=== PATIENT | female | born 1940 | race Caucasian/White ===

== ENCOUNTER 2016-03-31 09:43 | Outpatient (CLI) | payer MEDICARE | END 2016-03-31 09:44 | disposition home or self-care (01) | DX: Z12.31 Encounter for screening mammogram for malignant neoplasm of breast (principal) ==

== ENCOUNTER 2016-10-28 07:17 | Outpatient (CLI) | payer MEDICARE ==
--- NOTE | 2016-10-28 11:48 | Ultrasound Report ---
COMPLETE ABDOMINAL ULTRASOUND: 10/28/2016 CLINICAL INDICATION: Pain. TECHNIQUE: Real-time scanning was performed with telephone services sales representative static images obtained. FINDINGS: The liver measures 12.8 cm. Hepatic echogenicity is normal. No intrahepatic biliary dila tation or focal parenchymal lesion is present. The common bile duct measures 6 mm. The gallbladder is normal, as is the pancreas. The kidneys are normal, with the right measuring 10.1 cm and the left measuring 10.3 cm. The spleen measures 7.1 cm, and appears unremarkable. The abdominal aorta is no rmal in caliber. The inferior vena cava is unremarkable. No free fluid is present. IMPRESSION: NORMAL ABDOMINAL ULTRASOUND. JOB #: [id number] EXT JOB #:[id number]
== END 2016-10-28 07:18 | disposition home or self-care (01) ==
LOC: DI 07:17
PROVIDERS: ATTEND Registered Nurse
DX: R10.11 Right upper quadrant pain (principal)
CPT/HCPCS: 76700

== ENCOUNTER 2017-02-09 10:04 | Outpatient (CLI) | payer MEDICARE ==
--- NOTE | 2017-02-11 16:57 | DEXA Report ---
DEXA: 02/09/2017 CLINICAL INDICATION: Postmenopausal. TECHNIQUE: Dual energy x-ray absorptiometry (DXA) was performed on a [employer] system. Regions measured are the AP spine, femoral neck, and, if needed, forearm. COMPARISON: None. In accordance with the International Society for Clinical Densitometry (ISCD) guidelines, data from previous exams may be reanalyzed using current recommendations and techniques. This is done to allow a more accurate basis for comparison with the current study. FINDINGS: The data for the lumbar spine is as follows: REGION BMD (g/cm/cm) T-SCORE Z-SCORE L1 0.720 -3.4 -1.7 L2 0.957 -2.0 -0.4 L3 1.009 -1.6 0.1 L4 1.058 -1.2 0.5 TOTAL 0.948 -1.9 -0.3 NOTE: All evaluable vertebrae are used for classification. The data for the hip is as follows: REGION BMD (g/cm/cm) T-SCORE Z-SCORE Neck 0.657 -2.7 -0.8 TOTAL 0.672 -2.7 -0.9 NOTE: The femoral neck or total proximal femur, whichever is lowest, is used for classification. IMPRESSION THE WHO CLASSIFICATION BASED ON THE INTERNATIONAL REFERENCE STANDARD IS OSTEOPOROSIS. THE FRACTURE RISK IS HIGH. RECOMMENDATION: Patients with diagnosis of osteoporosis or osteopenia should have regular bone mineral density assessment. For those eligible for Medicare, routine testing is allowed once every 2 years. Testing frequency can be increased for patients who have rapidly progressing disease or for those who are receiving medical therapy to restore bone mass. COMMENT: World Health Organization (WHO) definitions for osteoporosis and osteopenia: NORMAL BMD: T-score at 1.0 or higher, fracture risk is low. OSTEOPENIA BMD: T-score between 1.0 and -2.5, fracture risk is increased. OSTEOPOROSIS BMD: T-score at 2.5 or lower, fracture risk high. National Osteoporosis Foundation recommends: 1. Obtain adequate dietary calcium (at least 1200 mg per day) and vitamin D (400 -800 international units per day). 2. Participate, as appropriate, in regular weightbearing and muscle- strengthening exercise. 3. Avoid tobacco use and reduce alcohol and caffeine intake. 4. For more detailed information see the website at www.NOF.org. TD: 02/09/2017 18:53 MTDToney
== END 2017-02-09 10:05 | disposition home or self-care (01) ==
LOC: DI 10:04
PROVIDERS: ATTEND Registered Nurse
DX: M81.0 Age-related osteoporosis without current pathological fracture (principal); N95.8 Other specified menopausal and perimenopausal disorders
CPT/HCPCS: 77080

== ENCOUNTER 2019-08-24 07:11 | Day surgery (SDC) | payer MEDICARE ==
[2019-08-24] MEDS ORDERED: fentaNYL 100 MCG/2 ML VIAL IVP ONE (07:12)
[2019-08-24] MEDS ORDERED: MIDAZOLAM 2 MG/2 ML VIAL IVP ONE (07:12)
[2019-08-24] MEDS ORDERED: LACTATED RINGERS 1,000 ML IV ONE (07:58)
[2019-08-24] MEDS ORDERED: LIDO GARGLE 30 ML BOTTLE ONE (08:48)
[2019-08-24] MEDS ORDERED: LIDO GARGLE 30 ML BOTTLE PO ONE (09:11)
[2019-08-24] MEDS ORDERED: BENZOCAINE/TETRACAINE/BUTAMBEN 20 GM TOP ONE (09:12)
[2019-08-24 10:04] VITALS: BP 144/63
== END 2019-08-24 07:12 | disposition home or self-care (01) ==
LOC: SDS 07:11
PROVIDERS: ATTEND Surgery
PROC: 0DB68ZX Excision of Stomach, Via Natural or Artificial Opening Endoscopic, Diagnostic (ICD-10-PCS; 2019-08-24)
PROC: 0DB58ZX Excision of Esophagus, Via Natural or Artificial Opening Endoscopic, Diagnostic (ICD-10-PCS; 2019-08-24)
PROC: 0DB98ZX Excision of Duodenum, Via Natural or Artificial Opening Endoscopic, Diagnostic (ICD-10-PCS; principal; 2019-08-24 08:15)
DX: K21.9 Gastro-esophageal reflux disease without esophagitis (principal); R13.10 Dysphagia, unspecified; K22.8 Other specified diseases of esophagus
CPT/HCPCS: 43239; A9270; J7120

== ENCOUNTER 2019-09-06 14:15 | Outpatient (CLI) | payer MEDICARE ==
--- NOTE | 2019-09-06 16:15 | DEXA Report ---
Reason: OSTEOPOROSIS Procedure Date: 09/06/2019 Accession Number: [id number] / [id number] Procedure: DEX - Dexa Spine and/or Hip CPT Code: Final Report FULL RESULT: PROCEDURE: Dexa Spine and/or Hip INDICATIONS: OSTEOPOROSIS TECHNIQUE: Dual energy x-ray absorptiometry (DXA) was performed on a [employer] System. Regions measured are the AP Spine, femoral neck, and if needed forearm. COMPARISON: None. FINDINGS: Lumbar Spine: Bone Mineral Density 0.974 g/cm/cm,T score -1.7, osteopenia Left Hip: Bone Mineral Density 0.622 g/cm/cm,T score -3.1, osteoporosis Left Femoral Neck: Bone Mineral Density 0.605 g/cm/cm, T score -3.1, osteoporosis (T score greater or equal to -1.0: NORMAL) (T score from -1.1 to -2.4: OSTEOPENIA) (T score less than or equal to -2.5 to: OSTEOPOROSIS) Impression: Osteoporosis. Patients with diagnosis of osteoporosis or osteopenia should have regular bone mineral density assessment. For those eligible for Medicare, routine testing is allowed once every 2 years. Testing frequency can be increased for patients who have rapidly progressing disease or for those who are receiving medical therapy to restore bone mass. Reviewed by: Judy Saucedo MD, PhD on 09/06/2019 4:13 PM PDT Approved by: Judy Saucedo MD, PhD on 09/06/2019 4:13 PM PDT Station ID: [id number]
== END 2019-09-06 14:16 | disposition home or self-care (01) ==
LOC: DI 14:15
PROVIDERS: ATTEND Registered Nurse
DX: M81.0 Age-related osteoporosis without current pathological fracture (principal); M85.88 Other specified disorders of bone density and structure, other site
CPT/HCPCS: 77080

== ENCOUNTER 2021-03-06 17:28 | Emergency (ER) | payer MEDICARE ==
[2021-03-06 18:36] LABS: BASOPHILS # (AUTO) 0.1 10^3/uL (0.0-0.1); BASOPHILS % (AUTO) 1.1 %; EOSINOPHILS # (AUTO) 0.4 10^3/uL (0.0-0.7); EOSINOPHILS % (AUTO) 7.5 %; HCT - HEMATOCRIT 38.1 % (37.0-47.0); HGB - HEMOGLOBIN 13.2 g/dL (12.0-16.0); LYMPHOCYTES # (AUTO) 1.3 10^3/uL (1.5-3.5); LYMPHOCYTES % (AUTO) 24.3 %; MEAN CORPUSCULAR HEMOGLOBIN 33.8 pg (27.0-31.0); MEAN CORPUSCULAR HGB CONC 34.6 g/dL (32.0-36.0); MEAN CORPUSCULAR VOLUME 97.7 fL (81.0-99.0); MONOCYTES # (AUTO) 0.8 10^3/uL (0.0-1.0); MONOCYTES % (AUTO) 14.8 %; NEUTROPHILS # (AUTO) 2.9 10^3/uL (1.5-6.6); NEUTROPHILS % (AUTO) 52.1 %; PLT - PLATELET COUNT 236 10^3/uL (130-450); RED CELL DISTRIBUTION WIDTH 12.6 % (12.0-15.0); WHITE BLOOD COUNT 5.5 x10^3/uL (4.8-10.8)
[2021-03-06 18:46] LABS: ALBUMIN 3.9 g/dL (3.2-5.5); ALBUMIN/GLOBULIN RATIO 1.2 (1.0-2.2); BILIRUBIN,TOTAL 0.5 mg/dL (0.2-1.0); CALCIUM 8.9 mg/dL (8.5-10.3); CREATININE 0.7 mg/dL (0.4-1.0); POTASSIUM 4.2 mmol/L (3.5-5.0); TOTAL PROTEIN 7.1 g/dL (6.7-8.2)
--- NOTE | 2021-03-06 20:18 | ED Physician Documentation ---
History of Present Illness - Stated complaint Stated Complaint: CRITICAL POTASSIUM LEVELS, PCP SENT - Chief complaint Chief Complaint: General - Additonal information Additional information: 80-year-old female was advised to come to the emergency department for evaluation of critically low potassium obtained on screening labs on the . Patient reports that her provider told her her potassium was low however it appears that it was likely the sodium that they were referencing. Labs drawn on the showed a sodium of 125. Patient reports feeling well. No headache, nausea, vomiting, chest pain or shortness of air. No unilateral leg swelling. She does not take any diuretics. Past medical history: hypertension, diabetes Meds metformin, glipizide, atorvastatin, coenzyme Q 10, 81 mg aspirin. Review of Systems Constitutional: denies: Fever, Chills Eyes: reports: Reviewed and negative Throat: reports: Reviewed and negative Cardiac: reports: Reviewed and negative Respiratory: reports: Reviewed and negative. denies: Dyspnea, Cough, Hemoptysis, Wheezing, Other GI: reports: Reviewed and negative : reports: Reviewed and negative Skin: reports: Reviewed and negative Musculoskeletal: reports: Reviewed and negative PD PAST MEDICAL HISTORY - Past Medical History Cardiovascular: Hypertension, High cholesterol Endocrine/Autoimmune: Type 2 diabetes GI: GERD, Chronic diarrhea HEENT: None Psych: Anxiety, Panic attacks - Present Medications Home Medications: Ambulatory Orders Medication Instructions Recorded Confirmed Ascorbic Acid [Vitamin C] 500 mg PO DAILY 03/12/16 03/12/16 Aspirin [Aspir-Low] 81 mg PO DAILY 03/12/16 03/12/16 Cyanocobalamin (Vitamin B-12) 500 mcg PO BID 03/12/16 03/12/16 [Vitamin B-12] Metformin HCl 500 mg PO BIDWM 03/12/16 03/12/16 Multivit/Folic Acid/Vit K1 1 each PO DAILY 03/12/16 03/12/16 [One-A-Day Women's 50 Plus Tab] Mylanta 1 tbs PO TID 03/12/16 03/13/16 Simvastatin 60 mg PO QPM 03/12/16 08/24/19 glipiZIDE [Glipizide] 5 mg PO BIDWM 03/12/16 03/12/16 - Allergies Allergies/Adverse Reactions: Allergies Allergy/AdvReac Type Severity Reaction Status Date / Time NSAIDS (Non-Steroidal Allergy Respiratory Verified 03/06/21 17:46 Anti-Inflamma blood pressure meds Allergy Anaphylaxis Uncoded 03/06/21 17:46 - Social History Smoking Status: Never smoker PD ED PE NORMAL - General General: Alert and oriented X 3, No acute distress - HEENT HEENT: PERRL - Neck Neck: Supple, no meningeal sign, No adenopathy - Cardiac Cardiac: RRR, No murmur - Respiratory Respiratory: No respiratory distress, Clear bilaterally - Abdomen Abdomen: Normal bowel sounds, Soft, Non tender, Non distended - Female Female : Deferred - Back Back: No CVA TTP - Derm Derm: Normal color, Warm and dry Results - Vitals Vitals: Vital Signs - 24 hr 03/06/21 17:42 Temperature 36.3 C L Heart Rate 91 Respiratory 16 Rate Blood Pressure 166/80 H O2 Saturation 99 Oxygen O2 Source Room air - Labs Labs: Laboratory Tests 03/06/21 03/06/21 18:29 18:29 WBC 5.5 RBC 3.90 L Hgb 13.2 Hct 38.1 MCV 97.7 MCH 33.8 H MCHC 34.6 RDW 12.6 Plt Count 236 MPV 9.0 Neut # (Auto) 2.9 Lymph # (Auto) 1.3 L [place] # (Auto) 0.8 Eos # (Auto) 0.4 Baso # (Auto) 0.1 Absolute Nucleated RBC 0.00 Nucleated RBC % 0.0 Sodium 127 L Potassium 4.2 Chloride 88 L Carbon Dioxide 30 Anion Gap 9.0 BUN 14 Creatinine 0.7 Estimated GFR (MDRD) 81 L Glucose 241 H Calcium 8.9 Total Bilirubin 0.5 AST 22 ALT 20 Alkaline Phosphatase 52 Total Protein 7.1 Albumin 3.9 Globulin 3.2 Albumin/Globulin Ratio 1.2 Lipase 28 PD MEDICAL DECISION MAKING - ED course Complexity details: reviewed results, re-evaluated patient, considered differential, d/w patient ED course: Well-appearing 80-year-old female presents emergency department for evaluation of abnormal labs. Reportedly she was told she had a critically low potassium. In review of the labs obtained on the her sodium is 125. On repeat today it is 127. The patient has no headache, nausea, vomiting or altered mentation. Clinically she would not meet the criteria for hospitalization nor does she desire this. Patient is not taking any diuretics and has no reason for potassium or sodium loss. Patient is encouraged to take an extra dose of salt with her meals as well as to Limit her water intake to 1.5 L daily. Advised to have close follow-up with her primary care doctor next week in order to have her labs repeated. Departure - Departure Disposition: 01 Home, Self Care Clinical Impression: Hyponatremia Condition: Stable Record reviewed to determine appropriate education?: Yes Instructions: Hyponatremia Dc Follow-Up: SHALA JACKSON ARNP [Primary Care Provider] - Comments: Cass your provider advised you to come into the ER for reevaluation of your labs. He had reportedly said that you had a low potassium but I suspect that he meant you had a low sodium level. Your sodium level on the was 125. Today it is 127. Because she do not have any other worrisome findings on your clinical exam or labs there is no indication to admit you to the hospital. I recommend that you limit your water intake to 1.5 L a day and consume some extra salt over the next week. I would like you to have your labs rechecked with your primary care doctor next week. If you develop a sudden severe headache or have uncontrolled vomiting then please return immediately to the ER for a second evaluation.
[2021-03-06 20:23] VITALS: BP 138/80
== END 2021-03-06 20:21 | disposition home or self-care (01) ==
LOC: ED 17:28
DX: E87.1 Hypo-osmolality and hyponatremia (principal); E11.9 Type 2 diabetes mellitus without complications; Z79.84 Long term (current) use of oral hypoglycemic drugs; I10 Essential (primary) hypertension
CPT/HCPCS: 36415; 80053; 83690; 85025; 99282; 99283

== ENCOUNTER 2021-08-13 08:00 | Outpatient (CLI) | payer MEDICARE | END 2021-08-13 08:01 | disposition home or self-care (01) | LOC: LAB.S 08:00 | PROVIDERS: ATTEND Physician Assistant | DX: N39.0 Urinary tract infection, site not specified (principal) | CPT/HCPCS: 87086 ==

== ENCOUNTER 2021-10-17 08:00 | Outpatient (CLI) | payer MEDICARE | END 2021-10-17 23:59 | disposition home or self-care (01) | LOC: LAB 08:00 | PROVIDERS: ATTEND Physician Assistant | DX: R39.15 Urgency of urination (principal) | CPT/HCPCS: 87077; 87086 ==

== ENCOUNTER 2022-01-14 11:37 | Emergency (ER) | payer MEDICARE ==
[2022-01-14 12:16] LABS: BASOPHILS # (AUTO) 0.1 10^3/uL (0.0-0.1); EOSINOPHILS % (AUTO) 0.6 %; HCT - HEMATOCRIT 34.9 % (37.0-47.0); HGB - HEMOGLOBIN 12.1 g/dL (12.0-16.0); LYMPHOCYTES # (AUTO) 0.5 10^3/uL (1.5-3.5); MEAN CORPUSCULAR HEMOGLOBIN 34.3 pg (27.0-31.0); MEAN CORPUSCULAR HGB CONC 34.7 g/dL (32.0-36.0); MEAN CORPUSCULAR VOLUME 98.9 fL (81.0-99.0); MONOCYTES # (AUTO) 0.7 10^3/uL (0.0-1.0); MONOCYTES % (AUTO) 13.9 %; NEUTROPHILS # (AUTO) 3.8 10^3/uL (1.5-6.6); NEUTROPHILS % (AUTO) 75.1 %; PLT - PLATELET COUNT 183 10^3/uL (130-450); RED BLOOD COUNT 3.53 10^6/uL (4.20-5.40); RED CELL DISTRIBUTION WIDTH 12.5 % (12.0-15.0); WHITE BLOOD COUNT 5.1 x10^3/uL (4.8-10.8)
--- NOTE | 2022-01-14 12:21 | XRAY Report ---
PROCEDURE: Chest 1 View X-Ray INDICATIONS: cough TECHNIQUE: One view of the chest was acquired. COMPARISON: None. FINDINGS: Surgical changes and devices: None. Lungs and pleura: No pleural effusions or pneumothorax. Lungs are clear. Mediastinum: Mediastinal contours appear normal. Heart size is mildly enlarged. Bones and chest wall: No suspicious bony lesions. Overlying soft tissues appear unremarkable. IMPRESSION: No acute cardiopulmonary findings. Mild cardiomegaly. Reviewed by: Rayna Simeon MD on 01/14/2022 12:20 PM [facility] Approved by: Rayna Simeon MD on 01/14/2022 12:20 PM [facility] Station ID: [id number]
--- NOTE | 2022-01-14 12:26 | ED Physician Documentation ---
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 Patient has recently had a cough which became much worse yesterday and she was coughing significantly throughout the day. In the evening time, noted that she appeared to have some difficulty with her speech. He felt that she was having trouble in completing her sentences And seemed to slightly slur her words. This morning he says that her speech is back to normal but she seems confused from her baseline. She does not have a history of known dementia.Other than the cough she has not had any other recent illnesses. She has been eating normally and not having difficulties with swallowing.Patient denies fall or injury. She does not take a blood thinner. Denies headache, chest pain, difficulty breathing, abdominal pain, vomiting, dysuria. Review of Systems Constitutional: denies: Fever Nose: reports: Congestion Cardiac: denies: Chest pain / pressure Respiratory: reports: Cough. denies: Dyspnea GI: denies: Abdominal Pain : denies: Dysuria Neurologic: denies: Syncope, Headache PD PAST MEDICAL HISTORY - Past Medical History Cardiovascular: Hypertension, High cholesterol Endocrine/Autoimmune: Type 2 diabetes GI: GERD, Chronic diarrhea HEENT: None Psych: Anxiety, Panic attacks - Present Medications Home Medications: Ambulatory Orders Medication Instructions Recorded Confirmed Ascorbic Acid [Vitamin C] 500 mg PO DAILY 03/12/16 09/05/21 Aspirin [Aspir-Low] 81 mg PO DAILY 03/12/16 09/05/21 Cyanocobalamin (Vitamin B-12) 500 mcg PO BID 03/12/16 09/05/21 [Vitamin B-12] Metformin HCl 500 mg PO BIDWM 03/12/16 09/05/21 Multivit/Folic Acid/Vit K1 1 each PO DAILY 03/12/16 09/05/21 [One-A-Day Women's 50 Plus Tab] Mylanta 1 tbs PO TID 03/12/16 09/05/21 Simvastatin 60 mg PO QPM 03/12/16 09/05/21 glipiZIDE [Glipizide] 5 mg PO BIDWM 03/12/16 09/05/21 Benzonatate [Tessalon] 200 mg PO QID PRN #20 cap 01/14/22 - Allergies Allergies/Adverse Reactions: Allergies Allergy/AdvReac Type Severity Reaction Status Date / Time NSAIDS (Non-Steroidal Allergy Respiratory Verified 01/14/22 11:48 Anti-Inflamma - Social History Smoking Status: Never smoker PD ED PE NORMAL - General General: Alert and oriented X 3, No acute distress, Well developed/nourished - HEENT HEENT: Atraumatic, PERRL, EOMI, Moist mucous membranes, Pharynx benign - Neck Neck: Supple, no meningeal sign - Cardiac Cardiac: RRR, No murmur - Respiratory Respiratory: No respiratory distress, Clear bilaterally, Other (Nonproductive cough when taking deep breaths) - Abdomen Abdomen: Soft, Non tender - Derm Derm: Warm and dry - Extremities Extremities: No edema - Neuro Neuro: Alert and oriented X 3, leather coater 2-12 intact, No motor deficit, No sensory deficit Results - Vitals Vitals: Vital Signs - 24 hr 01/14/22 01/14/22 01/14/22 11:45 12:19 12:57 Temperature 37.8 C Heart Rate 100 94 91 Respiratory 18 21 22 Rate Blood Pressure 171/85 H 129/87 H 142/130 H O2 Saturation 96 97 95 01/14/22 01/14/22 01/14/22 13:00 14:11 14:30 Temperature Heart Rate 81 83 87 Respiratory 16 20 20 Rate Blood Pressure 159/81 H 176/71 H 179/71 H O2 Saturation 96 95 98 01/14/22 15:15 Temperature Heart Rate 80 Respiratory 20 Rate Blood Pressure 162/76 H O2 Saturation 100 Oxygen O2 Source Room air - EKG (time done) 1142 Rate: Rate (enter#) (100) Rhythm: Sinus tachycardia [place]: Normal Ischemia: No: ST elevation c/w ischemia - Labs Labs: Laboratory Tests 01/14/22 01/14/22 01/14/22 11:57 12:00 12:00 WBC 5.1 RBC 3.53 L Hgb 12.1 Hct 34.9 L MCV 98.9 MCH 34.3 H MCHC 34.7 RDW 12.5 Plt Count 183 MPV 9.0 Neut # (Auto) 3.8 Lymph # (Auto) 0.5 L [place] # (Auto) 0.7 Eos # (Auto) 0.0 Baso # (Auto) 0.1 Absolute Nucleated RBC 0.00 Nucleated RBC % 0.0 Sodium 125 L Potassium 4.3 Chloride 89 L Carbon Dioxide 27 Anion Gap 9.0 BUN 13 Creatinine 0.6 Estimated GFR (MDRD) 96 Glucose 207 H POC Whole Bld Glucose 232 H Calcium 8.6 Total Bilirubin 0.5 AST 28 ALT 21 Alkaline Phosphatase 50 Total Protein 6.9 Albumin 3.6 Globulin 3.3 Albumin/Globulin Ratio 1.1 Lipase 32 Urine Color Urine Clarity Urine pH Ur Specific [place] Urine Protein Urine Glucose (UA) Urine Ketones Urine Occult Blood Urine Nitrite Urine Bilirubin Urine Urobilinogen Ur Leukocyte Esterase Urine RBC Urine WBC Ur Squamous Epith Cells Urine Bacteria Urine Mucus Ur Microscopic Review Urine Culture Comments Nasal Adenovirus (PCR) Nasal B. parapertussis DNA (PCR) Nasal Coronavir 229E PCR Nasal Coronavir HKU1 PCR Nasal Coronavir NL63 PCR Nasal Coronavir OC43 PCR Nasal Enterovir/Rhinovir PCR Nasal Influenza B PCR Nasal Influenza A PCR Nasal Parainfluen 1 PCR Nasal Parainfluen 2 PCR Nasal Parainfluen 3 PCR Nasal Parainfluen 4 PCR Nasal RSV (PCR) Nasal B.pertussis DNA PCR Nasal C.pneumoniae (PCR) [place] Human Metapneumo PCR Nasal M.pneumoniae (PCR) Nasal SARS-CoV-2 (PCR) 01/14/22 01/14/22 12:15 13:30 WBC RBC Hgb Hct MCV MCH MCHC RDW Plt Count MPV Neut # (Auto) Lymph # (Auto) [place] # (Auto) Eos # (Auto) Baso # (Auto) Absolute Nucleated RBC Nucleated RBC % Sodium Potassium Chloride Carbon Dioxide Anion Gap BUN Creatinine Estimated GFR (MDRD) Glucose POC Whole Bld Glucose Calcium Total Bilirubin AST ALT Alkaline Phosphatase Total Protein Albumin Globulin Albumin/Globulin Ratio Lipase Urine Color YELLOW Urine Clarity HAZY Urine pH 7.0 Ur Specific [place] 1.015 Urine Protein NEGATIVE Urine Glucose (UA) NEGATIVE Urine Ketones NEGATIVE Urine Occult Blood TRACE-INTA Urine Nitrite NEGATIVE Urine Bilirubin NEGATIVE Urine Urobilinogen 0.2 (NORMAL) Ur Leukocyte Esterase TRACE H Urine RBC 0-5 Urine WBC 6-10 H Ur Squamous Epith Cells MOD Squamous H Urine Bacteria Rare Urine Mucus Few Strands Ur Microscopic Review INDICATED Urine Culture Comments NOT INDICATED Nasal Adenovirus (PCR) NOT DETECTED Nasal B. parapertussis DNA (PCR) NOT DETECTED Nasal Coronavir 229E PCR NOT DETECTED Nasal Coronavir HKU1 PCR NOT DETECTED Nasal Coronavir NL63 PCR NOT DETECTED Nasal Coronavir OC43 PCR NOT DETECTED Nasal Enterovir/Rhinovir PCR NOT DETECTED Nasal Influenza B PCR NOT DETECTED Nasal Influenza A PCR NOT DETECTED Nasal Parainfluen 1 PCR NOT DETECTED Nasal Parainfluen 2 PCR NOT DETECTED Nasal Parainfluen 3 PCR DETECTED A Nasal Parainfluen 4 PCR NOT DETECTED Nasal RSV (PCR) NOT DETECTED Nasal B.pertussis DNA PCR NOT DETECTED Nasal C.pneumoniae (PCR) NOT DETECTED [place] Human Metapneumo PCR NOT DETECTED Nasal M.pneumoniae (PCR) NOT DETECTED Nasal SARS-CoV-2 (PCR) NOT DETECTED PD MEDICAL DECISION MAKING - ED course Complexity details: reviewed results, re-evaluated patient, d/w patient, d/w family ED course: Patient is a 81-year-old female presenting for evaluation of some mild confusion, may be some slow speech yesterday and word finding issues. Currently her neuro exam is normal and reports that her symptoms yesterday were brief. She has had a severe cough and Nasal congestion.Per she no longer appears altered and has clear speech. She never had any focal deficits.She never had any difficulty with swallowing.Labs and imaging were obtained. Patient is noted to have a viral URI.She is known to have a harsh cough through her ED course and that seems to be her primary complaint at this time. Suspect that her viral illness Is contributory to the other symptoms Her was noticing.Feel that a stroke is less likely in this setting Given how brief her symptoms were.Patient and were encouraged to continue with supportive care and advised on strict return precautions. Departure - Departure Disposition: 01 Home, Self Care Clinical Impression: Parainfluenza infection, Weakness Condition: Stable Instructions: ED Viral Syndrome Prescriptions: Benzonatate [Tessalon] 200 mg PO QID PRN #20 cap PRN Reason: Cough Comments: Cass was found to have a viral infection called Parainfluenza. This is likely what is causing her cough as well as increased weakness for the past 2 days. Please continue with rest and hydration/eating regularly. I have sent a medication to help with your cough to [facility] in [place]. Please make an appointment for close follow-up with your primary care doctor. Please consider return to the ER with any worsening symptoms. Discharge Date/Time: 01/14/22 15:19
[2022-01-14 12:29] LABS: ALBUMIN 3.6 g/dL (3.2-5.5); ALBUMIN/GLOBULIN RATIO 1.1 (1.0-2.2); BILIRUBIN,TOTAL 0.5 mg/dL (0.2-1.0); CALCIUM 8.6 mg/dL (8.5-10.3); CREATININE 0.6 mg/dL (0.4-1.0); POTASSIUM 4.3 mmol/L (3.5-5.0); TOTAL PROTEIN 6.9 g/dL (6.7-8.2)
[2022-01-14] MEDS ORDERED: guaiFENesin/DEXTROMETHORPHAN 10 ML UDC PO STA (13:30)
[2022-01-14 13:39] LABS: BILIRUBIN,URINE NEGATIVE (NEGATIVE); GLUCOSE, URINE (UA) NEGATIVE (NEGATIVE); KETONES,URINE (UA) NEGATIVE (NEGATIVE); LEUKOCYTE ESTERASE, URINE TRACE (NEGATIVE); NITRITE,URINE NEGATIVE (NEGATIVE); OCCULT BLOOD,URINE TRACE-INTA (NEGATIVE); PROTEIN,URINE NEGATIVE (NEGATIVE); UROBILINOGEN,URINE 0.2 (NORMAL) E.U./dL (NORMAL)
[2022-01-14 13:42] LABS: CLARITY,URINE HAZY (CLEAR)
[2022-01-14 13:45] LABS: B. PARAPERTUSSIS- RESP PCR PAN NOT DETECTED; B. PERTUSSIS- RESP PCR PANEL NOT DETECTED; C. PNEUMONIAE- RESP PCR PANEL NOT DETECTED; CORONAVIRUS 229E-RESP PCR NOT DETECTED; CORONAVIRUS HKU1-RESP PCR NOT DETECTED; CORONAVIRUS NL63-RESP PCR NOT DETECTED; CORONAVIRUS OC43-RESP PCR NOT DETECTED; HUMAN METAPNEUMOVIRUS NOT DETECTED; INFLUENZA A- RESP PCR PANEL NOT DETECTED; INFLUENZA B - RESP PCR PANEL NOT DETECTED; M. PNEUMONIAE- RESP PCR PANEL NOT DETECTED; PARAINFLUENZA VIRUS 1 NOT DETECTED; PARAINFLUENZA VIRUS 2 NOT DETECTED; PARAINFLUENZA VIRUS 3 DETECTED; PARAINFLUENZA VIRUS 4 NOT DETECTED; RHINOVIRUS/ENTEROVIRUS NOT DETECTED; RSV- RESP PCR PANEL NOT DETECTED; SARS-CoV-2 -RESP PCR PANEL NOT DETECTED
[2022-01-14 13:57] LABS: BACTERIA,URINE Rare /HPF (None Seen); MUCUS,URINE Few Strands; RBC,URINE 0-5 /HPF (0-5); SQUAMOUS EPITHELIAL CELL,UR MOD Squamous (<= Few)
--- NOTE | 2022-01-14 14:08 | CT Report ---
PROCEDURE: HEAD WO INDICATIONS: confusion TECHNIQUE: Noncontrast 4.5 mm thick angled axial sections acquired from the foramen magnum to the vertex. For r adiation dose reduction, the following was used: automated exposure control, adjustment of mA and/or kV according to patient size. COMPARISON: None. FINDINGS: Image quality: Excellent CSF spaces: Basal cisterns are patent. Lateral ventricles are symmetric. Volume: Periventricular white matter disease is commonly seen with chronic microangiopathy. Volume lo ss is present. These findings are moderate. Vascular calcifications are present. Brain: No intracranial hemorrhage. Lopez-white differentiation is grossly maintained. Craniofacial structures: No displaced fracture. Sinuses are clear. Orbits are intact. IMPRESSION: No acute intracranial abnormality. Reviewed by: Skip Olivera MD on 01/14/2022 2:06 PM PST Approved by: Skip Olivera MD on 01/14/2022 2:06 PM [facility] Station ID: [id number]
[2022-01-14 15:15] VITALS: BP 162/76
== END 2022-01-14 15:19 | disposition home or self-care (01) ==
LOC: ED 11:37
DX: B34.8 Other viral infections of unspecified site (principal); R53.1 Weakness; Z20.822 Contact with and (suspected) exposure to COVID-19
CPT/HCPCS: 36415; 70450; 71045; 80053; 81001; 83690; 85025; 87633; 93005; 99284; A9270; 81003; 84484; 87086

== ENCOUNTER 2022-02-26 15:33 | Outpatient (CLI) | payer MEDICARE ==
[2022-02-26 15:54] LABS: ALBUMIN 3.4 g/dL (3.2-5.5); BILIRUBIN,TOTAL 0.5 mg/dL (0.2-1.0); CALCIUM 9.1 mg/dL (8.5-10.3); CREATININE 0.8 mg/dL (0.4-1.0); POTASSIUM 4.9 mmol/L (3.5-5.0); TOTAL PROTEIN 6.7 g/dL (6.7-8.2)
== END 2022-02-26 15:34 | disposition home or self-care (01) ==
LOC: LAB 15:33
PROVIDERS: ATTEND Nurse Practitioner Family
DX: M81.0 Age-related osteoporosis without current pathological fracture (principal)
CPT/HCPCS: 36415; 80053

== ENCOUNTER 2022-02-28 09:02 | Outpatient (CLI) | payer MEDICARE ==
[~2022-02-28 09:02] MED LIST: GADOBUTROL 7.5 MMOL/7.5 ML VIAL ONE
[2022-02-28] MEDS ORDERED: GADOBUTROL 7.5 MMOL/7.5 ML VIAL IVP ONE (11:56)
--- NOTE | 2022-03-02 08:34 | MRI Report ---
PROCEDURE: BRAIN W/WO INDICATIONS: CONFUSION CONTRAST: GADAVIST 6.8ML TECHNIQUE: Noncontrast axial T1 spin echo, axial T2 fast spin echo, sagittal and axial FLAIR, coronal T2 fast sp in echo, axial gradient echo, axial diffusion and ADC through the brain. After the administration of contrast, axial and coronal T1 spin echo with fat saturation through the brain. COMPARISON: CT head dated 01/14/2022. FINDINGS: Image quality: Excellent. CSF spaces: Basal cisterns are patent. No extra-axial fluid collections. Ventricles are normal in size and shape. Brain: No midline shift. No intracranial bleeds or masses. No abnormal intracranial enhancement. There is cerebral volume loss for age. There is periventricular white matter chronic small vessel is chemic change. The brainstem appears normal. There is a relatively small area of infarct with associ ated gliosis involving the left parieto-occipital region. There is what appears to be a small area of T2 shine through in the periventricular deep white matter. It is unclear whether this infarct was pr esent on the previous head CT. There are multiple tiny areas of hemosiderin deposition, which are pre sent in the carlyle and bilateral basal ganglia. These are of nonspecific etiology. Normal intravascular flow voids are present. Skull and face: Calvarial marrow is normal in signal. Orbits appear normal. Sinuses: Sinuses and mastoids appear clear. IMPRESSION: 1. Age-related volume loss and small vessel ischemic change. 2. 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 It is uncertain whether this infa rct was present on the previous CT from 01/14/2022. 3. Multiple punctate areas of hemosiderin deposition bilaterally. These are nonspecific. They may pot entially indicate amyloid angiopathy. 4. No evidence of acute intracranial process. Reviewed by: Sea Currie MD on 03/02/2022 8:33 AM PST Approved by: Sea Currie MD on 03/02/2022 8:33 AM PST Station ID: [id number]
--- NOTE | 2022-03-02 12:07 | MRI Report ---
PROCEDURE: ANGIO NECK W/WO INDICATIONS: CONFUSION CONTRAST: GADAVIST 6.8ML TECHNIQUE: Axial and sagittal balanced GE through the neck. Noncontrast 3 [id number] images were obtained t hrough the neck. Coronal dynamic MRA after the administration of contrast in the arterial and venous phases, with rotating 3-dimensional maximum intensity projection (MIP) reformats constructed from sub traction images. COMPARISON: Correlation is made with the accompanying MRI examinations. Correlation is also made wit h prior head CT, 01/14/2022. FINDINGS: Image quality: Mild motion artifact can be seen at the level of the shoulders. Carotid system: Great vessels demonstrate a conventional anatomy as they arise from the aortic arch. The origins of the common carotid arteries appear normal. The calibers and courses of the common c arotid arteries are likewise normal. The carotid bifurcations appear normal bilaterally. The buying intern al carotid arteries are widely patent up to the [place]. Approximately 50% narrowing can be seen involving each proximal external carotid artery. Posterior circulation: The origins of the vertebral arteries are unremarkable. The more superior po rtions of the vertebral arteries demonstrate normal course and caliber. Vertebral arteries join to f orm a normal appearing basilar artery. Miscellaneous: Subclavian arteries are patent throughout. Pre-contrast images through the neck demo nstrate no soft tissue abnormalities. No significant venous abnormality is seen. IMPRESSION: No significant internal carotid artery stenosis can be seen. No significant vertebral artery abnormality is seen. Approximately 50% external carotid artery stenosis seen proximally on each side. Reviewed by: Dre Bledsoe MD on 03/02/2022 11:06 AM [facility] Approved by: Dre Bledsoe MD on 03/02/2022 11:06 AM [facility] Station ID: [id number]
--- NOTE | 2022-03-02 12:09 | MRI Report ---
PROCEDURE: ANGIO HEAD WO INDICATIONS: CONFUSION TECHNIQUE: Noncontrast axial 3-D [id number] MR angiogram, with 3-dimensional maximum intensity projection (M IP) reformats of the internal carotid arteries and posterior circulation then performed. COMPARISON: Correlation is made with the prior head CT, 01/14/2022. Correlation is also made with e accompanying MRI examinations, 02/28/2022. FINDINGS: Image quality: Motion artifact is noted. Anterior circulation: Intracranial internal carotid arteries demonstrate normal size and intralumina l flow signal. The flow within the paired anterior cerebral arteries is normal and symmetric. The f low within the middle cerebral arteries is normal and symmetric. The anterior communicating artery i s not well seen. No stenoses, occlusions, or aneurysms. Posterior circulation: Visualized portions of the vertebral arteries demonstrate normal caliber, and join to form a normal appearing basilar artery. The flow within the posterior cerebral arteries is normal and symmetric. No stenoses, occlusions, or aneurysms. IMPRESSION: No significant intracranial arterial abnormalities are seen. Reviewed by: Dre Bledsoe MD on 03/02/2022 11:07 AM [facility] Approved by: Dre Bledsoe MD on 03/02/2022 11:07 AM [facility] Station ID: [id number]
== END 2022-02-28 09:03 | disposition home or self-care (01) ==
LOC: DI 09:02
PROVIDERS: ATTEND Internal Medicine Cardiovascular Disease
DX: I65.23 Occlusion and stenosis of bilateral carotid arteries (principal); R41.0 Disorientation, unspecified
CPT/HCPCS: 70544; 70549; 70553; A9585

== ENCOUNTER 2022-04-21 11:34 | Inpatient (IN) | payer MEDICARE ==
[2022-04-21 12:33] LABS: BASOPHILS # (AUTO) 0.1 10^3/uL (0.0-0.1); BASOPHILS % (AUTO) 0.7 %; EOSINOPHILS # (AUTO) 0.2 10^3/uL (0.0-0.7); EOSINOPHILS % (AUTO) 1.8 %; HCT - HEMATOCRIT 34.4 % (37.0-47.0); HGB - HEMOGLOBIN 12.2 g/dL (12.0-16.0); LYMPHOCYTES # (AUTO) 1.2 10^3/uL (1.5-3.5); LYMPHOCYTES % (AUTO) 13.9 %; MEAN CORPUSCULAR HEMOGLOBIN 34.3 pg (27.0-31.0); MEAN CORPUSCULAR HGB CONC 35.5 g/dL (32.0-36.0); MEAN CORPUSCULAR VOLUME 96.6 fL (81.0-99.0); MEAN PLATELET VOLUME 9.1 fL (7.9-10.8); MONOCYTES # (AUTO) 0.8 10^3/uL (0.0-1.0); MONOCYTES % (AUTO) 9.2 %; NEUTROPHILS # (AUTO) 6.1 10^3/uL (1.5-6.6); NEUTROPHILS % (AUTO) 74.2 %; PLT - PLATELET COUNT 201 10^3/uL (130-450); RED BLOOD COUNT 3.56 10^6/uL (4.20-5.40); RED CELL DISTRIBUTION WIDTH 13.1 % (12.0-15.0); WHITE BLOOD COUNT 8.3 x10^3/uL (4.8-10.8)
[2022-04-21 12:50] LABS: ALBUMIN 3.5 g/dL (3.2-5.5); ALBUMIN/GLOBULIN RATIO 1.1 (1.0-2.2); BILIRUBIN,TOTAL 0.6 mg/dL (0.2-1.0); CALCIUM 8.6 mg/dL (8.5-10.3); CREATININE 0.6 mg/dL (0.4-1.0); POTASSIUM 4.4 mmol/L (3.5-5.0); TOTAL PROTEIN 6.7 g/dL (6.7-8.2)
--- NOTE | 2022-04-21 13:56 | CT Report ---
PROCEDURE: HEAD WO INDICATIONS: confusion, dizzy TECHNIQUE: Noncontrast 4.5 mm thick angled axial sections acquired from the foramen magnum to the vertex. For r adiation dose reduction, the following was used: automated exposure control, adjustment of mA and/or kV according to patient size. COMPARISON: MR 02/28/2022 FINDINGS: Image quality: Excellent. CSF spaces: Basal cisterns are patent. No extra-axial fluid collections. Ventricles are normal in size and shape. Brain: No midline shift. No intracranial masses or hemorrhage. Lopez-white matter interface is norm al. Left parieto-occipital encephalomalacia, indicating prior infarct. Vascular calcifications. Anne ventricular white matter disease is commonly seen with chronic microangiopathy. Volume loss is presen t. These findings are within normal limits for age. Skull and face: Calvarium and visualized facial bones are intact, without suspicious lesions. Sinuses: Visualized sinuses and mastoids are clear. IMPRESSION: No acute intracranial process. Reviewed by: Jose Rodney on 04/21/2022 1:54 PM PST Approved by: Jose Rodney on 04/21/2022 1:54 PM PST Station ID: [id number]
[2022-04-21] MEDS ORDERED: SODIUM CHLORIDE 0.9% 1,000 ML IV STA ×2 (15:32)
[2022-04-21] MEDS ORDERED: ACETAMINOPHEN 325 MG TABLET PO STA (15:34)
--- NOTE | 2022-04-21 15:35 | ED Physician Documentation ---
History of Present Illness - Stated complaint Stated Complaint: HEADACHE/CONFUSION - Chief complaint Chief Complaint: Neuro - History obtained from History obtained from: Patient, Family - History of Present Illness Timing: Today Pain level max: 8 Pain level now: 0 - Additonal information Additional information: 81-year-old female brought in by her for increased confusion today. He states that she has had confusion and has been unable to complete tasks since her stroke in December. He states that today she is having some difficulty with word finding and difficulty remembering her left and right. He states that she has also complained of intermittent headaches today. Currently she states that she does not have any headaches. She does not have any vomiting, abdominal pain. He states that she felt warm today but does not know if she had a fever. states that she normally is conversant and coherent when she is conversant. He states that they walked down the street to a restaurant and had lunch with friends yesterday. Today she is unable to hold any type of conversation. She is restless and having difficulty sitting still. states that around 4 AM the patient came into his room complaining of a headache. Patient has been intermittently complained of a headache throughout the day. The last time he saw her normal was 9 PM last night. Review of Systems Unable to obtain: AMS, Confused PD PAST MEDICAL HISTORY - Past Medical History Cardiovascular: Hypertension, High cholesterol Endocrine/Autoimmune: Type 2 diabetes GI: GERD, Chronic diarrhea HEENT: None Psych: Anxiety, Panic attacks - Present Medications Home Medications: Ambulatory Orders Medication Instructions Recorded Confirmed Ascorbic Acid [Vitamin C] 500 mg PO DAILY 03/12/16 09/05/21 Aspirin [Aspir-Low] 81 mg PO DAILY 03/12/16 09/05/21 Cyanocobalamin (Vitamin B-12) 500 mcg PO BID 03/12/16 09/05/21 [Vitamin B-12] Metformin HCl 500 mg PO BIDWM 03/12/16 09/05/21 Multivit/Folic Acid/Vit K1 1 each PO DAILY 03/12/16 09/05/21 [One-A-Day Women's 50 Plus Tab] Mylanta 1 tbs PO TID 03/12/16 09/05/21 Simvastatin 60 mg PO QPM 03/12/16 09/05/21 glipiZIDE [Glipizide] 5 mg PO BIDWM 03/12/16 09/05/21 Benzonatate [Tessalon] 200 mg PO QID PRN #20 cap 01/14/22 - Allergies Allergies/Adverse Reactions: Allergies Allergy/AdvReac Type Severity Reaction Status Date / Time NSAIDS (Non-Steroidal Allergy Respiratory Verified 04/21/22 11:59 Anti-Inflamma - Social History Smoking Status: Never smoker PD ED PE NORMAL - Vitals Vital signs reviewed: Yes - General General: No acute distress, Well developed/nourished, Other (Alert, oriented to person only) - HEENT HEENT: Atraumatic, PERRL, Ears normal, Moist mucous membranes, Pharynx benign - Neck Neck: Supple, no meningeal sign - Cardiac Cardiac: RRR, Strong equal pulses - Respiratory Respiratory: No respiratory distress, Clear bilaterally - Abdomen Abdomen: Soft, Non tender, Non distended - Derm Derm: Warm and dry, No rash - Extremities Extremities: No edema - Neuro Neuro: No motor deficit, No sensory deficit Eye Opening: Spontaneous Motor: Localizes to Pain Verbal: Confused GCS Score: 13 Results - Vitals Vitals: Vital Signs - 24 hr 04/21/22 04/21/22 04/21/22 11:51 16:07 17:44 Temperature 36.8 C Heart Rate 84 88 84 Respiratory 16 17 16 Rate Blood Pressure 173/66 H 178/82 H O2 Saturation 97 100 100 04/21/22 04/21/22 19:46 21:07 Temperature 37.3 C Heart Rate 83 77 Respiratory 16 14 Rate Blood Pressure 191/72 H 180/77 H O2 Saturation 97 97 Oxygen O2 Source Room air - Labs Labs: Laboratory Tests 04/21/22 04/21/22 04/21/22 12:05 12:26 12:26 WBC 8.3 RBC 3.56 L Hgb 12.2 Hct 34.4 L MCV 96.6 MCH 34.3 H MCHC 35.5 RDW 13.1 Plt Count 201 MPV 9.1 Neut # (Auto) 6.1 Lymph # (Auto) 1.2 L Ballard # (Auto) 0.8 Eos # (Auto) 0.2 Baso # (Auto) 0.1 Absolute Nucleated RBC 0.00 Nucleated RBC % 0.0 Sodium 126 L Potassium 4.4 Chloride 91 L Carbon Dioxide 27 Anion Gap 8.0 BUN 11 Creatinine 0.6 Estimated GFR (MDRD) 96 Glucose 144 H POC Whole Bld Glucose 140 H Calcium 8.6 Total Bilirubin 0.6 AST 18 ALT 15 Alkaline Phosphatase 52 Ammonia Total Protein 6.7 Albumin 3.5 Globulin 3.2 Albumin/Globulin Ratio 1.1 Lipase 36 TSH Urine Color Urine Clarity Urine pH Ur Specific [place] Urine Protein Urine Glucose (UA) Urine Ketones Urine Occult Blood Urine Nitrite Urine Bilirubin Urine Urobilinogen Ur Leukocyte Esterase Ur Microscopic Review Urine Culture Comments Nasal Adenovirus (PCR) Nasal B. parapertussis DNA (PCR) Nasal Coronavir 229E PCR Nasal Coronavir HKU1 PCR Nasal Coronavir NL63 PCR Nasal Coronavir OC43 PCR Nasal Enterovir/Rhinovir PCR Nasal Influenza B PCR Nasal Influenza A PCR Nasal Parainfluen 1 PCR Nasal Parainfluen 2 PCR Nasal Parainfluen 3 PCR Nasal Parainfluen 4 PCR Nasal RSV (PCR) Nasal B.pertussis DNA PCR Nasal C.pneumoniae (PCR) [place] Human Metapneumo PCR Nasal M.pneumoniae (PCR) Nasal SARS-CoV-2 (PCR) Salicylates Urine Opiates Screen Ur Oxycodone Screen Urine Methadone Screen Ur Propoxyphene Screen Acetaminophen Ur Barbiturates Screen Ur Tricyclics Screen Ur Phencyclidine Scrn Ur Amphetamine Screen U Methamphetamines Scrn U Benzodiazepines Scrn Urine Cocaine Screen U Cannabinoids Screen Ethyl Alcohol 04/21/22 04/21/22 04/21/22 16:02 16:02 21:15 WBC RBC Hgb Hct MCV MCH MCHC RDW Plt Count MPV Neut # (Auto) Lymph # (Auto) Ballard # (Auto) Eos # (Auto) Baso # (Auto) Absolute Nucleated RBC Nucleated RBC % Sodium Potassium Chloride Carbon Dioxide Anion Gap BUN Creatinine Estimated GFR (MDRD) Glucose POC Whole Bld Glucose Calcium Total Bilirubin AST ALT Alkaline Phosphatase Ammonia Total Protein Albumin Globulin Albumin/Globulin Ratio Lipase TSH 0.62 Urine Color YELLOW Urine Clarity CLEAR Urine pH 8.0 H Ur Specific [place] 1.015 Urine Protein NEGATIVE Urine Glucose (UA) NEGATIVE Urine Ketones NEGATIVE Urine Occult Blood NEGATIVE Urine Nitrite NEGATIVE Urine Bilirubin NEGATIVE Urine Urobilinogen 0.2 (NORMAL) Ur Leukocyte Esterase NEGATIVE Ur Microscopic Review NOT INDICATED Urine Culture Comments NOT INDICATED Nasal Adenovirus (PCR) Nasal B. parapertussis DNA (PCR) Nasal Coronavir 229E PCR Nasal Coronavir HKU1 PCR Nasal Coronavir NL63 PCR Nasal Coronavir OC43 PCR Nasal Enterovir/Rhinovir PCR Nasal Influenza B PCR Nasal Influenza A PCR Nasal Parainfluen 1 PCR Nasal Parainfluen 2 PCR Nasal Parainfluen 3 PCR Nasal Parainfluen 4 PCR Nasal RSV (PCR) Nasal B.pertussis DNA PCR Nasal C.pneumoniae (PCR) [place] Human Metapneumo PCR Nasal M.pneumoniae (PCR) Nasal SARS-CoV-2 (PCR) Salicylates Urine Opiates Screen NEGATIVE Ur Oxycodone Screen NEGATIVE Urine Methadone Screen NEGATIVE Ur Propoxyphene Screen NEGATIVE Acetaminophen Ur Barbiturates Screen NEGATIVE Ur Tricyclics Screen NEGATIVE Ur Phencyclidine Scrn NEGATIVE Ur Amphetamine Screen NEGATIVE U Methamphetamines Scrn NEGATIVE U Benzodiazepines Scrn NEGATIVE Urine Cocaine Screen NEGATIVE U Cannabinoids Screen NEGATIVE Ethyl Alcohol 04/21/22 04/21/22 04/21/22 21:15 21:15 21:54 WBC RBC Hgb Hct MCV MCH MCHC RDW Plt Count MPV Neut # (Auto) Lymph # (Auto) Ballard # (Auto) Eos # (Auto) Baso # (Auto) Absolute Nucleated RBC Nucleated RBC % Sodium Potassium Chloride Carbon Dioxide Anion Gap BUN Creatinine Estimated GFR (MDRD) Glucose POC Whole Bld Glucose Calcium Total Bilirubin AST ALT Alkaline Phosphatase Ammonia 12.8 Total Protein Albumin Globulin Albumin/Globulin Ratio Lipase TSH Urine Color Urine Clarity Urine pH Ur Specific [place] Urine Protein Urine Glucose (UA) Urine Ketones Urine Occult Blood Urine Nitrite Urine Bilirubin Urine Urobilinogen Ur Leukocyte Esterase Ur Microscopic Review Urine Culture Comments Nasal Adenovirus (PCR) NOT DETECTED Nasal B. parapertussis DNA (PCR) NOT DETECTED Nasal Coronavir 229E PCR NOT DETECTED Nasal Coronavir HKU1 PCR NOT DETECTED Nasal Coronavir NL63 PCR NOT DETECTED Nasal Coronavir OC43 PCR NOT DETECTED Nasal Enterovir/Rhinovir PCR NOT DETECTED Nasal Influenza B PCR NOT DETECTED Nasal Influenza A PCR NOT DETECTED Nasal Parainfluen 1 PCR NOT DETECTED Nasal Parainfluen 2 PCR NOT DETECTED Nasal Parainfluen 3 PCR NOT DETECTED Nasal Parainfluen 4 PCR NOT DETECTED Nasal RSV (PCR) NOT DETECTED Nasal B.pertussis DNA PCR NOT DETECTED Nasal C.pneumoniae (PCR) NOT DETECTED Grover Human Metapneumo PCR NOT DETECTED Nasal M.pneumoniae (PCR) NOT DETECTED Nasal SARS-CoV-2 (PCR) NOT DETECTED Salicylates < 6.0 Urine Opiates Screen Ur Oxycodone Screen Urine Methadone Screen Ur Propoxyphene Screen Acetaminophen < 10 L Ur Barbiturates Screen Ur Tricyclics Screen Ur Phencyclidine Scrn Ur Amphetamine Screen U Methamphetamines Scrn U Benzodiazepines Scrn Urine Cocaine Screen U Cannabinoids Screen Ethyl Alcohol < 5.0 04/21/22 21:54 WBC RBC Hgb Hct MCV MCH MCHC RDW Plt Count MPV Neut # (Auto) Lymph # (Auto) Ballard # (Auto) Eos # (Auto) Baso # (Auto) Absolute Nucleated RBC Nucleated RBC % Sodium 124 L Potassium 3.9 Chloride 91 L Carbon Dioxide 23 Anion Gap 10.0 BUN 9 Creatinine 0.6 Estimated GFR (MDRD) 96 Glucose 131 H POC Whole Bld Glucose Calcium 8.0 L Total Bilirubin AST ALT Alkaline Phosphatase Ammonia Total Protein Albumin Globulin Albumin/Globulin Ratio Lipase TSH Urine Color Urine Clarity Urine pH Ur Specific [place] Urine Protein Urine Glucose (UA) Urine Ketones Urine Occult Blood Urine Nitrite Urine Bilirubin Urine Urobilinogen Ur Leukocyte Esterase Ur Microscopic Review Urine Culture Comments Nasal Adenovirus (PCR) Nasal B. parapertussis DNA (PCR) Nasal Coronavir 229E PCR Nasal Coronavir HKU1 PCR Nasal Coronavir NL63 PCR Nasal Coronavir OC43 PCR Nasal Enterovir/Rhinovir PCR Nasal Influenza B PCR Nasal Influenza A PCR Nasal Parainfluen 1 PCR Nasal Parainfluen 2 PCR Nasal Parainfluen 3 PCR Nasal Parainfluen 4 PCR Nasal RSV (PCR) Nasal B.pertussis DNA PCR Nasal C.pneumoniae (PCR) [place] Human Metapneumo PCR Nasal M.pneumoniae (PCR) Nasal SARS-CoV-2 (PCR) Salicylates Urine Opiates Screen Ur Oxycodone Screen Urine Methadone Screen Ur Propoxyphene Screen Acetaminophen Ur Barbiturates Screen Ur Tricyclics Screen Ur Phencyclidine Scrn Ur Amphetamine Screen U Methamphetamines Scrn U Benzodiazepines Scrn Urine Cocaine Screen U Cannabinoids Screen Ethyl Alcohol - Rads (name of study) Head CT Radiology: Final report received, See rad report Brain MRI Radiology: Final report received, See rad report PD Medical Decision Making - ED course Complexity details: reviewed results, re-evaluated patient, considered differential, d/w family, 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 Unclear etiology. She has no acute findings on CBC. Chemistry shows hyponatremia, sodium 126. She does have chronically low sodium, 125-128 on prior lab draws. Her glucose is 144. Her urinalysis does not show any acute abnormalities or signs of infection. Her head CT and brain MRI do not show any acute abnormalities. There is an evolving left sided infarct on MRI. Chest x-ray is without acute pulmonary process. Continues to have altered mental status. Agitation improved with Haldol. No history of dementia that the is aware of. As she is acutely altered and continues to appear delirious, will admit for further care. Patient does have elevated blood pressures here, but not anything significantly above her prior visits. Her urine toxicology screen, TSH and blood toxicology screen did not show any acute abnormalities. Her repeat BMP does show a sodium that is still around 124. Her ammonia is normal. Departure - Departure Disposition: ED Place in Observation Clinical Impression: Confusion, Encephalopathy acute, Hyponatremia Altered mental status Qualifiers: Altered mental status type: delirium Qualified Code(s): R41.0 - Disorientation, unspecified Condition: Stable
--- NOTE | 2022-04-21 15:58 | XRAY Report ---
PROCEDURE: Chest 1 View X-Ray INDICATIONS: cough TECHNIQUE: One view of the chest was acquired. COMPARISON: None. FINDINGS: Surgical changes and devices: None. Lungs and pleura: No pleural effusions or pneumothorax. Lungs are clear. Mediastinum: Mediastinal contours appear normal. Heart size is normal. Bones and chest wall: No suspicious bony lesions. Overlying soft tissues appear unremarkable. IMPRESSION: No acute cardiopulmonary process. Reviewed by: Jose Rodney on 04/21/2022 3:57 PM [facility] Approved by: Jose Rodney on 04/21/2022 3:57 PM [facility] Station ID: [id number]
[2022-04-21 16:11] LABS: BILIRUBIN,URINE NEGATIVE (NEGATIVE); GLUCOSE, URINE (UA) NEGATIVE (NEGATIVE); KETONES,URINE (UA) NEGATIVE (NEGATIVE); LEUKOCYTE ESTERASE, URINE NEGATIVE (NEGATIVE); NITRITE,URINE NEGATIVE (NEGATIVE); OCCULT BLOOD,URINE NEGATIVE (NEGATIVE); PROTEIN,URINE NEGATIVE (NEGATIVE); UROBILINOGEN,URINE 0.2 (NORMAL) E.U./dL (NORMAL)
[2022-04-21 16:12] LABS: CLARITY,URINE CLEAR (CLEAR)
[2022-04-21] MEDS ORDERED: HALOPERIDOL 5 MG/ML VIAL IVP STA ×2 (17:17→18:20)
--- NOTE | 2022-04-21 21:17 | MRI Report ---
PROCEDURE: BRAIN WO INDICATIONS: confusion TECHNIQUE: Noncontrast sagittal T1, axial T2 blade, axial T1 blade and diffusion imaging was attempted. Patient did not cooperate with the remainder of the scan. COMPARISON: 02/28/2022 FINDINGS: Image quality: Suboptimal due to motion artifact and incomplete sequences.. Age-appropriate cerebral cortical volume. There is no restricted diffusion to suggest acute ischemia. There is encephalomalacia with surrounding T2 hyperintensity in the left posterior occipital region as seen on prior study there is new central liquefaction. No mass, mass effect, or midline shift. The ventricles are symmetric and normal in size and position. There are no extra-axial fluid collections. There is mild T2 hyperintensity in the periventricular w aurea matter suggesting chronic microvascular ischemic change Extracranial soft tissues, orbits, and paranasal sinuses appear normal. IMPRESSION: 1. Limited exam secondary to patient condition and motion artifact. 2. No MR evidence of acute process. 3. Evolving left parietal lobe infarct. Reviewed by: Jazlyn Park MD on 04/21/2022 9:16 PM PST Approved by: Jazlyn Park MD on 04/21/2022 9:16 PM PST Station ID: [id number]
[2022-04-21 21:20] LABS: MUDS CUTOFF CONCENTRATIONS CUTOFF CONC BELOW:
[2022-04-21 21:34] LABS: AMPHETAMINE SCREEN,URINE NEGATIVE (NEGATIVE); BARBITURATE SCREEN,UR NEGATIVE (NEGATIVE); BENZODIAZEPINES SCREEN, URINE NEGATIVE (NEGATIVE); COCAINE SCREEN URINE NEGATIVE (NEGATIVE); METHADONE SCREEN, URINE NEGATIVE (NEGATIVE); METHAMPHETAMINES SCREEN, URINE NEGATIVE (NEGATIVE); OPIATE SCREEN, URINE NEGATIVE (NEGATIVE); OXYCODONE SCREEN, URINE NEGATIVE (NEGATIVE); PROPOXYPHENE SCREEN, URINE NEGATIVE (NEGATIVE); THC CANNABINOID SCREEN, URINE NEGATIVE (NEGATIVE); TRICYCLIC ANTIDEPRESSANT,URINE NEGATIVE (NEGATIVE)
[2022-04-21 21:38] LABS: ACETAMINOPHEN < 10 ug/mL (10-30); ETOH - ETHANOL < 5.0 mg/dL; SALICYLATE < 6.0 mg/dL
--- NOTE | 2022-04-21 21:51 | HISTORY & PHYSICAL EXAMINATION ---
Chief Complaint - Chief Complaint Chief Complaint: confucion History of Present Illness - History of Present Illness HPI Comment/Other: 81 y/o F with confusion for 1 day, no history of trauma. Pt at times was also agitated at times. per has had some episodes similar before since her stroke 5 moths ago but not this severe. no loc no fever or dysuria pt is sleepy but arousble interview with present History - Past Medical History Cardiovascular: reports: Hypertension, High cholesterol Neuro: reports: CVA Endocrine/Autoimmune: reports: Type 2 diabetes GI: reports: GERD, Chronic diarrhea HEENT: reports: None Psych: reports: Anxiety, Panic attacks MRSA Hx?: No Meds/Allgy - Home Medications Home Medications: Ambulatory Orders Medication Instructions Recorded Confirmed Ascorbic Acid [Vitamin C] 500 mg PO DAILY 03/12/16 09/05/21 Aspirin [Aspir-Low] 81 mg PO DAILY 03/12/16 09/05/21 Cyanocobalamin (Vitamin B-12) 500 mcg PO BID 03/12/16 09/05/21 [Vitamin B-12] Metformin HCl 500 mg PO BIDWM 03/12/16 09/05/21 Multivit/Folic Acid/Vit K1 1 each PO DAILY 03/12/16 09/05/21 [One-A-Day Women's 50 Plus Tab] Mylanta 1 tbs PO TID 03/12/16 09/05/21 Simvastatin 60 mg PO QPM 03/12/16 09/05/21 glipiZIDE [Glipizide] 5 mg PO BIDWM 03/12/16 09/05/21 Benzonatate [Tessalon] 200 mg PO QID PRN #20 cap 01/14/22 - Allergies Allergies/Adverse Reactions: Allergies Allergy/AdvReac Type Severity Reaction Status Date / Time NSAIDS (Non-Steroidal Allergy Respiratory Verified 04/21/22 11:59 Anti-Inflamma Review of Systems - Constitutional Constitutional: reports: Fatigue (negatie except what mentioned), Weakness Exam - Vital Signs Vital Signs: Vital Signs x48h Temp Pulse Resp BP Pulse Ox 04/21/22 21:07 77 14 180/77 H 97 04/21/22 19:46 37.3 C 83 16 191/72 H 97 04/21/22 17:44 84 16 178/82 H 100 04/21/22 16:07 88 17 100 - Physical Exam General Appearance: positive: No acute distress, Lethargic Respiratory: positive: No respiratory distress Cardiovascular: positive: Regular rate & rhythm Peripheral Pulses: positive: 2+ Abdomen: positive: Non-tender Extremities: positive: Non-tender Neurologic/Psychiatric: positive: Motor nml (pt slow to respond and prefers pt rests), Sensation nml Conclusion/Plan - Lab Results Fish Bones: 04/21/22 12:26 04/21/22 12:26 - Other Other Results/Comments: 81 y/o F: # AM: work up negative so acute including ct scan , MRI, u/a and metabolic panel. Pt has chronic hyponatremia. will monitor with neurochekcs, check tsh, ammonia and toxicology. denies heavy alcohol drinking. tele. #DM SSI #HTN cotinue home mes #recent stroke continue home meds # full code discussed with # heparin sq for dvt prophylaxis
[2022-04-21] MEDS ORDERED: SODIUM CHLORIDE FLUSH 0.9% 10 ML SYRINGE IVP PRN (21:57)
[2022-04-21] MEDS ORDERED: ONDANSETRON ODT 4 MG TABLET TL PRN (21:57)
[2022-04-21 22:06] LABS: CREATININE 0.6 mg/dL (0.4-1.0); POTASSIUM 3.9 mmol/L (3.5-5.0)
[2022-04-21 22:13] LABS: B. PARAPERTUSSIS- RESP PCR PAN NOT DETECTED; B. PERTUSSIS- RESP PCR PANEL NOT DETECTED; C. PNEUMONIAE- RESP PCR PANEL NOT DETECTED; CORONAVIRUS 229E-RESP PCR NOT DETECTED; CORONAVIRUS HKU1-RESP PCR NOT DETECTED; CORONAVIRUS NL63-RESP PCR NOT DETECTED; CORONAVIRUS OC43-RESP PCR NOT DETECTED; HUMAN METAPNEUMOVIRUS NOT DETECTED; INFLUENZA A- RESP PCR PANEL NOT DETECTED; INFLUENZA B - RESP PCR PANEL NOT DETECTED; M. PNEUMONIAE- RESP PCR PANEL NOT DETECTED; PARAINFLUENZA VIRUS 1 NOT DETECTED; PARAINFLUENZA VIRUS 2 NOT DETECTED; PARAINFLUENZA VIRUS 3 NOT DETECTED; PARAINFLUENZA VIRUS 4 NOT DETECTED; RHINOVIRUS/ENTEROVIRUS NOT DETECTED; RSV- RESP PCR PANEL NOT DETECTED; SARS-CoV-2 -RESP PCR PANEL NOT DETECTED
[2022-04-21] MEDS ORDERED: BENZONATATE 100 MG CAPSULE PO PRN (23:29)
[2022-04-21] MEDS: SODIUM CHLORIDE 0.9% 1,000 ML IV SCH (23:47)
[2022-04-21] MEDS: SODIUM CHLORIDE FLUSH 0.9% 10 ML SYRINGE IVP SCH (23:47)
[2022-04-22] MEDS ORDERED: INSULIN REGULAR HUMAN 300 UNIT/3 ML VIAL SUBQ SCH
[2022-04-22] MEDS: INSULIN LISPRO 300 UNIT/3 ML PEN SUBQ SCH ×4 (08:50→21:13)
[2022-04-22] MEDS: MULTIVITAMIN W/MINERALS TABLET PO SCH ×2 (08:51→08:55)
[2022-04-22 09:47] LABS: CREATININE 0.6 mg/dL (0.4-1.0); POTASSIUM 3.9 mmol/L (3.5-5.0)
[2022-04-22] MEDS: SODIUM CHLORIDE FLUSH 0.9% 10 ML SYRINGE IVP SCH ×2 (10:32→18:07)
--- NOTE | 2022-04-22 12:00 | PROVIDER PROGRESS NOTE ---
Assessment/Plan - Problem List (1) Confusion Assessment/Plan: Her confusion is worse and her somnolence is quite remarkable today, actually new since yesterday, the said. I reviewed her records from a neurology visit 03/30/22 were reviewed and her stroke caused cognitive deficit, not a motor deficit. Etiology appears to be the stroke or from severe hyponatremia which is worsening, or a combination of both. I called the patient's neurologist, Dr. Tg Rosenthal, neurologist at [facility] ([phone]) and we discussed her current condition. Dr. Rosenthal thinks this could also be confusion from a new infection since the had reported there were flushed cheeks and feelings of chills alternating with being overheated. Dr. Rosenthal also recommended work-up for infection with an LP. Dr Rosenthal agreed with our management of the hyponatremia. Dr Rosenthal also advised a CTA head and neck. Plan: Since the patient is on Plavix, will determine when her last dose was, hold it, ask for ED provider to perform an LP when it is safe to do so (probably tomorrow or Wed) Continue neurochecks every 4 hours Continue treating the underlying hyponatremia (transferring to the ICU, see below). PT and OT evaluations were ordered but will be canceled since she is currently more confused, more somnolent and unable to follow commands. (2) Hyponatremia Assessment/Plan: Patient has a "history of low sodium", unknown for what period of time, or what was the cause. said she was never treated with salt tablets but she did salt her food freely. She was not drinkng excessive free water or have potomania, like a tea and toast diet. She had a stroke 5 months ago. No history of subarachnoid hemorrhage, which could then have caused "central salt wasting". She is not hyperglycemic which can cause pseudohyponatremia. Serum sodium level has been hyponatremic since her admission labs and she appears to have hypovolemic hyponatremia Plan: See below for plan in the work-up and treatment (3) SIADH (syndrome of inappropriate ADH production) Assessment/Plan: Per record, the patient has had a sodium level of 124-128 in the past. She presented with a sodium of 126, and her sodium has decreased to 124 and is 119 this a.m., despite being on isotonic NS since admission. Therefore a urine sodium level was sent off today and it is very high at 142. This indicates that she is not able to retain salt, or is retaining free water, consistent with SIADH. Her TSH is not high, ruling out hypothyroidism as the cause of SIADH. Plan: In order to complete the work-up for causes of SIADH and possibly Cerebral Salt Wasting, we will check morning cortisol level to see if she has adrenal insufficiency. We will transfer the patient to the ICU and start hypertonic saline. Monitor serum sodium every 8-12 h. Goal is a correction of 6 to 8 mEq of Na in 24 hours (4) Hx of completed stroke Assessment/Plan: The describes that the patient had new onset of confusion in early Jan 2022, brought her to the ER, testing showed she had parainfluenza, no brain imaging was done. She was then seen by her PCP sometime later, no brain imaging was done. She was then seen by her Railroad Watchman DR Da Silva, and he did feel that she had sx suspicious for stroke and a brain MRI was ordered and done which by then was 2 to 3 months months out from the beginning of symptoms. It did show a stroke. She then saw a neurologist in March 2022. 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 She was ordered to get PT for balance and walking, Speech Therapy for cognitive therapy. The says that the patient refused to participate to do these. She has been able to function independently such as walk, feed herself and toilet herself. The brought in the office note from March [address] Tg Rosenthal and the impression was cognitive impairment after stroke. I reviewed these pages. Dr Rosenthal wanted a ZioPatch to check for Afib. The told me that was done and no A-fib was seen despite the patient having "palpitations". CT head done 3/7 last night in the ED was read as having "Left parietal- occipital encephalomalacia indicating prior infarct." MRI head done 3/7 last night in the ED was read as having "No acute ischemia. Encephalomalacia with surrounding T2 hyperintensity in the left posterior occipital region, seen on prior study but there is new central liquefaction. Impression: Evolving left parietal lobe infarct." When I spoke to her neurologist, Dr. Tg oRsenthal, and read her these findings, Dr. Rosenthal felt they were probably late effects of the same old stroke and not a new or more recent stroke in evolution, but recommended that I speak to Radiology to define what that meant. I contacted the Radiology reader, Dr Jazlyn Park and discussed those findings of "liquifaction". Dr Park said that is the normal progression of an old stroke, which will eventually turn into a "hole" where the stroke damaged the brain. Dr Rosenthal today advised she have a CTA head and neck. Plan: We will continue her medications once her med list is reconciled According to the office visit note from 1 mo ago, her neurologist ordered an Echocardiogram to be done as an outpatient, and this has not yet been done. Will obtain an Echocardiogram with bubble study now. This may change her medical management if a clot is found, for example. Many of her meds will have to be changed to IV since she is not swallowing well. Speech Therapy will be ordered. Plavix will be on hold until after the CTA is done and until after an LP by ED provider is finished. PT and OT evaluations were ordered but will be put on hold since she is currently more confused, more somnolent and unable to follow commands. *I reexamined the patient at 1730 after she had been in the ICU and getting IV hypertonic saline for about 2 hours and serum Na had increased from 119 to 123, and she was more communicative, had more energy to complete entire sentences and was following some commands, but not all. The nurse noticed that she had left sided neglect. We will plan to reorder PT and OT starting tomorrow. Critical care time spent: 45 minutes (reviewing outside office visit notes, contacting Dr. Rosenthal, contacting Dr. Park, follow-up exam on the patient, updating the at bedside) (5) DM type 2 (diabetes mellitus, type 2) Assessment/Plan: This patient was on glipizide and metformin at home, no insulin. Plan: A carb-controlled diet has been ordered but this needs to be de-escalated to a pured diet and she needs to be fed. Continue with hypoglycemia protocol, fingerstick checks, sliding scale insulin coverage Await her A1c result ST eval ordered. - Current Meds Current Meds: Current Medications Generic Name Dose Route Start Last Admin Trade Name Freq PRN Reason Stop Dose Admin Sodium Chloride 1,000 mls @ 100 mls/hr 04/21/22 22:00 04/22/22 10:00 Normal Saline 0.9% IV 100 mls/hr .Q10H LISHA Infusion Insulin Human Lispro 0 unit 04/22/22 08:00 04/22/22 08:50 Insulin Lispro 300 Unit/3 Ml Pen SUBQ 1 unit 0800,1200,1700,2100 LISHA Administration Protocol Sodium Chloride 10 ml 04/22/22 01:00 04/22/22 10:32 Sodium Chloride Flush 0.9% 10 Ml Syringe IVP 10 ml 0100,0900,1700 LISHA Administration - Lab Result Fish Bone Diagrams: 04/21/22 12:26 04/22/22 16:59 - Additional Planning My Orders: My Active Orders 04/22/22 Evaluate and Treat OT [OT] Routine Evaluate and Treat PT [PT] Routine 04/22/22 11:00 Multivitamin W/Minerals Liq [Centrum] 15 ml PO DAILY 04/22/22 17:00 SODIUM [CHEM] Q12H 04/23/22 05:00 BMP - BASIC METABOLIC PANEL [CHEM] DAILYLAB CBC - COMP BLD CT W/AUTO DIFF [HEME] DAILYLAB SODIUM [CHEM] Q12H 04/23/22 08:00 CORTISOL,AM [IAI] Routine 04/23/22 17:00 SODIUM [CHEM] Q12H 04/24/22 05:00 BMP - BASIC METABOLIC PANEL [CHEM] DAILYLAB SODIUM [CHEM] Q12H 04/24/22 17:00 SODIUM [CHEM] Q12H 04/25/22 05:00 BMP - BASIC METABOLIC PANEL [CHEM] DAILYLAB Subjective - Subjective Patient Reports: Other (She is mostly asleep, she awoke when her and I spoke to her, followed with her eyes, answered with a whisper, does not know where she is or "what she wants" or what she was doing (when she was uncovering her legs, removing the blanket)) Nursing Reports: Other (RN reported difficulty swallowing pills, since she could not follow directions, but she was able to eat a soft diet) Objective Vital Signs: Vital Signs - 24 hr 04/21/22 04/21/22 04/21/22 16:07 17:44 19:46 Temperature 37.3 C Heart Rate 88 84 83 Heart Rate [ Monitoring electrodes] Respiratory 17 16 16 Rate Blood Pressure 178/82 H 191/72 H Blood Pressure [Right Brachial artery] O2 Saturation 100 100 97 04/21/22 04/21/22 04/22/22 21:07 23:11 06:52 Temperature 37.4 C 37.1 C Heart Rate 77 Heart Rate [ 82 90 Monitoring electrodes] Respiratory 14 14 16 Rate Blood Pressure 180/77 H Blood Pressure 145/79 H [Right Brachial artery] O2 Saturation 97 96 95 04/22/22 04/22/22 07:18 11:10 Temperature 37.4 C 37.8 C Heart Rate Heart Rate [ 86 91 Monitoring electrodes] Respiratory 16 18 Rate Blood Pressure Blood Pressure 155/65 H 160/63 H [Right Brachial artery] O2 Saturation 96 96 Oxygen O2 Source Room air I&O (Last 24 Hrs): Intake and Output Totals x24h 04/20/22 04/21/22 04/22/22 23:59 23:59 23:59 Intake Total 1000 1000 Output Total 350 2250 Balance 650 -1250 General: No acute distress, Other (Lethargic) HEENT: Other (Flushed cheeks. Dry oral mucosa) Neuro: Disoriented, Non Focal, Other (Slow movements of head and extremities, not able to follow cues, speech is whispering and short sentences, no tremor) Cardiovascular: Regular rate, No murmurs Respiratory: No respiratory distress, Breath sounds nml Abdomen: Normal bowel sounds, Soft, No tenderness Extremities: No clubbing, No edema, No tenderness/swelling Skin: No rashes - Results Results: Laboratory Results WBC 8.3 x10^3/uL (4.8-10.8) 04/21/22 12:26 RBC 3.56 10^6/uL (4.20-5.40) L 04/21/22 12:26 Hgb 12.2 g/dL (12.0-16.0) 04/21/22 12:26 Hct 34.4 % (37.0-47.0) L 04/21/22 12:26 MCV 96.6 fL (81.0-99.0) 04/21/22 12:26 MCH 34.3 pg (27.0-31.0) H 04/21/22 12:26 MCHC 35.5 g/dL (32.0-36.0) 04/21/22 12: RDW 13.1 % (12.0-15.0) 04/21/22 12: Plt Count 201 10^3/uL (130-450) 04/21/22 12: MPV 9.1 fL (7.9-10.8) 04/21/22 12: Neut # (Auto) 6.1 10^3/uL (1.5-6.6) 04/21/22 12: Lymph # (Auto) 1.2 10^3/uL (1.5-3.5) L 04/21/22 12: [place] # (Auto) 0.8 10^3/uL (0.0-1.0) 04/21/22 12: Eos # (Auto) 0.2 10^3/uL (0.0-0.7) 04/21/22 12: Baso # (Auto) 0.1 10^3/uL (0.0-0.1) 04/21/22 12: Absolute Nucleated RBC 0.00 x10^3/uL 04/21/22 12: Nucleated RBC % 0.0 /100WBC 04/21/22 12: Sodium 119 mmol/L (135-145) L* 04/22/22 09: Potassium 3.9 mmol/L (3.5-5.0) 04/22/22 09: Chloride 87 mmol/L (101-111) L 04/22/22 09: Carbon Dioxide 21 mmol/L (21-32) 04/22/22 09: Anion Gap 11.0 (6-13) 04/22/22 09:23 BUN 7 mg/dL (6-20) 04/22/22 09:23 Creatinine 0.6 mg/dL (0.4-1.0) 04/22/22 09: Estimated GFR (MDRD) 96 (>89) 04/22/22 09:23 Glucose 260 mg/dL (70-100) H 04/22/22 09:23 POC Whole Bld Glucose 236 mg/dL (70 - 100) H 04/22/22 11:03 Calcium 8.0 mg/dL (8.5-10.3) L 04/22/22 09:23 Total Bilirubin 0.6 mg/dL (0.2-1.0) 04/21/22 12:26 AST 18 IU/L (10-42) 04/21/22 12:26 ALT 15 IU/L (10-60) 04/21/22 12:26 Alkaline Phosphatase 52 IU/L (42-121) 04/21/22 12:26 Ammonia 12.8 umol/L (7-35) 04/21/22 21:54 Total Protein 6.7 g/dL (6.7-8.2) 04/21/22 12:26 Albumin 3.5 g/dL (3.2-5.5) 04/21/22 12:26 Globulin 3.2 g/dL (2.1-4.2) 04/21/22 12: Albumin/Globulin Ratio 1.1 (1.0-2.2) 04/21/22 12:26 Lipase 36 U/L (22-51) 04/21/22 12:26 TSH 0.62 uIU/mL (0.34-5.60) 04/21/22 21:15 Urine Color YELLOW 04/21/22 16:02 Urine Clarity CLEAR (CLEAR) 04/21/22 16:02 Urine pH 8.0 PH (5.0-7.5) H 04/21/22 16:02 Ur Specific [place] 1.015 (1.002-1.030) 04/21/22 16:02 Urine Protein NEGATIVE mg/dL (NEGATIVE) 04/21/22 16:02 Urine Glucose (UA) NEGATIVE mg/dL (NEGATIVE) 04/21/22 16:02 Urine Ketones NEGATIVE mg/dL (NEGATIVE) 04/21/22 16:02 Urine Occult Blood NEGATIVE (NEGATIVE) 04/21/22 16:02 Urine Nitrite NEGATIVE (NEGATIVE) 04/21/22 16:02 Urine Bilirubin NEGATIVE (NEGATIVE) 04/21/22 16:02 Urine Urobilinogen 0.2 (NORMAL) E.U./dL (NORMAL) 04/21/22 16:02 Ur Leukocyte Esterase NEGATIVE (NEGATIVE) 04/21/22 16:02 Ur Microscopic Review NOT INDICATED 04/21/22 16:02 Urine Culture Comments NOT INDICATED 04/21/22 16:02 Urine Sodium 142.0 mmol/L 04/22/22 10:16 Nasal Adenovirus (PCR) NOT DETECTED 04/21/22 21:15 Nasal B. parapertussis DNA (PCR) NOT DETECTED 04/21/22 21:15 Nasal Coronavir 229E PCR NOT DETECTED 04/21/22 21:15 Nasal Coronavir HKU1 PCR NOT DETECTED 04/21/22 21:15 Nasal Coronavir NL63 PCR NOT DETECTED 04/21/22 21:15 Nasal Coronavir OC43 PCR NOT DETECTED 04/21/22 21:15 Nasal Enterovir/Rhinovir PCR NOT DETECTED 04/21/22 21:15 Nasal Influenza B PCR NOT DETECTED 04/21/22 21:15 Nasal Influenza A PCR NOT DETECTED 04/21/22 21:15 Nasal Parainfluen 1 PCR NOT DETECTED 04/21/22 21:15 Nasal Parainfluen 2 PCR NOT DETECTED 04/21/22 21:15 Nasal Parainfluen 3 PCR NOT DETECTED 04/21/22 21:15 Nasal Parainfluen 4 PCR NOT DETECTED 04/21/22 21:15 Nasal RSV (PCR) NOT DETECTED 04/21/22 21:15 Nasal B.pertussis DNA PCR NOT DETECTED 04/21/22 21:15 Nasal C.pneumoniae (PCR) NOT DETECTED 04/21/22 21:15 [place] Human Metapneumo PCR NOT DETECTED 04/21/22 21:15 Nasal M.pneumoniae (PCR) NOT DETECTED 04/21/22 21:15 Nasal SARS-CoV-2 (PCR) NOT DETECTED 04/21/22 21:15 Salicylates < 6.0 mg/dL 04/21/22 21:15 Urine Opiates Screen NEGATIVE (NEGATIVE) 04/21/22 16:02 Ur Oxycodone Screen NEGATIVE (NEGATIVE) 04/21/22 16:02 Urine Methadone Screen NEGATIVE (NEGATIVE) 04/21/22 16:02 Ur Propoxyphene Screen NEGATIVE (NEGATIVE) 04/21/22 16:02 Acetaminophen < 10 ug/mL (10-30) L 04/21/22 21:15 Ur Barbiturates Screen NEGATIVE (NEGATIVE) 04/21/22 16:02 Ur Tricyclics Screen NEGATIVE (NEGATIVE) 04/21/22 16:02 Ur Phencyclidine Scrn NEGATIVE (NEGATIVE) 04/21/22 16:02 Ur Amphetamine Screen NEGATIVE (NEGATIVE) 04/21/22 16:02 U Methamphetamines Scrn NEGATIVE (NEGATIVE) 03/07/23 16:02 U Benzodiazepines Scrn NEGATIVE (NEGATIVE) 04/21/22 16:02 Urine Cocaine Screen NEGATIVE (NEGATIVE) 04/21/22 16:02 U Cannabinoids Screen NEGATIVE (NEGATIVE) 04/21/22 16:02 Ethyl Alcohol < 5.0 mg/dL 04/21/22 21:15 - Procedures Procedures: Procedures EXCISION OF DUODENUM, ENDO, DIAGN (08/24/19) EXCISION OF ESOPHAGUS, ENDO, DIAGN (08/24/19) EXCISION OF STOMACH, ENDO, DIAGN (08/24/19)
[2022-04-22] MEDS ORDERED: SODIUM CHLORIDE 3% HYPERTONIC 500 ML IV SCH (13:00)
[2022-04-22 13:26] LABS: INR 1.1 (0.8-1.2); PT - PROTHROMBIN TIME 12.7 secs (9.9-12.6)
[2022-04-22] MEDS: ASPIRIN EC 81 MG TABLET PO SCH (13:53)
[2022-04-22] MEDS: ASCORBIC ACID 500 MG TABLET PO SCH (13:53)
[2022-04-22] MEDS: MULTIVITAMIN W/IRON, MINERALS 15 ML PO SCH (14:03)
[2022-04-22] MEDS: SODIUM CHLORIDE 0.9% 1,000 ML IV SCH (15:22)
--- NOTE | 2022-04-22 16:44 | PHARMACY PROGRESS NOTE ---
- Best Possible Medication History Admit Date and Time: 04/21/22 1320 Processed by: Pharmacy Medication History completed: Yes Patient Interview: Pt unable to participate Secondary Source(s): Spouse/Significant other, Physician records (03/30/22 PHY SICIAN RECORDS PROVIDED BY CLIENT SHOWS METFORMIN 500MG, 1 TAB BID BUT PT STATES HE HAS BEEN GIVING PT 2 TABS (1000MG) BID.), Insurance records As the person ultimately responsible for medication therapy, providers are able to order a medication from an existing home medication list in [facility] via the "Reconcile Routine" prior to Confirmation of that medication by accounting support specialist. Such practice is discouraged except when the physician, in their clinical judgment, deems that a medical need exists for a medication without regard to previous use.
[2022-04-22] MEDS: SODIUM CHLORIDE 3% HYPERTONIC 500 ML IV SCH (17:58)
[2022-04-22] MEDS: ATORVASTATIN 10 MG TABLET PO SCH (20:23)
[2022-04-22] MEDS: NYSTATIN POWDER 15 GM TOP SCH (21:17)
[2022-04-23] MEDS: SODIUM CHLORIDE FLUSH 0.9% 10 ML SYRINGE IVP SCH ×3 (00:46→16:15)
[2022-04-23] MEDS: SODIUM CHLORIDE 3% HYPERTONIC 500 ML IV SCH (00:47)
[2022-04-23] MEDS ORDERED: SODIUM CHLORIDE 0.9% 1,000 ML IV ONE (04:19)
[2022-04-23 06:24] LABS: BASOPHILS % (AUTO) 0.6 %; EOSINOPHILS % (AUTO) 0.6 %; HCT - HEMATOCRIT 33.3 % (37.0-47.0); HGB - HEMOGLOBIN 11.9 g/dL (12.0-16.0); LYMPHOCYTES # (AUTO) 1.2 10^3/uL (1.5-3.5); LYMPHOCYTES % (AUTO) 17.7 %; MEAN CORPUSCULAR HEMOGLOBIN 33.7 pg (27.0-31.0); MEAN CORPUSCULAR HGB CONC 35.7 g/dL (32.0-36.0); MEAN CORPUSCULAR VOLUME 94.3 fL (81.0-99.0); MEAN PLATELET VOLUME 9.4 fL (7.9-10.8); MONOCYTES # (AUTO) 1.2 10^3/uL (0.0-1.0); MONOCYTES % (AUTO) 17.9 %; NEUTROPHILS # (AUTO) 4.2 10^3/uL (1.5-6.6); NEUTROPHILS % (AUTO) 62.9 %; PLT - PLATELET COUNT 202 10^3/uL (130-450); RED BLOOD COUNT 3.53 10^6/uL (4.20-5.40); WHITE BLOOD COUNT 6.6 x10^3/uL (4.8-10.8)
[2022-04-23 06:36] LABS: CALCIUM 7.9 mg/dL (8.5-10.3); CREATININE 0.5 mg/dL (0.4-1.0); POTASSIUM 3.3 mmol/L (3.5-5.0)
[2022-04-23] MEDS: SODIUM CHLORIDE 0.9% 1,000 ML IV SCH ×3 (06:51→23:26)
[2022-04-23] MEDS: INSULIN LISPRO 300 UNIT/3 ML PEN SUBQ SCH ×4 (08:27→20:55)
[2022-04-23] MEDS: ASCORBIC ACID 500 MG TABLET PO SCH (08:28)
[2022-04-23] MEDS: ASPIRIN EC 81 MG TABLET PO SCH (08:28)
[2022-04-23] MEDS: MULTIVITAMIN W/IRON, MINERALS 15 ML PO SCH (08:28)
[2022-04-23] MEDS: NYSTATIN POWDER 15 GM TOP SCH ×2 (08:31→20:54)
--- NOTE | 2022-04-23 11:12 | PROVIDER PROGRESS NOTE ---
Subjective - Subjective Pt reports feeling: Improved (She does not know she is improved because she cannot remember how she was yesterday however nursing and provider can see she is much more alert, awake and communicative. She was able to participate with PT, lifted her walker up in the air.) Objective - Vital Signs/Intake & Output Vital Signs: Vital Signs Temp Pulse Resp BP Pulse Ox 04/23/22 10:00 101 H 17 162/92 H 97 04/23/22 09:00 97 18 164/76 H 98 04/23/22 08:00 37.0 C 90 14 151/67 H 96 Intake & Output: Intake & Output 04/20/22 04/21/22 04/22/22 04/23/22 23:59 23:59 23:59 23:59 Intake Total 1000 6759.854 6301.333 Output Total 350 3887 885 Balance 650 -2086.000 358.333 - Objective General Appearance: positive: No acute distress, Alert Eyes Bilateral: positive: Normal inspection, No lid inflammation ENT: positive: ENT inspection nml, No signs of dehydration, Other (Cheeks flushed, less than yesterday) Neck: positive: Nml inspection, No JVD Respiratory: positive: No respiratory distress, Breath sounds nml Cardiovascular: positive: Regular rate & rhythm, No murmur Abdomen: positive: Non-tender, Nml bowel sounds, No distention Skin: positive: Warm, Dry, Other (Face flushed and other red patches (consistent with rosacea)) Neurologic/Psychiatric: positive: Motor nml, Disoriented to person, Disoriented to time, Other (Very poor short term memory and cannot follow directions. Speech is normal.) - Lab Results Fish Bones: 04/23/22 05:36 04/23/22 05:36 Other Labs: Lab Results x24hrs 04/23/22 04/23/22 04/23/22 Range/Units 08:23 07:52 05:36 WBC (4.8-10.8) x10^3/uL RBC (4.20-5.40) 10^6/uL Hgb (12.0-16.0) g/dL Hct (37.0-47.0) % MCV (81.0-99.0) fL MCH (27.0-31.0) pg MCHC (32.0-36.0) g/dL RDW (12.0-15.0) % Plt Count (130-450) 10^3/uL MPV (7.9-10.8) fL Neut # (Auto) (1.5-6.6) 10^3/uL Lymph # (Auto) (1.5-3.5) 10^3/uL Warren # (Auto) (0.0-1.0) 10^3/uL Eos # (Auto) (0.0-0.7) 10^3/uL Baso # (Auto) (0.0-0.1) 10^3/uL Absolute Nucleated RBC x10^3/uL Nucleated RBC % /100WBC PT (9.9-12.6) secs INR (0.8-1.2) Sodium 129 L (135-145) mmol/L Potassium 3.3 L (3.5-5.0) mmol/L Chloride 98 L (101-111) mmol/L Carbon Dioxide 22 (21-32) mmol/L Anion Gap 9.0 (6-13) BUN 7 (6-20) mg/dL Creatinine 0.5 (0.4-1.0) mg/dL Estimated GFR (MDRD) 118 (>89) Glucose 133 H (70-100) mg/dL POC Whole Bld Glucose 135 H (70 - 100) mg/dL Calcium 7.9 L (8.5-10.3) mg/dL Cortisol AM Sample 11.1 ug/dL Nasal Screen MRSA (PCR) (NEGATIVE) 04/23/22 04/22/22 04/22/22 Range/Units 05:36 20:57 16:59 WBC 6.6 (4.8-10.8) x10^3/uL RBC 3.53 L (4.20-5.40) 10^6/uL Hgb 11.9 L (12.0-16.0) g/dL Hct 33.3 L (37.0-47.0) % MCV 94.3 (81.0-99.0) fL MCH 33.7 H (27.0-31.0) pg MCHC 35.7 (32.0-36.0) g/dL RDW 13.0 (12.0-15.0) % Plt Count 202 (130-450) 10^3/uL MPV 9.4 (7.9-10.8) fL Neut # (Auto) 4.2 (1.5-6.6) 10^3/uL Lymph # (Auto) 1.2 L (1.5-3.5) 10^3/uL Warren # (Auto) 1.2 H (0.0-1.0) 10^3/uL Eos # (Auto) 0.0 (0.0-0.7) 10^3/uL Baso # (Auto) 0.0 (0.0-0.1) 10^3/uL Absolute Nucleated RBC 0.00 x10^3/uL Nucleated RBC % 0.0 /100WBC PT (9.9-12.6) secs INR (0.8-1.2) Sodium 123 L (135-145) mmol/L Potassium (3.5-5.0) mmol/L Chloride (101-111) mmol/L Carbon Dioxide (21-32) mmol/L Anion Gap (6-13) BUN (6-20) mg/dL Creatinine (0.4-1.0) mg/dL Estimated GFR (MDRD) (>89) Glucose (70-100) mg/dL POC Whole Bld Glucose 168 H (70 - 100) mg/dL Calcium (8.5-10.3) mg/dL Cortisol AM Sample ug/dL Nasal Screen MRSA (PCR) (NEGATIVE) 04/22/22 04/22/22 04/22/22 Range/Units 16:43 13:20 13:14 WBC (4.8-10.8) x10^3/uL RBC (4.20-5.40) 10^6/uL Hgb (12.0-16.0) g/dL Hct (37.0-47.0) % MCV (81.0-99.0) fL MCH (27.0-31.0) pg MCHC (32.0-36.0) g/dL RDW (12.0-15.0) % Plt Count (130-450) 10^3/uL MPV (7.9-10.8) fL Neut # (Auto) (1.5-6.6) 10^3/uL Lymph # (Auto) (1.5-3.5) 10^3/uL Warren # (Auto) (0.0-1.0) 10^3/uL Eos # (Auto) (0.0-0.7) 10^3/uL Baso # (Auto) (0.0-0.1) 10^3/uL Absolute Nucleated RBC x10^3/uL Nucleated RBC % /100WBC PT 12.7 H (9.9-12.6) secs INR 1.1 (0.8-1.2) Sodium (135-145) mmol/L Potassium (3.5-5.0) mmol/L Chloride (101-111) mmol/L Carbon Dioxide (21-32) mmol/L Anion Gap (6-13) BUN (6-20) mg/dL Creatinine (0.4-1.0) mg/dL Estimated GFR (MDRD) (>89) Glucose (70-100) mg/dL POC Whole Bld Glucose 146 H (70 - 100) mg/dL Calcium (8.5-10.3) mg/dL Cortisol AM Sample ug/dL Nasal Screen MRSA (PCR) NEGATIVE (NEGATIVE) - Other Results/Comments Other Results/Comments: EKG was done today: Indication resting tachycardia, history of stroke, concern for A-fib I interpreted the EKG EKG showed normal sinus rhythm, rate 83, a short run of supraventricular bigeminy, otherwise WNL. Since EKG from 01/14/2022, PACs are new. Assessment/Plan - Problem List (1) Confusion Impression: Her confusion and her somnolence are much better than the past 2 days. 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 Tg Rosenthal, at [facility] ([phone]) yesterday 04/22. Dr. Rosenthal thinks this could also be confusion from a new infection and recommended work-up for infection. Her nasal swab for all viruses was negative on admission, and no signs of PNA or UTI. Dr Rosenthal also advised a CTA head and neck. Plan: CTA head and neck today Since the patient is on Plavix, we would not be asking for ED provider to perform an LP until approx tomorrow (at least 4 days off PLavix). However with the patient improving as her sodium improves and no signs of an infection or signs of meningitis, the LP may not need to be done Continue neurochecks every 4 hours Continue treating the underlying hyponatremia Remain in the ICU, in case hypertonic saline needs to be restarted PT, ST and OT evaluations today (2) Hyponatremia Assessment/Plan: Patient has a "history of low sodium", unknown for what period of time, or what was the cause. said she was never treated with salt tablets but she did salt her food freely. She was not drinkng excessive free water or have potomania, like a tea and toast diet, to consider hemodilution.. She had a stroke 5 months ago. No history of subarachnoid hemorrhage though, which could then be the cause of "central salt wasting". She is not hyperglycemic would have caused pseudohyponatremia. All labs were reviewed. 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 She presented with a sodium of 126, and her sodium decreased to 124 then 119 this a.m., despite being on isotonic NS. Therefore a urine sodium level was sent off and it was very high at 142. This indicates that she is not able to retain salt, or is retaining free water, consistent with SIADH. Her TSH is not high, ruling out hypothyroidism as the cause of SIADH. Her morning cortisol level was normal ruling out adrenal insufficiency. She was transferred to the ICU yesterday and received 1L of hypertonic saline. With that, the Na mala to 123>> 129 this a.m. Plan: Cont to monitor serum sodium every 12 h. Remain in the ICU yet today in case another hypertonic saline treatment is needed when her afternoon serum sodium result is back Goal is a correction of 6 to 8 mEq of Na in 24 hours. Tentatively this patient may require daily salt tablets for chronic treatment. (4) Hx of completed stroke Assessment/Plan: The described that the patient had new onset of confusion in early Jan 2022, brought her to the ER, testing showed she had parainfluenza, no brain imaging was done. She was then seen by her PCP sometime later, no brain imaging was done. She was then seen by her Hydro[employer]inist DR Da Silva, and he did feel that she had sx suspicious for stroke and a brain MRI was ordered and done which by then was 2 to 3 months months out from the beginning of symptoms. It did show a stroke. She then saw a neurologist in March 2022. 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 She was ordered to get PT for balance and walking, Speech Therapy for cognitive therapy. The says that the patient refused to participate to do these. She has been able to function independently such as walk, feed herself and toilet herself. The brought in the office note from March [address] Tg Rosenthal and the impression was cognitive impairment after stroke. I reviewed these pages. Dr Rosenthal wanted a ZioPatch to check for Afib. The told me that was done and no A-fib was seen despite the patient having "palpitations". CT head done 04/21 in the ED was read as having "Left parietal-occipital encephalomalacia indicating prior infarct." MRI head done 04/21 in the ED was read as having "No acute ischemia. Encepha lomalacia with surrounding T2 hyperintensity in the left posterior occipital region, seen on prior study but there is new central liquefaction. Impression: Evolving left parietal lobe infarct." When I spoke to her neurologist, Dr. Tg Rosenthal, and read her these findings, Dr. Rosenthal felt they were probably late effects of the same old stroke and not a new or more recent stroke in evolution, but recommended that I speak to Radiology to define what that meant. I contacted the Radiology reader, Dr Jazlyn Park and discussed those findings of "liquifaction". Dr Park said that is the normal progression of an old stroke, which will eventually turn into a "hole" where the stroke damaged the brain. Dr Rosenthal advised she have a CTA head and neck. Plan: According to the office visit note from 1 mo ago, her neurologist ordered an Echocardiogram to be done as an outpatient, and this has not yet been done. Will obtain an Echocardiogram with bubble study now. This may change her medical management if a clot is found, for example. Will obtain EKG, none done at admission. Continue telemetry, monitoring for Afib. Obtain Echo w/ bubble study Many of her meds may have to be changed to IV when she is not swallowing well. Speech Therapy ordered and to see her today. Plavix will be on hold until after the CTA is done (recheck for bleed) and until after an LP by ED provider may be needed PT, ST and OT evaluations today. (5) HTN She is running systolic BP 150-170 here. At home she took lisinopril and propranolol We resumed the lisinopril, slightly lower dose and holding parameters Plan: We will not use propranolol which has a very short half-life. We will start metoprolol tartrate Will order prn iv Hydralazine if BP rises excessively (6) Tachycardia When doing rehab today, it was reported that her heart rate went from 88 to 110 while sitting, trying to eat solid foods. The therapist thought it was from being frustrated. Also the patient was on propranolol at home which she is not on here. Plan: Will obtain EKG, none done at admission. Continue telemetry, monitoring for Afib. We will restart a beta-esther. We will not use propranolol because of his very short half-life. Will not give Toprol-XL because she needs meds crushed We will start metoprolol tartrate 25 twice daily EKG done today (I interpreted) shows: Normal sinus rhythm, rate 83, left atrial enlargement, short run of atrial bigeminy, otherwise WNL Since EKG from 01/14/2022, PACs are new (7) DM type 2 (diabetes mellitus, type 2) Assessment/Plan: This patient was on glipizide and metformin at home, no insulin. Her A1c came back at 7.7 Plan: A carb-controlled diet has been ordered but this needs to be de-escalated to a pured diet and she needs to be fed. Continue with hypoglywait her A1c result Swallow eval ordered.
[2022-04-23 11:18] LABS: ESTIMATED AVERAGE GLUCOSE 174 mg/dL (70-100); HEMOGLOBIN A1c% 7.7 % (4.27-6.07)
[2022-04-23 11:29] LABS: CHOL/HDL RATIO 1.8 (<4.4); CHOLESTEROL 153 mg/dL; HDL CHOLESTEROL 83 mg/dL; TRIGLYCERIDES 39 mg/dL
[2022-04-23] MEDS ORDERED: iohexoL-300 100 ML VIAL ONE (12:02)
[2022-04-23] MEDS: METOPROLOL TARTRATE 25 MG TABLET PO SCH ×2 (12:06→20:55)
[2022-04-23] MEDS: POTASSIUM CHLOR 10 MEQ/100 ML 10 MEQ/100 ML BAG IV SCH ×3 (12:06→14:52)
[2022-04-23] MEDS ORDERED: iohexoL-300 100 ML VIAL IVP ONE (16:05)
[2022-04-23] MEDS ORDERED: hydrALAZINE INJ 20 MG/ML VIAL IVP ONE (16:12)
[2022-04-23] MEDS ORDERED: hydrALAZINE INJ 20 MG/ML VIAL IVP PRN (16:13)
--- NOTE | 2022-04-23 16:31 | CT Report ---
PROCEDURE: ANGIO HEAD W/WO INDICATIONS: Stroke-like sx CONTRAST: 80mL Omni 300 TECHNIQUE: Precontrast 4.5 mm thick angled axial sections acquired from the foramen magnum to the vertex. Afte r the administration of intravenous contrast, 1 mm thick sections acquired through the [facility] [facility] [place] is. Postcontrast 4.5 mm thick sections then re-acquired from the foramen magnum to the vertex. 3-di mensional uisskez-hnzxpsrqj-ymqrgbxlep (MIP) and/or volume rendering reformats were acquired of the c entral intracranial vasculature. For radiation dose reduction, the following was used: automated ex posure control, adjustment of mA and/or kV according to patient size. COMPARISON: MR brain 04/21/2022 CT head 04/21/2022, MRA neck 03/02/2022, CTA neck 04/23/2022 FINDINGS: Image quality: Excellent. Anterior circulation: Intracranial internal carotid arteries are normal in size and flow. The flow within the paired anterior cerebral arteries is normal and symmetric. The flow within the middle cer ebral arteries is normal and symmetric. The anterior communicating artery is seen. No aneurysms are seen. Posterior circulation: Vertebral arteries are codominant. Visualized portions of the vertebral arter ies demonstrate normal caliber, and join to form a normal appearing basilar artery. Flow within the posterior cerebral arteries is normal and symmetric. No aneurysms are seen. The ventricular system and cortical sulci demonstrate atrophy, consistent for patient's stated age. There are areas of hypodensity in the periventricular and subcortical white matter. There is no acut e intra or extra-axial fluid collection. No acute hemorrhage, mass lesion or midline shift. There i s evolving focus of subacute infarction in the left posterior parietal lobe. Brainstem is unremarkabl e. Globes are symmetrical. Sinuses are aerated. Osseous structures are intact. IMPRESSION: Evolving focus of subacute left parietal infarct. No superimposed hemorrhage. No areas of hemodynamically significant stenosis, vascular occlusion or aneurysmal dilation within th e anterior circulation. Reviewed by: Leny Sam MD on 04/23/2022 4:30 PM PST Approved by: Leny Sam MD on 04/23/2022 4:30 PM PST Station ID: [id number]
--- NOTE | 2022-04-23 16:34 | CT Report ---
PROCEDURE: ANGIO NECK W INDICATIONS: Stroke-like sx CONTRAST: 80mL Omni 300 TECHNIQUE: After the administration of intravenous contrast, 1.5 mm axial sections acquired from the aortic arch to the [place] [employer] [place]. Coronal 3-D maximum intensity projection (MIP) and/or volume rendering ref ormats were then performed. For radiation dose reduction, the following was used: automated exposur e control, adjustment of mA and/or kV according to patient size. COMPARISON: MR brain 04/21/2022 CT head 04/21/2022, MRA neck 03/02/2022, CTA head 04/23/2022 FINDINGS: Image quality: Excellent. Carotid system: The great vessels demonstrate a conventional anatomy as they arise from the aortic a rch. The origins of the common carotid arteries appear patent. The common carotid arteries demonstr ate normal calibers and courses. The bifurcation regions appear normal bilaterally. There are calcif ications at the origin of the internal carotid arteries bilaterally. There is approximately 50% steno sis on the right as well as less than 50% stenosis on the left. Overall appearance has not significan tly changed. Posterior circulation: The origins of the vertebral arteries appear patent. The more s uperior portions of the vertebral arteries demonstrate normal course and caliber. They join to form a normal appearing basilar artery. Soft tissues: Visualized neck soft tissues demonstrate no suspicious abnormalities. The thyroid is normal in size and there are no incidental findings. Bones: No suspicious bony lesions. Visualized cervical spine appears normally aligned. IMPRESSION: Stable appearance of a 50% stenosis at the origin of the internal carotid arteries bilaterally. The estimate of stenosis included in the report of the imaging study was calculated using the NASCET method CLINICAL RECOMMENDATION STATEMENTS: In patients <35 years with an ITN detected on CT, MRI, or extrathyroidal ultrasound, the Committee re commends further evaluation with dedicated thyroid ultrasound if the nodule is "e1 cm and has no susp icious imaging features, and if the patient has normal life expectancy. In patients "e35 years with an ITN detected on CT, MRI, or extrathyroidal ultrasound, the Committee r ecommends further evaluation with dedicated thyroid ultrasound if the nodule is "e1.5 cm and has no s uspicious imaging features, and if the patient has normal life expectancy. (ACR, 2014) Reviewed by: Leny Sam MD on 04/23/2022 4:32 PM PST Approved by: Leny Sam MD on 04/23/2022 4:32 PM PST Station ID: [id number]
[2022-04-23] MEDS: SODIUM CHLORIDE 1 GM TABLET PO SCH (17:57)
[2022-04-23] MEDS: ZINC OXIDE 20% OINT 30 GM TUBE TOP PRN (20:54)
[2022-04-23] MEDS: ATORVASTATIN 10 MG TABLET PO SCH (20:55)
[2022-04-23 21:57] LABS: CALCIUM, IONIZED 1.03 mmol/L (1.15-1.33); VBG PH 7.456 (7.31-7.41)
[2022-04-23 22:07] LABS: MAGNESIUM 1.7 mg/dL (1.7-2.8); PHOSPHORUS 1.9 mg/dL (2.5-4.6); POTASSIUM 3.5 mmol/L (3.5-5.0)
[2022-04-23] MEDS ORDERED: MAGNESIUM SULFATE 2 GRAM 2 GM/50 ML BAG IV ONE (22:11)
[2022-04-23] MEDS ORDERED: CALCIUM GLUC 1,000MG/50ML-NACL 1,000 MG/50 ML BAG IV ONE (23:00)
[2022-04-23] MEDS: POTASSIUM CHLORIDE 20 MEQ TABLET PO SCH (23:03)
[2022-04-23] MEDS: NEUTRA-PHOS 250 MG TABLET PO SCH (23:03)
[2022-04-24] MEDS: POTASSIUM CHLORIDE 20 MEQ TABLET PO SCH (00:44)
[2022-04-24] MEDS: NEUTRA-PHOS 250 MG TABLET PO SCH ×3 (00:45→08:26)
[2022-04-24] MEDS: SODIUM CHLORIDE FLUSH 0.9% 10 ML SYRINGE IVP SCH ×3 (02:31→20:12)
[2022-04-24] MEDS: ZINC OXIDE 20% OINT 30 GM TUBE TOP PRN (05:18)
[2022-04-24 05:28] LABS: CALCIUM, IONIZED 1.01 mmol/L (1.15-1.33); VBG PH 7.474 (7.31-7.41)
[2022-04-24 05:39] LABS: CALCIUM 7.8 mg/dL (8.5-10.3); CREATININE 0.5 mg/dL (0.4-1.0); MAGNESIUM 2.2 mg/dL (1.7-2.8); PHOSPHORUS 2.3 mg/dL (2.5-4.6)
[2022-04-24] MEDS ORDERED: CALCIUM GLUC 1,000MG/50ML-NACL 1,000 MG/50 ML BAG IV ONE (06:00)
[2022-04-24] MEDS ORDERED: INSULIN LISPRO 300 UNIT/3 ML PEN SUBQ SCH (08:00)
[2022-04-24] MEDS ORDERED: SODIUM CHLORIDE 0.9% 1,000 ML IV SCH (08:23)
[2022-04-24] MEDS: ASPIRIN EC 81 MG TABLET PO SCH (08:25)
[2022-04-24] MEDS: SODIUM CHLORIDE 1 GM TABLET PO SCH (08:26)
[2022-04-24] MEDS: METOPROLOL TARTRATE 25 MG TABLET PO SCH ×2 (08:26→20:58)
[2022-04-24] MEDS: ASCORBIC ACID 500 MG TABLET PO SCH (08:26)
[2022-04-24] MEDS: lisinopriL 20 MG TABLET PO SCH (08:26)
[2022-04-24] MEDS: MULTIVITAMIN W/IRON, MINERALS 15 ML PO SCH (08:27)
--- NOTE | 2022-04-24 08:47 | PROVIDER PROGRESS NOTE ---
Assessment/Plan - Problem List (1) Confusion Assessment/Plan: Her confusion and her somnolence are much better than the somnolence we saw the first 2 days. 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 Tg Rosenthal, at [facility] ([phone]) on 04/22. Dr. Rosenthal thinks this could also be confusion from a new infection and recommended work-up for infection. Her nasal swab for all viruses was negative on admission, and no signs of PNA or UTI or meningitis. Dr Rosenthal also advised a CTA head and neck which were completed yesterday 04/23>> it showed a 50% L internal carotid stenosis, and same stroke that was previously described on CT and MRI Plan: Continue managing the pre-existing hyponatremia No LP is planned, will resume her Plavix 75 mg p.o. She can be moved out of the ICU to Med/Surg today PT, ST and OT to continue. Her walking, her balance and ADLs are not bad, but she has extremely poor short-term memory and needs continued repetitive cueing and reminders, therefore she may need to go to SNF for rehab, and it appears that returning home to live alone will not be safe because of her very poor cognition. (2) Hyponatremia Assessment/Plan: Improving. All labs were reviewed. Patient has a "history of low sodium", unknown for what period of time, or what was the cause. Xavier, her S.O. said she was never treated with salt tablets but she did salt her food freely. She was not drinkng excessive free water or have potomania, like a tea and toast diet, to consider hemodilution.. She had a stroke 5 months ago. No history of subarachnoid hemorrhage though, which could then be the cause of "central salt wasting". She is not hyperglycemic would have caused pseudohyponatremia. Serum sodium level has improved this a.m. to 130, after Hypertonic saline 1L given a day ago, then isotonic saline continued, and then she got 1 salt tablet, started last evening 04/23. Plan: We will decrease IV NS from 125 cc/h to 60 cc/h and stop NS overnight tonight at 2300 We will continue with 1 salt tablet daily. 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 She presented with a sodium of 126, and her sodium decreased to 124 then 119 this a.m., despite being on isotonic NS. Therefore a urine sodium level was sent off and it was very high at 142. This indicates that she is not able to retain salt, or is retaining free water, consistent with SIADH. Her TSH is not high, ruling out hypothyroidism as the cause of SIADH. Her morning cortisol level was normal ruling out adrenal insufficiency. She was transferred to the ICU and received 1L of hypertonic saline 2 days ago. With that, the Na mala to 129 then dropped to 127 last evening and a salt tablet was started. Na is 130 this a.m. Plan: We will transfer patient out of ICU, no Hypertonic saline planned again Cont to monitor serum sodium every 12 h. Manage with iv isotonic saline being decreased then stopped tonight, and continuing 1 salt tablet daily (4) Hx of completed stroke Assessment/Plan: The described that the patient had new onset of confusion in early Jan 2022, brought her to the ER, testing showed she had parainfluenza, no brain imaging was done. She was then seen by her PCP sometime later, no brain imaging was done. She was then seen by her [facility] Dr Da Silva, and he did feel that she had sx suspicious for stroke and a brain MRI was ordered and done which by then was 2 to 3 months months out from the beginning of symptoms. It did show a stroke. She then saw a neurologist in March 2022. 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 She was ordered to get PT for balance and walking, Speech Therapy for cognitive therapy. The says that the patient refused to participate to do these. She has been able to function independently such as walk, feed herself and toilet herself. The brought in the office note from March [address] Tg Rosenthal and the impression was cognitive impairment after stroke. I reviewed these pages. Dr Rosenthal wanted a ZioPatch to check for Afib. The told me that was done and no A-fib was seen despite the patient having "palpitations". CT head done 04/21 in the ED was read as having "Left parietal-occipital encephalomalacia indicating prior infarct." MRI head done 04/21 in the ED was read as having "No acute ischemia. Encephalomalacia with surrounding T2 hyperintensity in the left posterior occipital region, seen on prior study but there is new central liquefaction. Impression: Evolving left parietal lobe infarct." When I spoke to her neurologist, Dr. Tg Rosenthal, and read her these findings, Dr. Rosenthal felt they were probably late effects of the same old stroke and not a new or more recent stroke in evolution, but recommended that I speak to Radiology to define what that meant. I contacted the Radiology reader, Dr Jazlyn Park and discussed those findings of "liquifaction". Dr Park said that is the normal progression of an old stroke, which will eventually turn into a "hole" where the stroke damaged the brain. Dr Rosenthal advised she have a CTA head and neck which were completed yesterday 04/23>> reported to have 50% L internal carotid stenosis, same stroke that was previously described. An Echo was done yesterday 04/23, it showed normal LVEF, mild diastolic dysfunction, no clot seen, but there was no bubble study done to check for intra-cardiac shunt. Plan: According to the neurology office visit note from 1 mo ago, her neurologist ordered an Echocardiogram to be done as an outpatient, and that had not yet been done. An Echo was done yesterday 04/23, but it had no bubble study. Will re-order the bubble study. Continue telemetry, monitoring for Afib. Many of her meds were changed to IV when she was not swallowing well. Will resume po meds No LP is planned, will resume her Plavix 75 mg p.o. daily Speech Therapy, PT and OT to continue to work with her. Awaiting recommendations for poss DCh to a SNF. And it appears that returning home to live alone will not be safe because of her very poor cognition. Closest next of kin is her son who is in [place] and is himself hospitalized. The next in line is a brother who our employee services manager has started to contact. Someone will need to be a medical power of business attorney for her. (5) PVD Her CTA head and neck done here yesterday 04/23, showed a 50% L internal carotid stenosis. Plan: Plavix has been restarted (since no LP is planned). We will assure that she is getting good LDL cholesterol control, chol was checked and she is on Atorvastatin (6) HTN She has been running systolic BP 150-170 here. At home she took lisinopril, minipress and propranolol We resumed the lisinopril, with holding parameters We did not resume propranolol which has a very short half-life. Started new metoprolol tartrate, started yesterday Plan: Cont prn iv Hydralazine if BP rises excessively Continue Metoprolol Will resume her home dose of Minipress today (7) DM type 2 (diabetes mellitus, type 2) Assessment/Plan: This patient was on glipizide and metformin at home, no insulin. Her A1c came back at 7.7 Plan: A carb-controlled diet has been ordered but this needs to be de-escalated to a pured diet and she needed to be fed. ST is working with her, will be adjusting her diet. (8) Tachycardia Resolved When doing rehab 04/23, it was reported that her heart rate went from 88 to 110 while sitting, trying to eat solid foods. The therapist thought it was from being frustrated. Also the patient was on propranolol at home which she was not on here. An EKG was done 04/23, since none was done at admission. This was unremarkable, not tachycardic at that moment. (It showed Normal sinus rhythm, rate 83, left atrial enlargement, short run of atrial bigeminy, oth, but not the propranolol she was on at home, because of his very short half-life. She got Metoprolol tartrate 25 twice daily. VS were reviewed. Today her resting HR is Plan: Continue telemetry, monitoring for Afib. Continue Metoprolol - Current Meds Current Meds: Current Medications Generic Name Dose Route Start Last Admin Trade Name Donna PRN Reason Stop Dose Admin Ascorbic Acid 500 mg 04/22/22 09:00 04/23/22 08:28 Ascorbic Acid 500 Mg Tablet PO Not Given DAILY LISHA Aspirin 81 mg 04/22/22 09:00 04/23/22 08:28 Aspirin Ec 81 Mg Tablet PO Not Given DAILY LISHA Atorvastatin Calcium 30 mg 04/22/22 21:00 04/23/22 20:55 Atorvastatin 10 Mg Tablet PO 30 mg QPM LISHA Administration Metoprolol Tartrate 25 mg 04/23/22 12:00 04/23/22 20:55 Metoprolol Tartrate 25 Mg Tablet PO 25 mg BID LISHA Administration Multi-Ingredient Ointment 1 applic 04/23/22 19:23 04/24/22 05:18 Zinc Oxide 20% Oint 30 Gm Tube TOP 1 applic PRN PRN Administration Skin Care Multivitamins/Folic Acid/Vitamin C 15 ml 04/22/22 11:00 04/23/22 08:28 Multivitamin W/Iron, Minerals 15 Ml PO Not Given DAILY LISHA Nystatin 1 applic 04/22/22 21:00 04/23/22 20:54 Nystatin Powder 15 Gm TOP 1 applic BID LISHA Administration Ondansetron HCl 4 mg 04/21/22 21:57 04/23/22 16:14 Ondansetron Odt 4 Mg Tablet TL 4 mg Q6HR PRN Administration Nausea / Vomiting Sodium Chloride 10 ml 04/22/22 01:00 04/24/22 02:31 Sodium Chloride Flush 0.9% 10 Ml Syringe IVP Not Given 0100,0900,1700 LISHA Sodium Chloride 1 gm 04/23/22 17:39 04/23/22 17:57 Sodium Chloride 1 Gm Tablet PO 1 gm DAILY LISHA Administration Sodium Phosphate 250 mg 04/24/22 07:00 04/24/22 06:32 Neutra-Phos 250 Mg Tablet PO 04/24/22 09:01 250 mg Q2H LISHA Administration Protocol - Lab Result Fish Bone Diagrams: 04/23/22 05:36 04/24/22 05:18 - Additional Planning My Orders: My Active Orders 04/23/22 10:48 Initiate ICU Electrolyte Prot. [RC] QSHIFT 04/23/22 12:00 Metoprolol Tartrate [Lopressor] 25 mg PO BID 04/23/22 12:35 Miscellaenous Nursing Order [RC] QSHIFT 04/23/22 16:13 hydrALAZINE INJ [Apresoline Inj] 10 mg IVP Q8H PRN 04/23/22 17:39 Sodium Chloride [Salt Tab] 1 gm PO DAILY 04/23/22 19:23 Zinc Oxide 20% Oint [Zinc Oxide] 1 applic TOP PRN PRN 04/24/22 07:00 Neutra-Phos [K-Phos Neutral] 250 mg PO Q2H 04/24/22 08:00 Insulin Lispro [Humalog Kwikpen U-100] 1 - 9 unit SUBQ 0800,1200,1700,2100 04/24/22 08:21 Telemetry- [RC] Q4HR Transfer [Admit \\ Transfer \\ Status] [RC] .ONCE 04/24/22 08:22 Love Discontinuation [RC] ONCE 04/24/22 08:23 Sodium Chloride 0.9% [Normal Saline 0.9%] 1,000 ml IV 60 mls/hr 04/24/22 09:00 Clopidogrel [Plavix] 75 mg PO DAILY lisinopriL [Zestril] 20 mg PO DAILY 04/24/22 17:00 SODIUM [CHEM] Q12H 04/25/22 05:00 BMP - BASIC METABOLIC PANEL [CHEM] DAILYLAB CALCIUM, IONIZED ([facility]) [BG] DAILYLAB MAGNESIUM [CHEM] DAILYLAB PHOSPHORUS [CHEM] DAILYLAB 04/26/22 05:00 CALCIUM, IONIZED ([facility]) [BG] DAILYLAB MAGNESIUM [CHEM] DAILYLAB PHOSPHORUS [CHEM] DAILYLAB Subjective - Subjective Patient Reports: Resting Comfortably, No Complaints Nursing Reports: Other (She did not remember that she worked with PT today.) Objective Vital Signs: Vital Signs - 24 hr 04/23/22 04/23/22 04/23/22 09:00 10:00 11:00 Temperature Heart Rate [ 97 101 H 81 Monitoring electrodes] Respiratory 18 17 16 Rate Blood Pressure Blood Pressure 164/76 H 162/92 H 170/70 H [Right Brachial artery] O2 Saturation 98 97 97 O2 Saturation [ With Activity] If not protocol : Oxygen Flow, liters/minute 04/23/22 04/23/22 04/23/22 11:15 11:58 11:59 Temperature 37.0 C Heart Rate [ 90 Monitoring electrodes] Respiratory 16 Rate Blood Pressure Blood Pressure 153/77 H [Right Brachial artery] O2 Saturation 98 O2 Saturation [ 97 With Activity] If not protocol : Oxygen Flow, liters/minute 04/23/22 04/23/22 04/23/22 12:06 13:00 14:00 Temperature Heart Rate [ 67 66 Monitoring electrodes] Respiratory 17 15 Rate Blood Pressure 153/77 H Blood Pressure 163/69 H 167/70 H [Right Brachial artery] O2 Saturation 99 100 O2 Saturation [ With Activity] If not protocol : Oxygen Flow, liters/minute 04/23/22 04/23/22 04/23/22 15:00 16:00 16:35 Temperature 36.7 C Heart Rate [ 73 79 78 Monitoring electrodes] Respiratory 18 22 16 Rate Blood Pressure Blood Pressure 178/72 H 201/82 H 162/69 H [Right Brachial artery] O2 Saturation 100 98 100 O2 Saturation [ With Activity] If not protocol : Oxygen Flow, liters/minute 04/23/22 04/23/22 04/23/22 17:00 17:05 18:00 Temperature Heart Rate [ 86 88 Monitoring electrodes] Respiratory 17 18 Rate Blood Pressure Blood Pressure 165/68 H 151/44 H [Right Brachial artery] O2 Saturation 100 97 O2 Saturation [ With Activity] If not protocol : Oxygen Flow, liters/minute 04/23/22 04/23/22 04/23/22 19:00 19:15 19:52 Temperature 36.7 C 37 C Heart Rate [ 83 Monitoring electrodes] Respiratory 18 Rate Blood Pressure Blood Pressure 151/65 H [Right Brachial artery] O2 Saturation 96 O2 Saturation [ With Activity] If not protocol : Oxygen Flow, liters/minute 04/23/22 04/23/22 04/23/22 20:00 20:55 21:00 Temperature Heart Rate [ 74 88 Monitoring electrodes] Respiratory 13 16 Rate Blood Pressure 166/67 H Blood Pressure 166/67 H 142/65 H [Right Brachial artery] O2 Saturation 96 96 O2 Saturation [ With Activity] If not protocol : Oxygen Flow, liters/minute 04/23/22 04/23/22 04/23/22 22:00 23:00 23:09 Temperature 36.6 C Heart Rate [ 66 68 Monitoring electrodes] Respiratory 15 14 Rate Blood Pressure Blood Pressure 150/64 H 164/59 H [Right Brachial artery] O2 Saturation 96 97 O2 Saturation [ With Activity] If not protocol : Oxygen Flow, liters/minute 04/24/22 04/24/22 04/24/22 00:40 01:00 02:00 Temperature Heart Rate [ 75 72 77 Monitoring electrodes] Respiratory 14 13 15 Rate Blood Pressure Blood Pressure 167/63 H 151/59 H 158/56 H [Right Brachial artery] O2 Saturation 94 98 99 O2 Saturation [ With Activity] If not protocol 2 2 : Oxygen Flow, liters/minute 04/24/22 04/24/22 04/24/22 03:00 04:00 05:00 Temperature 37.2 C Heart Rate [ 67 74 79 Monitoring electrodes] Respiratory 14 16 20 Rate Blood Pressure Blood Pressure 153/52 H 150/48 H 154/55 H [Right Brachial artery] O2 Saturation 97 98 97 O2 Saturation [ With Activity] If not protocol 2 2 2 : Oxygen Flow, liters/minute 04/24/22 04/24/22 06:00 07:00 Temperature Heart Rate [ 74 76 Monitoring electrodes] Respiratory 14 16 Rate Blood Pressure Blood Pressure 164/61 H 165/56 H [Right Brachial artery] O2 Saturation 99 99 O2 Saturation [ With Activity] If not protocol 2 2 : Oxygen Flow, liters/minute Oxygen O2 Source [With Activity] Room air O2 Source Nasal cannula I&O (Last 24 Hrs): Intake and Output Totals x24h 04/22/22 04/23/22 04/24/22 23:59 23:59 23:59 Intake Total 9165.045 7138.916 1254.167 Output Total 3887 2165 1035 Balance -2086.000 1657.916 219.167 General: Alert, No acute distress HEENT: PERRLA, Other (Cheeks are flushed) Neck: Supple, No JVD Neuro: Alert, Non Focal, Other (Very poor short-term memory) Cardiovascular: Regular rate Respiratory: No respiratory distress Abdomen: Soft Extremities: No clubbing, No edema - Results Results: Laboratory Results WBC 6.6 x10^3/uL (4.8-10.8) 04/23/22 05:36 RBC 3.53 10^6/uL (4.20-5.40) L 04/23/22 05:36 Hgb 11.9 g/dL (12.0-16.0) L 04/23/22 05:36 Hct 33.3 % (37.0-47.0) L 04/23/22 05:36 MCV 94.3 fL (81.0-99.0) 04/23/22 05:36 MCH 33.7 pg (27.0-31.0) H 04/23/22 05:36 MCHC 35.7 g/dL (32.0-36.0) 04/23/22 05:36 RDW 13.0 % (12.0-15.0) 04/23/22 05:36 Plt Count 202 10^3/uL (130-450) 04/23/22 05:36 MPV 9.4 fL (7.9-10.8) 04/23/22 05:36 Neut # (Auto) 4.2 10^3/uL (1.5-6.6) 04/23/22 05:36 Lymph # (Auto) 1.2 10^3/uL (1.5-3.5) L 04/23/22 05:36 [place] # (Auto) 1.2 10^3/uL (0.0-1.0) H 04/23/22 05:36 Eos # (Auto) 0.0 10^3/uL (0.0-0.7) 04/23/22 05:36 Baso # (Auto) 0.0 10^3/uL (0.0-0.1) 04/23/22 05:36 Absolute Nucleated RBC 0.00 x10^3/uL 04/23/22 05:36 Nucleated RBC % 0.0 /100WBC 04/23/22 05:36 PT 12.7 secs (9.9-12.6) H 04/22/22 13:14 INR 1.1 (0.8-1.2) 04/22/22 13:14 VBG pH 7.474 (7.31-7.41) H 04/24/22 05:18 Ionized Calcium 1.01 mmol/L (1.15-1.33) L 04/24/22 05:18 Sodium 130 mmol/L (135-145) L 04/24/22 05:18 Potassium 4.0 mmol/L (3.5-5.0) 04/24/22 05:18 Chloride 101 mmol/L (101-111) 04/24/22 05:18 Carbon Dioxide 22 mmol/L (21-32) 04/24/22 05:18 Anion Gap 7.0 (6-13) 04/24/22 05:18 BUN 7 mg/dL (6-20) 04/24/22 05:18 Creatinine 0.5 mg/dL (0.4-1.0) 04/24/22 05:18 Estimated GFR (MDRD) 118 (>89) 04/24/22 05:18 Glucose 167 mg/dL (70-100) H 04/24/22 05:18 POC Whole Bld Glucose 202 mg/dL (70 - 100) H 04/24/22 07:40 Estimat Average Glucose 174 mg/dL (70-100) H 04/23/22 05:36 Hemoglobin A1c % 7.7 % (4.27-6.07) H 04/23/22 05:36 Calcium 7.8 mg/dL (8.5-10.3) L 04/24/22 05:18 Phosphorus 2.3 mg/dL (2.5-4.6) L 04/24/22 05:18 Magnesium 2.2 mg/dL (1.7-2.8) 04/24/22 05:18 Total Bilirubin 0.6 mg/dL (0.2-1.0) 04/21/22 12:26 AST 18 IU/L (10-42) 04/21/22 12:26 ALT 15 IU/L (10-60) 04/21/22 12:26 Alkaline Phosphatase 52 IU/L (42-121) 04/21/22 12:26 Ammonia 12.8 umol/L (7-35) 04/21/22 21:54 Total Protein 6.7 g/dL (6.7-8.2) 04/21/22 12:26 Albumin 3.5 g/dL (3.2-5.5) 04/21/22 12:26 Globulin 3.2 g/dL (2.1-4.2) 04/21/22 12:26 Albumin/Globulin Ratio 1.1 (1.0-2.2) 04/21/22 12:26 Triglycerides 39 mg/dL (-149) 04/23/22 07:52 Cholesterol 153 mg/dL (-199) 04/23/22 07:52 LDL Cholesterol, Calc Not Reportable 04/23/22 07:52 VLDL Cholesterol Not Reportable 04/23/22 07:52 HDL Cholesterol 83 mg/dL (60-) 04/23/22 07:52 LDL/HDL Ratio Not Reportable 04/23/22 07:52 Cholesterol/HDL Ratio 1.8 (<4.4) 04/23/22 07:52 Lipase 36 U/L (22-51) 04/21/22 12:26 TSH 0.62 uIU/mL (0.34-5.60) 04/21/22 21:15 Cortisol AM Sample 11.1 ug/dL 04/23/22 07:52 Urine Color YELLOW 04/21/22 16:02 Urine Clarity CLEAR (CLEAR) 04/21/22 16:02 Urine pH 8.0 PH (5.0-7.5) H 04/21/22 16:02 Ur Specific [place] 1.015 (1.002-1.030) 04/21/22 16:02 Urine Protein NEGATIVE mg/dL (NEGATIVE) 04/21/22 16:02 Urine Glucose (UA) NEGATIVE mg/dL (NEGATIVE) 04/21/22 16:02 Urine Ketones NEGATIVE mg/dL (NEGATIVE) 04/21/22 16:02 Urine Occult Blood NEGATIVE (NEGATIVE) 04/21/22 16:02 Urine Nitrite NEGATIVE (NEGATIVE) 04/21/22 16:02 Urine Bilirubin NEGATIVE (NEGATIVE) 04/21/22 16:02 Urine Urobilinogen 0.2 (NORMAL) E.U./dL (NORMAL) 04/21/22 16:02 Ur Leukocyte Esterase NEGATIVE (NEGATIVE) 04/21/22 16:02 Ur Microscopic Review NOT INDICATED 04/21/22 16:02 Urine Culture Comments NOT INDICATED 04/21/22 16:02 Urine Sodium 142.0 mmol/L 04/22/22 10:16 Nasal Adenovirus (PCR) NOT DETECTED 04/21/22 21:15 Nasal B. parapertussis DNA (PCR) NOT DETECTED 04/21/22 21:15 Nasal Coronavir 229E PCR NOT DETECTED 04/21/22 21:15 Nasal Coronavir HKU1 PCR NOT DETECTED 04/21/22 21:15 Nasal Coronavir NL63 PCR NOT DETECTED 04/21/22 21:15 Nasal Coronavir OC43 PCR NOT DETECTED 04/21/22 21:15 Nasal Enterovir/Rhinovir PCR NOT DETECTED 04/21/22 21:15 Nasal Influenza B PCR NOT DETECTED 04/21/22 21:15 Nasal Influenza A PCR NOT DETECTED 04/21/22 21:15 Nasal Parainfluen 1 PCR NOT DETECTED 04/21/22 21:15 Nasal Parainfluen 2 PCR NOT DETECTED 04/21/22 21:15 Nasal Parainfluen 3 PCR NOT DETECTED 04/21/22 21:15 Nasal Parainfluen 4 PCR NOT DETECTED 04/21/22 21:15 Nasal RSV (PCR) NOT DETECTED 04/21/22 21:15 Nasal Screen MRSA (PCR) NEGATIVE (NEGATIVE) 04/22/22 13:20 Nasal B.pertussis DNA PCR NOT DETECTED 04/21/22 21:15 Nasal C.pneumoniae (PCR) NOT DETECTED 04/21/22 21:15 [place] Human Metapneumo PCR NOT DETECTED 04/21/22 21:15 Nasal M.pneumoniae (PCR) NOT DETECTED 04/21/22 21:15 Nasal SARS-CoV-2 (PCR) NOT DETECTED 04/21/22 21:15 Salicylates < 6.0 mg/dL 04/21/22 21:15 Urine Opiates Screen NEGATIVE (NEGATIVE) 04/21/22 16:02 Ur Oxycodone Screen NEGATIVE (NEGATIVE) 04/21/22 16:02 Urine Methadone Screen NEGATIVE (NEGATIVE) 04/21/22 16:02 Ur Propoxyphene Screen NEGATIVE (NEGATIVE) 04/21/22 16:02 Acetaminophen < 10 ug/mL (10-30) L 04/21/22 21:15 Ur Barbiturates Screen NEGATIVE (NEGATIVE) 04/21/22 16:02 Ur Tricyclics Screen NEGATIVE (NEGATIVE) 04/21/22 16:02 Ur Phencyclidine Scrn NEGATIVE (NEGATIVE) 04/21/22 16:02 Ur Amphetamine Screen NEGATIVE (NEGATIVE) 04/21/22 16:02 U Methamphetamines Scrn NEGATIVE (NEGATIVE) 04/21/22 16:02 U Benzodiazepines Scrn NEGATIVE (NEGATIVE) 04/21/22 16:02 Urine Cocaine Screen NEGATIVE (NEGATIVE) 04/21/22 16:02 U Cannabinoids Screen NEGATIVE (NEGATIVE) 04/21/22 16:02 Ethyl Alcohol < 5.0 mg/dL 04/21/22 21:15 - Procedures Procedures: Procedures EXCISION OF DUODENUM, ENDO, DIAGN (08/24/19) EXCISION OF ESOPHAGUS, ENDO, DIAGN (08/24/19) EXCISION OF STOMACH, ENDO, DIAGN (08/24/19)
[2022-04-24] MEDS: CLOPIDOGREL 75 MG TABLET PO SCH (09:16)
[2022-04-24] MEDS: INSULIN LISPRO 300 UNIT/3 ML PEN SUBQ SCH ×3 (12:25→20:57)
[2022-04-24] MEDS: NYSTATIN POWDER 15 GM TOP SCH ×2 (13:30→21:04)
[2022-04-24] MEDS: metFORMIN 500 MG TABLET PO SCH (16:57)
[2022-04-24] MEDS: ATORVASTATIN 10 MG TABLET PO SCH (20:57)
[2022-04-24] MEDS: PRAZOSIN 1 MG CAPSULE PO SCH (21:01)
[2022-04-25] MEDS: SODIUM CHLORIDE FLUSH 0.9% 10 ML SYRINGE IVP SCH ×4 (01:11→20:40)
[2022-04-25] MEDS: ZINC OXIDE 20% OINT 30 GM TUBE TOP PRN ×2 (04:36→20:39)
[2022-04-25 05:37] LABS: CALCIUM 7.8 mg/dL (8.5-10.3); CREATININE 0.5 mg/dL (0.4-1.0); MAGNESIUM 1.8 mg/dL (1.7-2.8); PHOSPHORUS 2.4 mg/dL (2.5-4.6); POTASSIUM 3.9 mmol/L (3.5-5.0)
[2022-04-25] MEDS: polyethylene glycoL 3350 17 GM PACKET PO SCH (08:18)
[2022-04-25] MEDS: PRAZOSIN 1 MG CAPSULE PO SCH ×2 (08:19→20:37)
[2022-04-25] MEDS: lisinopriL 20 MG TABLET PO SCH (08:20)
[2022-04-25] MEDS: ASPIRIN EC 81 MG TABLET PO SCH (08:20)
[2022-04-25] MEDS: ASCORBIC ACID 500 MG TABLET PO SCH (08:20)
[2022-04-25] MEDS: SODIUM CHLORIDE 1 GM TABLET PO SCH (08:20)
[2022-04-25] MEDS: METOPROLOL TARTRATE 25 MG TABLET PO SCH ×2 (08:20→20:40)
[2022-04-25] MEDS: metFORMIN 500 MG TABLET PO SCH ×2 (08:21→17:05)
[2022-04-25] MEDS: CLOPIDOGREL 75 MG TABLET PO SCH (08:21)
[2022-04-25] MEDS: MULTIVITAMIN W/IRON, MINERALS 15 ML PO SCH (08:23)
[2022-04-25] MEDS: INSULIN LISPRO 300 UNIT/3 ML PEN SUBQ SCH ×4 (08:41→20:42)
[2022-04-25] MEDS: NYSTATIN POWDER 15 GM TOP SCH ×2 (08:41→20:39)
[2022-04-25] MEDS: CALCIUM CARBONATE CHEW 500 MG TABLET PO SCH ×2 (08:42→20:42)
--- NOTE | 2022-04-25 13:17 | PROVIDER PROGRESS NOTE ---
Assessment/Plan - Problem List (1) Confusion Assessment/Plan: Her confusion and her somnolence are much better than the somnolence we saw the first 2 days. 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 Tg Rosenthal, at [facility] ([id number]) on 04/22. Dr. Rosenthal thinks this could also be confusion from a new infection and recommended work-up for infection. Her nasal swab for all viruses was negative on admission, and no signs of PNA or UTI or meningitis. Dr Rosenthal also advised a CTA head and neck which were completed 04/23>> it showed a 50% L internal carotid stenosis, and same stroke that was previously described on CT and MRI. No LP is planned, so we resumed her Plavix 75 mg p.o. daily Plan: Continue managing the hyponatremia PT, ST and OT to continue. Her walking, her balance and ADLs are not bad, but she has extremely poor short-term memory and needs continued repetitive cuing. Returning home to live alone will not be safe because of her very poor cognition. Her boyfriend Xavier had moved in since the stroke 5 mos ago. PAVEL and I advised Xavier he will need to hire extra caregivers and resources were provided by PAVEL. (2) Hyponatremia Assessment/Plan: Improving. All labs were reviewed. Patient has a "history of low sodium", unknown for what period of time, or what was the cause. Xavier, her S.O. said she was never treated with salt tablets but she did salt her food freely. She was not drinkng excessive free water or have potomania, like a tea and toast diet, to consider hemodilution.. She had a stroke 5 months ago. No history of subarachnoid hemorrhage though, which could then be the cause of "central salt wasting". She is not hyperglycemic would have caused pseudohyponatremia. Serum sodium level has slowly improved, after iv hypertonic saline, the isotonic saline for several days, and now on a daily salt tablet started 04/23. Plan: We will continue with 1 salt tablet daily, and remove the salt restriction in her diet order. 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 She presented with a sodium of 126, and her sodium decreased to 124 then 119, despite being on isotonic NS. Therefore a urine sodium level was sent off and it was very high at 142. This indicates that she is not able to retain salt, or is retaining free water, consistent with SIADH. Her TSH is not high, ruling out hypothyroidism as the cause of SIADH. Her morning cortisol level was normal ruling out adrenal insufficiency. She was transferred to the ICU and received 1L of hypertonic saline several days ago. With that, the Na mala to 129 then dropped to 127 and isotonic NS was vazquez nued and a salt tablet daily was started. Na after that has been 130>> 132>> 131 today. Reason for SIADH is possibly her brain pathology, and a reset osmostat. Plan: Cont to monitor serum sodium every 12-24 h. Continue 1 salt tablet daily (4) Hx of completed stroke Assessment/Plan: The described that the patient had new onset of confusion in early Jan 2022, brought her to the ER, testing showed she had parainfluenza, no brain imaging was done. She was then seen by her PCP sometime later, no brain imaging was done. She was then seen by her Health Care Coach Dr Da Silva, and he did feel that she had sx suspicious for stroke and a brain MRI was ordered and done which by then was 2 to 3 months months out from the beginning of symptoms. It did show a stroke. She then saw a neurologist in March 2022. 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 She was ordered to get PT for balance and walking, Speech Therapy for cognitive therapy. The says that the patient refused to participate to do these. She has been able to function independently such as walk, feed herself and toilet herself. The brought in the office note from March [address] Tg Rosenthal and the impression was cognitive impairment after stroke. I reviewed these pages. Dr Rosenthal wanted a ZioPatch to check for Afib. The told me that was done and no A-fib was seen despite the patient having "palpitations". CT head done 04/21 in the ED was read as having "Left parietal-occipital encephalomalacia indicating prior infarct." MRI head done 04/21 in the ED was read as having "No acute ischemia. Encephalomalacia with surrounding T2 hyperintensity in the left posterior occipital region, seen on prior study but there is new central liquefaction. Impression: Evolving left parietal lobe infarct." When I spoke to her neurologist, Dr. Tg Rosenthal, and read her these findings, Dr. Rosenthal felt they were probably late effects of the same old stroke and not a new or more recent stroke in evolution, but recommended that I speak to Radiology to define what that meant. I contacted the Radiology reader, Dr Jazlyn Park and discussed those findings of "liquifaction". Dr Park said that is the normal progression of an old stroke, which will eventually turn into a "hole" where the stroke damaged the brain. Dr Rosenthal advised she have a CTA head and neck which were completed yesterday 04/23>> reported to have 50% L internal carotid stenosis, same stroke that was previously described. An Echo was done 04/23, it showed normal LVEF, mild diastolic dysfunction, no clot seen, but there was no bubble study done to check for intra-cardiac shunt. No LP is planned, we resumed her Plavix 75 mg p.o. daily Plan: According to the neurology office visit note from 1 mo ago, her neurologist ordered an Echo w/Bubble study to be done as an outpatient, and that had not yet been done. An Echo was done here 04/23 (), but it had no bubble study. I re- ordered the bubble study (but we have no Echo service Wed, Sat, Wed, Mon). Continue telemetry, monitoring for Afib. Speech Therapy, PT and OT to continue to work with her. Recommendations are for more PT, OT, ST with Home Health And returning home to live alone will not be safe because of her very poor cognition. Her boyfriend Xavier had moved in to her house, since the stroke 5 mos ago. PAVEL and I advised Xavier he will need to hire extra caregivers and resources were provided by PAVEL. (5) PVD Her CTA head and neck done here 04/23, showed a 50% L internal carotid stenosis. Plan: Plavix has been restarted (since no LP is planned). We will assure that she is getting good LDL cholesterol control, chol was checked and she is on Atorvastatin (6) HTN She has been running systolic BP 150-170 here. At home she took lisinopril, minipress and propranolol We resumed the lisinopril, with holding parameters We did not resume propranolol which has a very short half-life. Started new metoprolol tartrate, started yesterday Plan: Cont prn iv Hydralazine if BP rises excessively Continue Metoprolol, will switch to Succinate for once daily dosing. Cont the resumed home dose of Minipress (7) DM type 2 (diabetes mellitus, type 2) Assessment/Plan: This patient was on glipizide and metformin at home, no insulin. Her A1c came back at 7.7 Plan: A carb-controlled diet has been ordered ST is working with her (8) Tachycardia Resolved When doing rehab 04/23, her heart rate went from 88 to 110 while sitting, trying to eat solid foods. The therapist thought it was from being frustrated. Also the patient was on propranolol at home which she was not on it here. She was started on Metoprolol tartrate 25 twice daily and not Propranolol due to its short half-life. Plan: Continue telemetry. Continue Metoprolol, will switch to Succinate for once daily dosing. - Current Meds Current Meds: Current Medications Generic Name Dose Route Start Last Admin Trade Name Donna PRN Reason Stop Dose Admin Ascorbic Acid 500 mg 04/22/22 09:00 04/25/22 08:20 Ascorbic Acid 500 Mg Tablet PO 500 mg DAILY LISHA Administration Aspirin 81 mg 04/22/22 09:00 04/25/22 08:20 Aspirin Ec 81 Mg Tablet PO 81 mg DAILY LISHA Administration Atorvastatin Calcium 30 mg 04/22/22 21:00 04/24/22 20:57 Atorvastatin 10 Mg Tablet PO 30 mg QPM LISHA Administration Calcium Carbonate/Glycine 500 mg 04/25/22 09:00 04/25/22 08:42 Calcium Carbonate Chew 500 Mg Tablet PO 500 mg BID LISHA Administration Clopidogrel Bisulfate 75 mg 04/24/22 09:00 04/25/22 08:21 Clopidogrel 75 Mg Tablet PO 75 mg DAILY LISHA Administration Insulin Human Lispro 2 - 10 unit 04/24/22 12:00 04/25/22 08:41 Insulin Lispro 300 Unit/3 Ml Pen SUBQ 2 unit 0800,1200,1700,2100 LISHA Administration Protocol Lisinopril 20 mg 04/24/22 09:00 04/25/22 08:20 Lisinopril 20 Mg Tablet PO 20 mg DAILY LISHA Administration Metformin HCl 1,000 mg 04/24/22 17:00 04/25/22 08:21 Metformin 500 Mg Tablet PO 1,000 mg BIDWM LISHA Administration Metoprolol Tartrate 25 mg 04/23/22 12:00 04/25/22 08:20 Metoprolol Tartrate 25 Mg Tablet PO 25 mg BID LISHA Administration Multi-Ingredient Ointment 1 applic 04/23/22 19:23 04/25/22 04:36 Zinc Oxide 20% Oint 30 Gm Tube TOP 1 applic PRN PRN Administration Skin Care Multivitamins/Folic Acid/Vitamin C 15 ml 04/22/22 11:00 04/25/22 08:23 Multivitamin W/Iron, Minerals 15 Ml PO 15 ml DAILY LISHA Administration Nystatin 1 applic 04/22/22 21:00 04/25/22 08:41 Nystatin Powder 15 Gm TOP 1 applic BID LISHA Administration Ondansetron HCl 4 mg 04/21/22 21:57 04/23/22 16:14 Ondansetron Odt 4 Mg Tablet TL 4 mg Q6HR PRN Administration Nausea / Vomiting Polyethylene Glycol 17 gm 04/25/22 09:00 04/25/22 08:18 Polyethylene Glycol 3350 17 Gm Packet PO 17 gm DAILY LISHA Administration Prazosin HCl 4 mg 04/24/22 21:00 04/25/22 08:19 Prazosin 1 Mg Capsule PO 4 mg BID LISHA Administration Sodium Chloride 10 ml 04/21/22 21:57 04/25/22 04:36 Sodium Chloride Flush 0.9% 10 Ml Syringe IVP 10 ml PRN PRN Administration NEEDED PER PROVIDER ORDERS Sodium Chloride 10 ml 04/22/22 01:00 04/25/22 08:42 Sodium Chloride Flush 0.9% 10 Ml Syringe IVP 10 ml 0100,0900,1700 LISHA Administration Sodium Chloride 1 gm 04/23/22 17:39 04/25/22 08:20 Sodium Chloride 1 Gm Tablet PO 1 gm DAILY LISHA Administration - Lab Result Fish Bone Diagrams: 04/23/22 05:36 04/28/22 05:31 - Additional Planning My Orders: My Active Orders 04/24/22 12:30 Echo Limited w/Bubble Study [ECHO] Routine 04/24/22 17:00 metFORMIN [Glucophage] 1,000 mg PO BIDWM 04/24/22 21:00 Prazosin [Minipress] 4 mg PO BID 04/25/22 Breakfast Carb-controlled Diet [DIET] 04/25/22 09:00 Calcium Carbonate [Tums] 500 mg PO BID polyethylene glycoL 3350 [Miralax] 17 gm PO DAILY 04/25/22 17:00 SODIUM [CHEM] Timed 04/26/22 05:00 BMP - BASIC METABOLIC PANEL [CHEM] DAILYLAB MAGNESIUM [CHEM] DAILYLAB PHOSPHORUS [CHEM] DAILYLAB 04/27/22 05:00 BMP - BASIC METABOLIC PANEL [CHEM] DAILYLAB 04/28/22 05:00 BMP - BASIC METABOLIC PANEL [CHEM] DAILYLAB Subjective - Subjective Patient Reports: Resting Comfortably, No Complaints Nursing Reports: Other (Needs repeat cueing 3-5 times regarding 1 set of instructions, and cannot remember what was told to her just 5 minutes previously. She refused to work with PT today but after 3 times offering PT, she did, and cooperated and walked in the hallway w/ walker) Objective Vital Signs: Vital Signs - 24 hr 04/24/22 04/24/22 04/24/22 16:57 20:06 20:58 Temperature 37.2 C 37.1 C Heart Rate [ 84 77 Monitoring electrodes] Respiratory 17 17 Rate Blood Pressure 142/59 H Blood Pressure 155/61 H 160/64 H [Right Brachial artery] O2 Saturation 97 99 04/25/22 04/25/22 04/25/22 00:55 04:07 08:20 Temperature 36.7 C 36.7 C Heart Rate [ 84 77 Monitoring electrodes] Respiratory 19 12 Rate Blood Pressure 137/88 H Blood Pressure 130/52 L 134/54 H [Right Brachial artery] O2 Saturation 97 97 04/25/22 04/25/22 08:22 11:45 Temperature 37.1 C 36.6 C Heart Rate [ 84 74 Monitoring electrodes] Respiratory 11 L 14 Rate Blood Pressure Blood Pressure 137/88 H 104/48 L [Right Brachial artery] O2 Saturation 96 98 Oxygen O2 Source [With Activity] Room air O2 Source Room air I&O (Last 24 Hrs): Intake and Output Totals x24h 04/23/22 04/24/22 04/25/22 23:59 23:59 23:59 Intake Total 3822.916 3257.917 990 Output Total 2165 1440 620 Balance 2163.762 6129.917 370 General: Alert, No acute distress HEENT: Atraumatic, Other (Rosacea flushing of cheeks and nose) Neck: Supple Neuro: Alert, Disoriented, Non Focal, Other (very poor short term memory.) Cardiovascular: Regular rate, No murmurs Respiratory: No respiratory distress, Breath sounds nml Abdomen: Normal bowel sounds, Soft, No tenderness Extremities: No clubbing, No edema, No tenderness/swelling - Results Results: Laboratory Results WBC 6.6 x10^3/uL (4.8-10.8) 04/23/22 05:36 RBC 3.53 10^6/uL (4.20-5.40) L 04/23/22 05:36 Hgb 11.9 g/dL (12.0-16.0) L 04/23/22 05:36 Hct 33.3 % (37.0-47.0) L 04/23/22 05:36 MCV 94.3 fL (81.0-99.0) 04/23/22 05:36 MCH 33.7 pg (27.0-31.0) H 04/23/22 05:36 MCHC 35.7 g/dL (32.0-36.0) 04/23/22 05:36 RDW 13.0 % (12.0-15.0) 04/23/22 05:36 Plt Count 202 10^3/uL (130-450) 04/23/22 05:36 MPV 9.4 fL (7.9-10.8) 04/23/22 05:36 Neut # (Auto) 4.2 10^3/uL (1.5-6.6) 04/23/22 05:36 Lymph # (Auto) 1.2 10^3/uL (1.5-3.5) L 04/23/22 05:36 Dare # (Auto) 1.2 10^3/uL (0.0-1.0) H 04/23/22 05:36 Eos # (Auto) 0.0 10^3/uL (0.0-0.7) 04/23/22 05:36 Baso # (Auto) 0.0 10^3/uL (0.0-0.1) 04/23/22 05:36 Absolute Nucleated RBC 0.00 x10^3/uL 04/23/22 05:36 Nucleated RBC % 0.0 /100WBC 04/23/22 05:36 PT 12.7 secs (9.9-12.6) H 04/22/22 13:14 INR 1.1 (0.8-1.2) 04/22/22 13:14 VBG pH 7.474 (7.31-7.41) H 04/24/22 05:18 Ionized Calcium 1.01 mmol/L (1.15-1.33) L 04/24/22 05:18 Sodium 131 mmol/L (135-145) L 04/25/22 04:30 Potassium 3.9 mmol/L (3.5-5.0) 04/25/22 04:30 Chloride 99 mmol/L (101-111) L 04/25/22 04:30 Carbon Dioxide 25 mmol/L (21-32) 04/25/22 04:30 Anion Gap 7.0 (6-13) 04/25/22 04:30 BUN 10 mg/dL (6-20) 04/25/22 04:30 Creatinine 0.5 mg/dL (0.4-1.0) 04/25/22 04:30 Estimated GFR (MDRD) 118 (>89) 04/25/22 04:30 Glucose 170 mg/dL (70-100) H 04/25/22 04:30 POC Whole Bld Glucose 218 mg/dL (70 - 100) H 04/25/22 11:46 Estimat Average Glucose 174 mg/dL (70-100) H 04/23/22 05:36 Hemoglobin A1c % 7.7 % (4.27-6.07) H 04/23/22 05:36 Calcium 7.8 mg/dL (8.5-10.3) L 04/25/22 04:30 Phosphorus 2.4 mg/dL (2.5-4.6) L 04/25/22 04:30 Magnesium 1.8 mg/dL (1.7-2.8) 04/25/22 04:30 Total Bilirubin 0.6 mg/dL (0.2-1.0) 04/21/22 12:26 AST 18 IU/L (10-42) 04/21/22 12:26 ALT 15 IU/L (10-60) 04/21/22 12:26 Alkaline Phosphatase 52 IU/L (42-121) 04/21/22 12:26 Ammonia 12.8 umol/L (7-35) 04/21/22 21:54 Total Protein 6.7 g/dL (6.7-8.2) 04/21/22 12:26 Albumin 3.5 g/dL (3.2-5.5) 04/21/22 12:26 Globulin 3.2 g/dL (2.1-4.2) 04/21/22 12:26 Albumin/Globulin Ratio 1.1 (1.0-2.2) 04/21/22 12:26 Triglycerides 39 mg/dL (-149) 04/23/22 07:52 Cholesterol 153 mg/dL (-199) 04/23/22 07:52 LDL Cholesterol, Calc Not Reportable 04/23/22 07:52 VLDL Cholesterol Not Reportable 04/23/22 07:52 HDL Cholesterol 83 mg/dL (60-) 04/23/22 07:52 LDL/HDL Ratio Not Reportable 04/23/22 07:52 Cholesterol/HDL Ratio 1.8 (<4.4) 04/23/22 07:52 Lipase 36 U/L (22-51) 04/21/22 12:26 TSH 0.62 uIU/mL (0.34-5.60) 04/21/22 21:15 Cortisol AM Sample 11.1 ug/dL 04/23/22 07:52 Urine Color YELLOW 04/21/22 16:02 Urine Clarity CLEAR (CLEAR) 04/21/22 16:02 Urine pH 8.0 PH (5.0-7.5) H 04/21/22 16:02 Ur Specific [place] 1.015 (1.002-1.030) 04/21/22 16:02 Urine Protein NEGATIVE mg/dL (NEGATIVE) 04/21/22 16:02 Urine Glucose (UA) NEGATIVE mg/dL (NEGATIVE) 04/21/22 16:02 Urine Ketones NEGATIVE mg/dL (NEGATIVE) 04/21/22 16:02 Urine Occult Blood NEGATIVE (NEGATIVE) 04/21/22 16:02 Urine Nitrite NEGATIVE (NEGATIVE) 04/21/22 16:02 Urine Bilirubin NEGATIVE (NEGATIVE) 04/21/22 16:02 Urine Urobilinogen 0.2 (NORMAL) E.U./dL (NORMAL) 04/21/22 16:02 Ur Leukocyte Esterase NEGATIVE (NEGATIVE) 04/21/22 16:02 Ur Microscopic Review NOT INDICATED 04/21/22 16:02 Urine Culture Comments NOT INDICATED 04/21/22 16:02 Urine Sodium 142.0 mmol/L 04/22/22 10:16 Nasal Adenovirus (PCR) NOT DETECTED 04/21/22 21:15 Nasal B. parapertussis DNA (PCR) NOT DETECTED 04/21/22 21:15 Nasal Coronavir 229E PCR NOT DETECTED 04/21/22 21:15 Nasal Coronavir HKU1 PCR NOT DETECTED 04/21/22 21:15 Nasal Coronavir NL63 PCR NOT DETECTED 04/21/22 21:15 Nasal Coronavir OC43 PCR NOT DETECTED 04/21/22 21:15 Nasal Enterovir/Rhinovir PCR NOT DETECTED 04/21/22 21:15 Nasal Influenza B PCR NOT DETECTED 04/21/22 21:15 Nasal Influenza A PCR NOT DETECTED 04/21/22 21:15 Nasal Parainfluen 1 PCR NOT DETECTED 04/21/22 21:15 Nasal Parainfluen 2 PCR NOT DETECTED 04/21/22 21:15 Nasal Parainfluen 3 PCR NOT DETECTED 04/21/22 21:15 Nasal Parainfluen 4 PCR NOT DETECTED 04/21/22 21:15 Nasal RSV (PCR) NOT DETECTED 04/21/22 21:15 Nasal Screen MRSA (PCR) NEGATIVE (NEGATIVE) 04/22/22 13:20 Nasal B.pertussis DNA PCR NOT DETECTED 04/21/22 21:15 Nasal C.pneumoniae (PCR) NOT DETECTED 04/21/22 21:15 [place] Human Metapneumo PCR NOT DETECTED 04/21/22 21:15 Nasal M.pneumoniae (PCR) NOT DETECTED 04/21/22 21:15 Nasal SARS-CoV-2 (PCR) NOT DETECTED 04/21/22 21:15 Salicylates < 6.0 mg/dL 04/21/22 21:15 Urine Opiates Screen NEGATIVE (NEGATIVE) 04/21/22 16:02 Ur Oxycodone Screen NEGATIVE (NEGATIVE) 04/21/22 16:02 Urine Methadone Screen NEGATIVE (NEGATIVE) 04/21/22 16:02 Ur Propoxyphene Screen NEGATIVE (NEGATIVE) 04/21/22 16:02 Acetaminophen < 10 ug/mL (10-30) L 04/21/22 21:15 Ur Barbiturates Screen NEGATIVE (NEGATIVE) 04/21/22 16:02 Ur Tricyclics Screen NEGATIVE (NEGATIVE) 04/21/22 16:02 Ur Phencyclidine Scrn NEGATIVE (NEGATIVE) 04/21/22 16:02 Ur Amphetamine Screen NEGATIVE (NEGATIVE) 04/21/22 16:02 U Methamphetamines Scrn NEGATIVE (NEGATIVE) 04/21/22 16:02 U Benzodiazepines Scrn NEGATIVE (NEGATIVE) 04/21/22 16:02 Urine Cocaine Screen NEGATIVE (NEGATIVE) 04/21/22 16:02 U Cannabinoids Screen NEGATIVE (NEGATIVE) 04/21/22 16:02 Ethyl Alcohol < 5.0 mg/dL 04/21/22 21:15 - Procedures Procedures: Procedures EXCISION OF DUODENUM, ENDO, DIAGN (08/24/19) EXCISION OF ESOPHAGUS, ENDO, DIAGN (08/24/19) EXCISION OF STOMACH, ENDO, DIAGN (08/24/19)
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
[2022-04-25] MEDS: ATORVASTATIN 10 MG TABLET PO SCH (20:37)
[2022-04-26 05:33] LABS: CALCIUM 8.5 mg/dL (8.5-10.3); CREATININE 0.5 mg/dL (0.4-1.0); MAGNESIUM 1.6 mg/dL (1.7-2.8); POTASSIUM 4.3 mmol/L (3.5-5.0)
[2022-04-26] MEDS: lisinopriL 20 MG TABLET PO SCH (07:58)
[2022-04-26] MEDS: CLOPIDOGREL 75 MG TABLET PO SCH (07:58)
[2022-04-26] MEDS: SODIUM CHLORIDE 1 GM TABLET PO SCH (07:58)
[2022-04-26] MEDS: CALCIUM CARBONATE CHEW 500 MG TABLET PO SCH ×2 (07:58→20:51)
[2022-04-26] MEDS: METOPROLOL TARTRATE 25 MG TABLET PO SCH ×2 (07:58→20:49)
[2022-04-26] MEDS: ASCORBIC ACID 500 MG TABLET PO SCH (07:58)
[2022-04-26] MEDS: ASPIRIN EC 81 MG TABLET PO SCH (07:59)
[2022-04-26] MEDS: metFORMIN 500 MG TABLET PO SCH ×2 (07:59→16:56)
[2022-04-26] MEDS: polyethylene glycoL 3350 17 GM PACKET PO SCH (07:59)
[2022-04-26] MEDS: SODIUM CHLORIDE FLUSH 0.9% 10 ML SYRINGE IVP SCH ×3 (08:00→20:55)
[2022-04-26] MEDS: NYSTATIN POWDER 15 GM TOP SCH ×2 (08:00→20:54)
[2022-04-26] MEDS: INSULIN LISPRO 300 UNIT/3 ML PEN SUBQ SCH ×4 (08:05→20:52)
[2022-04-26] MEDS: MULTIVITAMIN W/IRON, MINERALS 15 ML PO SCH (08:05)
[2022-04-26] MEDS: PRAZOSIN 1 MG CAPSULE PO SCH ×2 (08:53→20:51)
[2022-04-26] MEDS: MAGNESIUM OXIDE 400 MG TABLET PO SCH (12:37)
--- NOTE | 2022-04-26 17:52 | PROVIDER PROGRESS NOTE ---
Assessment/Plan - Problem List (1) Confusion Assessment/Plan: Her confusion and her somnolence are much better than the somnolence we saw the first 2 days. 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 Tg Rosenthal, at [facility] ([phone]) on 04/22. Dr. Rosenthal thinks this could also be confusion from a new infection and recommended work-up for infection. Her nasal swab for all viruses was negative on admission, and no signs of PNA or UTI or meningitis. Dr Rosenthal also advised a CTA head and neck which were completed 04/23>> it showed a 50% L internal carotid stenosis, and same stroke that was previously described on CT and MRI. No LP is planned, so we resumed her Plavix 75 mg p.o. daily Plan: Continue managing the hyponatremia PT, ST and OT to continue. Her walking, her balance and ADLs are not bad, but she has extremely poor short-term memory and needs continued repetitive cuing. Returning home to live alone will not be safe because of her very poor cognition. Her boyfriend Xavier had moved in since the stroke 5 mos ago. PAVEL and I advised Xavier he will need to hire extra caregivers and resources were provided by PAVEL. (2) Hyponatremia Assessment/Plan: Improving. All labs were reviewed. Patient has a "history of low sodium", unknown for what period of time, or what was the cause. Xavier, her S.O. said she was never treated with salt tablets but she did salt her food freely. She was not drinkng excessive free water or have potomania, like a tea and toast diet, to consider hemodilution.. She had a stroke 5 months ago. No history of subarachnoid hemorrhage though, which could then be the cause of "central salt wasting". She is not hyperglycemic would have caused pseudohyponatremia. Serum sodium level has slowly improved, after iv hypertonic saline, the isotonic saline for several days, and now on a daily salt tablet started 04/23. Plan: We will continue with 1 salt tablet daily, and remove the salt restriction in her diet order. 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 She presented with a sodium of 126, and her sodium decreased to 124 then 119, despite being on isotonic NS. Therefore a urine sodium level was sent off and it was very high at 142. This indicates that she is not able to retain salt, or is retaining free water, consistent with SIADH. Her TSH is not high, ruling out hypothyroidism as the cause of SIADH. Her morning cortisol level was normal ruling out adrenal insufficiency. She was transferred to the ICU and received 1L of hypertonic saline several days ago. With that, the Na mala to 129 then dropped to 127 and isotonic NS was vazquez nued and a salt tablet daily was started. Na after that has been 130>> 132>> 131 today. Reason for SIADH is possibly her brain pathology, and a reset osmostat. Plan: Cont to monitor serum sodium every 12-24 h. Continue 1 salt tablet daily (4) Hx of completed stroke Assessment/Plan: The boyfriend described that the patient had new onset of confusion in early Jan 2022, brought her to the ER, testing showed she had parainfluenza, no brain imaging was done. She was then seen by her PCP sometime later, no brain imaging was done. She was then seen by her Decontamination Technician Dr Da Silva, and he did feel that she had sx suspicious for stroke and a brain MRI was ordered and done which by then was 2 to 3 months months out from the beginning of symptoms. It did sh ow a stroke. She then saw a neurologist in March 2022. 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 She was ordered to get PT for balance and walking, Speech Therapy for cognitive therapy. The says that the patient refused to participate to do these. She has been able to function independently such as walk, feed herself and toilet herself. The boyfriend brought in the office note from March [address] Tg Rosenthal and the impression was cognitive impairment after stroke. I reviewed these pages. Dr Rosenthal wanted a ZioPatch to check for Afib. The told me that was done and no A-fib was seen despite the patient having "palpitations". CT head done 04/21 in the ED was read as having "Left parietal-occipital encephalomalacia indicating prior infarct." MRI head done 04/21 in the ED was read as having "No acute ischemia. Encephalomalacia with surrounding T2 hyperintensity in the left posterior occ ipital region, seen on prior study but there is new central liquefaction. Impression: Evolving left parietal lobe infarct." When I spoke to her neurologist, Dr. Tg Rosenthal, and read her these findings, Dr. Rosenthal felt they were probably late effects of the same old stroke and not a new or more recent stroke in evolution, but recommended that I speak to Radiology to define what that meant. I contacted the Radiology reader, Dr Jazlyn Park and discussed those findings of "liquifaction". Dr Park said that is the normal progression of an old stroke, which will eventually turn into a "hole" where the stroke damaged the brain. Dr Rosenthal advised she have a CTA head and neck which were completed yesterday 04/23>> reported to have 50% L internal carotid stenosis, same stroke that was previously described. An Echo was done 04/23, it showed normal LVEF, mild diastolic dysfunction, no clot seen, but there was no bubble study done to check for intra-cardiac shunt. No LP is planned, we resumed her Plavix 75 mg p.o. daily Plan: According to the neurology office visit note from 1 mo ago, her neurologist ordered an Echo w/Bubble study to be done as an outpatient, and that had not yet been done. An Echo was done here 04/23 (), but it had no bubble study. I re- ordered the bubble study (but we have no Echo service Fri, Sat, Sun, Mon). Continue telemetry, monitoring for Afib. Speech Therapy, PT and OT to continue to work with her. Recommendations are for more PT, OT, ST with Home Health And returning home to live alone will not be safe because of her very poor cognition. Her boyfriend Xavier had moved in to her house, since the stroke 5 mos ago. PAVEL and I advised Xavier he will need to hire extra caregivers and resources were provided by PAVEL. (5) PVD Her CTA head and neck done here 04/23, showed a 50% L internal carotid stenosis. Plan: Plavix has been restarted (since no LP is planned). We will assure that she is getting good LDL cholesterol control, chol was check ed and she is on Atorvastatin (6) HTN She has been running systolic BP 150-170 here. At home she took lisinopril, minipress and propranolol We resumed the lisinopril, with holding parameters We did not resume propranolol which has a very short half-life. Started new metoprolol tartrate, started yesterday Plan: Cont prn iv Hydralazine if BP rises excessively Continue Metoprolol, will switch to Succinate for once daily dosing. Cont the resumed home dose of Minipress (7) DM type 2 (diabetes mellitus, type 2) Assessment/Plan: This patient was on glipizide and metformin at home, no insulin. Her A1c came back at 7.7 Plan: A carb-controlled diet has been ordered ST is working with her (8) Tachycardia Resolved When doing rehab 04/23, her heart rate went from 88 to 110 while sitting, trying to eat solid foods. The therapist thought it was from being frustrated. Also the patient was on propranolol at home which she was not on it here. She was started on Metoprolol tartrate 25 twice daily and not Propranolol due to its short half-life. Plan: Continue telemetry. Continue Metoprolol, switched to Succinate for once daily dosing. - Current Meds Current Meds: Current Medications Generic Name Dose Route Start Last Admin Trade Name Donna PRN Reason Stop Dose Admin Ascorbic Acid 500 mg 04/22/22 09:00 04/26/22 07:58 Ascorbic Acid 500 Mg Tablet PO 500 mg DAILY LISHA Administration Aspirin 81 mg 04/22/22 09:00 04/26/22 07:59 Aspirin Ec 81 Mg Tablet PO 81 mg DAILY LISHA Administration Atorvastatin Calcium 30 mg 04/22/22 21:00 04/25/22 20:37 Atorvastatin 10 Mg Tablet PO 30 mg QPM LISHA Administration Calcium Carbonate/Glycine 500 mg 04/25/22 09:00 04/26/22 07:58 Calcium Carbonate Chew 500 Mg Tablet PO 500 mg BID LISHA Administration Clopidogrel Bisulfate 75 mg 04/24/22 09:00 04/26/22 07:58 Clopidogrel 75 Mg Tablet PO 75 mg DAILY LISHA Administration Insulin Human Lispro 3 - 11 unit 04/25/22 21:00 04/26/22 16:55 Insulin Lispro 300 Unit/3 Ml Pen SUBQ 7 unit 0800,1200,1700,2100 LISHA Administration Protocol Lisinopril 20 mg 04/24/22 09:00 04/26/22 07:58 Lisinopril 20 Mg Tablet PO 20 mg DAILY LISHA Administration Magnesium Oxide 400 mg 04/26/22 13:00 04/26/22 12:37 Magnesium Oxide 400 Mg Tablet PO 04/28/22 00:01 400 mg DAILYWM LISHA Administration Metformin HCl 1,000 mg 04/24/22 17:00 04/26/22 16:56 Metformin 500 Mg Tablet PO 1,000 mg BIDWM LISHA Administration Metoprolol Tartrate 25 mg 04/23/22 12:00 04/26/22 07:58 Metoprolol Tartrate 25 Mg Tablet PO 25 mg BID LISHA Administration Multi-Ingredient Ointment 1 applic 04/23/22 19:23 04/25/22 20:39 Zinc Oxide 20% Oint 30 Gm Tube TOP 1 applic PRN PRN Administration Skin Care Multivitamins/Folic Acid/Vitamin C 15 ml 04/22/22 11:00 04/26/22 08:05 Multivitamin W/Iron, Minerals 15 Ml PO 15 ml DAILY LISHA Administration Nystatin 1 applic 04/22/22 21:00 04/26/22 08:00 Nystatin Powder 15 Gm TOP 1 applic BID LISHA Administration Ondansetron HCl 4 mg 04/21/22 21:57 04/23/22 16:14 Ondansetron Odt 4 Mg Tablet TL 4 mg Q6HR PRN Administration Nausea / Vomiting Polyethylene Glycol 17 gm 04/25/22 09:00 04/26/22 07:59 Polyethylene Glycol 3350 17 Gm Packet PO 17 gm DAILY LISHA Administration Prazosin HCl 4 mg 04/24/22 21:00 04/26/22 08:53 Prazosin 1 Mg Capsule PO 4 mg BID LISHA Administration Sodium Chloride 10 ml 04/21/22 21:57 04/25/22 04:36 Sodium Chloride Flush 0.9% 10 Ml Syringe IVP 10 ml PRN PRN Administration NEEDED PER PROVIDER ORDERS Sodium Chloride 10 ml 04/22/22 01:00 04/26/22 17:00 Sodium Chloride Flush 0.9% 10 Ml Syringe IVP 10 ml 0100,0900,1700 LISHA Administration Sodium Chloride 1 gm 04/23/22 17:39 04/26/22 07:58 Sodium Chloride 1 Gm Tablet PO 1 gm DAILY LISHA Administration - Lab Result Fish Bone Diagrams: 03/09/23 05:36 04/28/22 05:31 - Additional Planning My Orders: My Active Orders 04/25/22 21:00 Insulin Lispro [Humalog Kwikpen U-100] 3 - 11 unit SUBQ 0800,1200,1700,2100 04/26/22 Home Health Referral [CONS] Routine 04/26/22 13:00 Magnesium Oxide [Mag Ox] 400 mg PO DAILYWM 04/27/22 05:00 BMP - BASIC METABOLIC PANEL [CHEM] DAILYLAB 04/28/22 05:00 BMP - BASIC METABOLIC PANEL [CHEM] DAILYLAB Subjective - Subjective Patient Reports: Resting Comfortably, No Complaints Objective Vital Signs: Vital Signs - 24 hr 04/25/22 04/25/22 04/26/22 20:37 20:40 00:36 Temperature 37.0 C 36.7 C Heart Rate [ 81 84 Monitoring electrodes] Respiratory 18 16 Rate Blood Pressure 146/61 H Blood Pressure 146/61 H 132/75 H [Right Brachial artery] O2 Saturation 99 96 04/26/22 04/26/22 04/26/22 04:33 07:58 08:12 Temperature 36.7 C 36.8 C Heart Rate [ 81 85 Monitoring electrodes] Respiratory 14 14 Rate Blood Pressure 155/64 H Blood Pressure 155/63 H 155/64 H [Right Brachial artery] O2 Saturation 96 98 04/26/22 04/26/22 12:04 16:08 Temperature 36.9 C 36.5 C Heart Rate [ 77 78 Monitoring electrodes] Respiratory 16 16 Rate Blood Pressure Blood Pressure 126/55 L 153/64 H [Right Brachial artery] O2 Saturation 98 98 Oxygen O2 Source [With Activity] Room air O2 Source Room air I&O (Last 24 Hrs): Intake and Output Totals x24h 04/24/22 04/25/22 04/27/22 23:59 23:59 00:59 Intake Total 3257.917 1815 570 Output Total 3457 155 9523 Balance 1817.917 945 -1330 General: Alert, No acute distress HEENT: EOMI Neck: Supple Neuro: Alert, Disoriented, Other (Poor memory) Cardiovascular: Regular rate Respiratory: No respiratory distress Abdomen: Soft, No tenderness Extremities: No clubbing, No edema, No tenderness/swelling - Results Results: Laboratory Results WBC 6.6 x10^3/uL (4.8-10.8) 04/23/22 05:36 RBC 3.53 10^6/uL (4.20-5.40) L 04/23/22 05:36 Hgb 11.9 g/dL (12.0-16.0) L 04/23/22 05:36 Hct 33.3 % (37.0-47.0) L 04/23/22 05:36 MCV 94.3 fL (81.0-99.0) 04/23/22 05:36 MCH 33.7 pg (27.0-31.0) H 04/23/22 05:36 MCHC 35.7 g/dL (32.0-36.0) 04/23/22 05:36 RDW 13.0 % (12.0-15.0) 04/23/22 05:36 Plt Count 202 10^3/uL (130-450) 04/23/22 05:36 MPV 9.4 fL (7.9-10.8) 04/23/22 05:36 Neut # (Auto) 4.2 10^3/uL (1.5-6.6) 04/23/22 05:36 Lymph # (Auto) 1.2 10^3/uL (1.5-3.5) L 04/23/22 05:36 Kimball # (Auto) 1.2 10^3/uL (0.0-1.0) H 04/23/22 05:36 Eos # (Auto) 0.0 10^3/uL (0.0-0.7) 04/23/22 05:36 Baso # (Auto) 0.0 10^3/uL (0.0-0.1) 04/23/22 05:36 Absolute Nucleated RBC 0.00 x10^3/uL 04/23/22 05:36 Nucleated RBC % 0.0 /100WBC 04/23/22 05:36 PT 12.7 secs (9.9-12.6) H 04/22/22 13:14 INR 1.1 (0.8-1.2) 04/22/22 13:14 VBG pH 7.474 (7.31-7.41) H 04/24/22 05:18 Ionized Calcium 1.01 mmol/L (1.15-1.33) L 04/24/22 05:18 Sodium 132 mmol/L (135-145) L 04/26/22 16:50 Potassium 4.3 mmol/L (3.5-5.0) 04/26/22 04:46 Chloride 98 mmol/L (101-111) L 04/26/22 04:46 Carbon Dioxide 26 mmol/L (21-32) 04/26/22 04:46 Anion Gap 8.0 (6-13) 04/26/22 04:46 BUN 12 mg/dL (6-20) 04/26/22 04:46 Creatinine 0.5 mg/dL (0.4-1.0) 04/26/22 04:46 Estimated GFR (MDRD) 118 (>89) 04/26/22 04:46 Glucose 136 mg/dL (70-100) H 04/26/22 04:46 POC Whole Bld Glucose 241 mg/dL (70 - 100) H 04/26/22 16:26 Estimat Average Glucose 174 mg/dL (70-100) H 04/23/22 05:36 Hemoglobin A1c % 7.7 % (4.27-6.07) H 04/23/22 05:36 Calcium 8.5 mg/dL (8.5-10.3) 04/26/22 04:46 Phosphorus 3.0 mg/dL (2.5-4.6) 04/26/22 04:46 Magnesium 1.6 mg/dL (1.7-2.8) L 04/26/22 04:46 Total Bilirubin 0.6 mg/dL (0.2-1.0) 04/21/22 12:26 AST 18 IU/L (10-42) 04/21/22 12:26 ALT 15 IU/L (10-60) 04/21/22 12:26 Alkaline Phosphatase 52 IU/L (42-121) 04/21/22 12:26 Ammonia 12.8 umol/L (7-35) 04/21/22 21:54 Total Protein 6.7 g/dL (6.7-8.2) 04/21/22 12:26 Albumin 3.5 g/dL (3.2-5.5) 04/21/22 12:26 Globulin 3.2 g/dL (2.1-4.2) 04/21/22 12:26 Albumin/Globulin Ratio 1.1 (1.0-2.2) 04/21/22 12:26 Triglycerides 39 mg/dL (-149) 04/23/22 07:52 Cholesterol 153 mg/dL (-199) 04/23/22 07:52 LDL Cholesterol, Calc Not Reportable 04/23/22 07:52 VLDL Cholesterol Not Reportable 04/23/22 07:52 HDL Cholesterol 83 mg/dL (60-) 04/23/22 07:52 LDL/HDL Ratio Not Reportable 04/23/22 07:52 Cholesterol/HDL Ratio 1.8 (<4.4) 04/23/22 07:52 Lipase 36 U/L (22-51) 04/21/22 12:26 TSH 0.62 uIU/mL (0.34-5.60) 04/21/22 21:15 Cortisol AM Sample 11.1 ug/dL 04/23/22 07:52 Urine Color YELLOW 04/21/22 16:02 Urine Clarity CLEAR (CLEAR) 04/21/22 16:02 Urine pH 8.0 PH (5.0-7.5) H 04/21/22 16:02 Ur Specific [place] 1.015 (1.002-1.030) 04/21/22 16:02 Urine Protein NEGATIVE mg/dL (NEGATIVE) 04/21/22 16:02 Urine Glucose (UA) NEGATIVE mg/dL (NEGATIVE) 04/21/22 16:02 Urine Ketones NEGATIVE mg/dL (NEGATIVE) 04/21/22 16:02 Urine Occult Blood NEGATIVE (NEGATIVE) 04/21/22 16:02 Urine Nitrite NEGATIVE (NEGATIVE) 04/21/22 16:02 Urine Bilirubin NEGATIVE (NEGATIVE) 04/21/22 16:02 Urine Urobilinogen 0.2 (NORMAL) E.U./dL (NORMAL) 04/21/22 16:02 Ur Leukocyte Esterase NEGATIVE (NEGATIVE) 04/21/22 16:02 Ur Microscopic Review NOT INDICATED 04/21/22 16:02 Urine Culture Comments NOT INDICATED 04/21/22 16:02 Urine Sodium 142.0 mmol/L 04/22/22 10:16 Nasal Adenovirus (PCR) NOT DETECTED 04/21/22 21:15 Nasal B. parapertussis DNA (PCR) NOT DETECTED 04/21/22 21:15 Nasal Coronavir 229E PCR NOT DETECTED 04/21/22 21:15 Nasal Coronavir HKU1 PCR NOT DETECTED 04/21/22 21:15 Nasal Coronavir NL63 PCR NOT DETECTED 04/21/22 21:15 Nasal Coronavir OC43 PCR NOT DETECTED 04/21/22 21:15 Nasal Enterovir/Rhinovir PCR NOT DETECTED 04/21/22 21:15 Nasal Influenza B PCR NOT DETECTED 04/21/22 21:15 Nasal Influenza A PCR NOT DETECTED 04/21/22 21:15 Nasal Parainfluen 1 PCR NOT DETECTED 04/21/22 21:15 Nasal Parainfluen 2 PCR NOT DETECTED 04/21/22 21:15 Nasal Parainfluen 3 PCR NOT DETECTED 04/21/22 21:15 Nasal Parainfluen 4 PCR NOT DETECTED 04/21/22 21:15 Nasal RSV (PCR) NOT DETECTED 04/21/22 21:15 Nasal Screen MRSA (PCR) NEGATIVE (NEGATIVE) 04/22/22 13:20 Nasal B.pertussis DNA PCR NOT DETECTED 04/21/22 21:15 Nasal C.pneumoniae (PCR) NOT DETECTED 04/21/22 21:15 [place] Human Metapneumo PCR NOT DETECTED 04/21/22 21:15 Nasal M.pneumoniae (PCR) NOT DETECTED 04/21/22 21:15 Nasal SARS-CoV-2 (PCR) NOT DETECTED 04/21/22 21:15 Salicylates < 6.0 mg/dL 04/21/22 21:15 Urine Opiates Screen NEGATIVE (NEGATIVE) 04/21/22 16:02 Ur Oxycodone Screen NEGATIVE (NEGATIVE) 04/21/22 16:02 Urine Methadone Screen NEGATIVE (NEGATIVE) 04/21/22 16:02 Ur Propoxyphene Screen NEGATIVE (NEGATIVE) 04/21/22 16:02 Acetaminophen < 10 ug/mL (10-30) L 04/21/22 21:15 Ur Barbiturates Screen NEGATIVE (NEGATIVE) 04/21/22 16:02 Ur Tricyclics Screen NEGATIVE (NEGATIVE) 04/21/22 16:02 Ur Phencyclidine Scrn NEGATIVE (NEGATIVE) 04/21/22 16:02 Ur Amphetamine Screen NEGATIVE (NEGATIVE) 04/21/22 16:02 U Methamphetamines Scrn NEGATIVE (NEGATIVE) 04/21/22 16:02 U Benzodiazepines Scrn NEGATIVE (NEGATIVE) 04/21/22 16:02 Urine Cocaine Screen NEGATIVE (NEGATIVE) 04/21/22 16:02 U Cannabinoids Screen NEGATIVE (NEGATIVE) 04/21/22 16:02 Ethyl Alcohol < 5.0 mg/dL 04/21/22 21:15 - Procedures Procedures: Procedures EXCISION OF DUODENUM, ENDO, DIAGN (08/24/19) EXCISION OF ESOPHAGUS, ENDO, DIAGN (08/24/19) EXCISION OF STOMACH, ENDO, DIAGN (08/24/19)
[2022-04-26] MEDS: ATORVASTATIN 10 MG TABLET PO SCH (20:48)
[2022-04-27 05:27] LABS: CALCIUM 8.3 mg/dL (8.5-10.3); CREATININE 0.5 mg/dL (0.4-1.0); POTASSIUM 4.2 mmol/L (3.5-5.0)
--- NOTE | 2022-04-27 08:00 | Discharge Plan ---
Discharge Plan Problem Reviewed?: Yes Disposition: Home Health Service Condition: Fair Prescriptions: Sodium Chloride [Salt Tab] 1 gm PO DAILY #30 tab Metoprolol Succinate [Toprol Xl] 25 mg PO DAILY #30 tablet Diet: Diabetic Activity Restrictions: Activity as Tolerated Shower Restrictions: No Driving Restrictions: Yes Assistance Devices: Walker Weight Bearing: Full Weight Instruction Topics: Hyponatremia Dc Ch Health Concerns: The patient was hospitalized due to worsening confusion that was sudden, on top of confusion she has had for 5 months from her stroke. We found the cause to be a severely low serum sodium level. She has a condition called SIADH which makes her retain water but eliminate salt. She has been put on treatment with 1 salt tablet daily and this should continue. She may freely salt her food. Also medications have been adjusted for blood pressure. The patient is being discharged home today with a referral placed for a home health agency that will provide in-home Physical Therapy, Occupational Therapy, Speech Therapy for cognitive stimulation, an RN to check her vital signs and condition, and a bath aide to help with showering and her hygiene. Since she has refused PT and OT and Speech Therapy in the past, these therapies need to be promoted, because she has no capacity to make medical decisions for herself (with her diagnosis of Cognitive Impairment from her stroke), and refusing all therapies on her part, does not mean she will not cooperate with therapists, please tell them that. Patient now needs constant cueing regarding all activities, therefore she will need more caregiving and supervision than 1 person can probably do. Resources for hiring in-home caregivers have been provided to you. The patient should have a visit to her Primary Care Provider in the next 1 to 2 weeks and she need repeat blood testing to check her sodium level. She should also have follow-up with her Neurologist. Plan of Treatment: As above and follow the new list of medications that she should now be taking. As her cognition slowly worsens over time, I recommend that future plans should also be established, such as possible placement in a half-way care facility or residential. Also, establishing a legal DPOA is in her best interest. Xavier, you will have to seek legal billing analyst for this. Care Goals: Improvement in symptoms and stabilization are the goals. Assessment: Her significant-other, Xavier, understands and agrees with the plan. Additional Instructions or Follow Up instructions: If the patient has new or worsening symptoms, call her PCP or her neurologist for advice, or she should come to the ER. No Smoking: If you smoke, Please STOP! Call for help. Follow-up with: SHALA JACKSON ARNP [Physician No Access] -
[2022-04-27] MEDS: INSULIN LISPRO 300 UNIT/3 ML PEN SUBQ SCH ×4 (08:16→20:56)
[2022-04-27] MEDS: MAGNESIUM OXIDE 400 MG TABLET PO SCH (08:18)
[2022-04-27] MEDS: metFORMIN 500 MG TABLET PO SCH ×2 (08:18→17:13)
[2022-04-27] MEDS: SODIUM CHLORIDE 1 GM TABLET PO SCH (08:18)
[2022-04-27] MEDS: CALCIUM CARBONATE CHEW 500 MG TABLET PO SCH ×2 (08:18→20:56)
[2022-04-27] MEDS: ASPIRIN EC 81 MG TABLET PO SCH (08:18)
[2022-04-27] MEDS: SODIUM CHLORIDE FLUSH 0.9% 10 ML SYRINGE IVP SCH ×3 (08:19→23:34)
[2022-04-27] MEDS: ASCORBIC ACID 500 MG TABLET PO SCH (08:19)
[2022-04-27] MEDS: METOPROLOL TARTRATE 25 MG TABLET PO SCH ×2 (08:38→13:52)
[2022-04-27] MEDS: lisinopriL 20 MG TABLET PO SCH (08:38)
[2022-04-27] MEDS: CLOPIDOGREL 75 MG TABLET PO SCH (08:38)
[2022-04-27] MEDS: MULTIVITAMIN W/IRON, MINERALS 15 ML PO SCH (08:38)
[2022-04-27] MEDS: polyethylene glycoL 3350 17 GM PACKET PO SCH (08:41)
[2022-04-27] MEDS: NYSTATIN POWDER 15 GM TOP SCH ×2 (10:14→20:57)
[2022-04-27] MEDS: PRAZOSIN 1 MG CAPSULE PO SCH (10:22)
--- NOTE | 2022-04-27 11:59 | DISCHARGE SUMMARY ---
Discharge Summary Admit Date: 04/21/22 Discharge Date: 04/27/22 Discharging Provider: Dr Irena Sanchez Primary Care Provider: MAISHA Estrada Condition at Discharge: Fair Discharge Disposition: 06 Home Health Service - ALLERGIES Allergies/Adverse Reactions: Allergies Allergy/AdvReac Type Severity Reaction Status Date / Time NSAIDS (Non-Steroidal Allergy Respiratory Verified 04/21/22 11:59 Anti-Inflamma - MEDICATIONS Home Medications: Ambulatory Orders Medication Instructions Recorded Confirmed Metformin HCl 1,000 mg PO BIDWM 03/12/16 04/23/22 Simvastatin 60 mg PO QPM 03/12/16 04/22/22 glipiZIDE [Glipizide] 10 mg PO DAILY 03/12/16 04/22/22 Clopidogrel [Plavix] 75 mg PO DAILY 04/22/22 04/22/22 Sodium Chloride [Salt Tab] 1 gm PO DAILY #30 tab 04/27/22 Zinc Oxide 20% Oint [Zinc Oxide] 1 applic TOP PRN PRN each 04/27/22 Metoprolol Succinate [Toprol Xl] 50 mg PO DAILY #30 tablet 04/28/22 lisinopriL [Lisinopril] 10 mg PO DAILY #30 tablet 04/28/22 - LABS Result Diagrams: 04/23/22 05:36 04/28/22 05:31
--- NOTE | 2022-04-27 13:39 | PROVIDER PROGRESS NOTE ---
Assessment/Plan - Problem List (1) Orthostatic hypotension Assessment/Plan: The patient was to be discharged today. When physical therapy arrived to work with her today, to have her walk 3 stairs (because her bedroom is on the second floor), she complained of lightheadedness and "blurred vision" and "palpitations". Her sitting blood pressure at that point was measured and was 94/34 and HR 100 in sinus rhythm. She walked 5 steps to the chair only. When she was put back in bed,her blood pressure improved in a supine position to 120 systolic. I examined the patient and she appeared tired and was listless, not as communicative at this point. Plan: No discharge to home today We will give NS 1 L IV today We will adjust her blood pressure meds: stop Minipress that was resumed We will order her liquid hydration to be with Gatorade, I spoke to Migdalia Ojeda our air quality instrument specialist, who will see the boyfriend and discuss diet options We will order daily morning orthostatic blood pressure checks Continue telemetry She does need to pass a test to see if she can ambulate some stairs before she discharges This plan was communicated to the patient and her significant other at bedside and nurses. (2) Confusion Her confusion and her somnolence are much better than the somnolence we saw the first 2 days. 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 Tg Rosenthal, at [facility] ([id number]) on 04/22. Dr. Rosenthal thinks this could also be confusion from a new infection and recommended work-up for infection. Her nasal swab for all viruses was negative on admission, and no signs of PNA or UTI or meningitis. Dr Rosenthal also advised a CTA head and neck which were completed 04/23>> it showed a 50% L internal carotid stenosis, and same stroke that was previously described on CT and MRI. No LP is planned, so we resumed her Plavix 75 mg p.o. daily Plan: Continue managing the hyponatremia PT, ST and OT to continue. Her walking, her balance and ADLs are not bad, but she has extremely poor short-term memory and needs continued repetitive cuing. Returning home to live alone will not be safe because of her very poor cognition. Her boyfriend Xavier had moved in since the stroke 5 mos ago. PAVEL and I advised Xavier he will need to hire extra caregivers and resources were provided by PAVEL. (3) Hyponatremia Assessment/Plan: Improving. All labs were reviewed. Patient has a "history of low sodium", unknown for what period of time, or what was the cause. Xavier, her S.O. said she was never treated with salt tablets but she did salt her food freely. She was not drinkng excessive free water or have potomania, like a tea and toast diet, to consider hemodilution.. She had a stroke 5 months ago. No history of subarachnoid hemorrhage though, which could then be the cause of "central salt wasting". She is not hyperglycemic would have caused pseudohyponatremia. Serum sodium level has slowly improved, after iv hypertonic saline, the isotonic saline for several days, and now on a daily salt tablet started 04/23. Plan: We will continue with 1 salt tablet daily, and remove the salt restriction in her diet order. Monitor serum sodium every day Today, after cancelling DCh, I discussed with her significant thickened other at bedside that the best liquids for her at home would be Propel which is electrolytes like Gatorade but without the sugar, used in diabetics therefore. We will order that to be tried here. We will also request an official Nutrition consult to teach the S.O about free water restriction for her, but ad yuly. intake of juices, electrolyte drinks, and broths. 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 She presented with a sodium of 126, and her sodium decreased to 124 then 119, despite being on isotonic NS. Therefore a urine sodium level was sent off and it was very high at 142. This indicates that she is not able to retain salt, or is retaining free water, consistent with SIADH. Her TSH is not high, ruling out hypothyroidism as the cause of SIADH. Her morning cortisol level was normal ruling out adrenal insufficiency. She was transferred to the ICU and received 1L of hypertonic saline several days ago. With that, the Na mala to 129 then dropped to 127 and isotonic NS was continued and a salt tablet daily was started. Na after that has been 130>> 132>> 131 today. Reason for SIADH is possibly her brain pathology, and a reset osmostat. Plan: Cont to monitor serum sodium every day Continue 1 salt tablet daily (5) Hx of completed stroke Assessment/Plan: The described that the patient had new onset of confusion in early Jan 2022, brought her to the ER, testing showed she had parainfluenza, no brain imaging was done. She was then seen by her PCP sometime later, no brain imaging was done. She was then seen by her Quality Assurance Monitor Chassis Dr Da Silva, and he did feel that she had sx suspicious for stroke and a brain MRI was ordered and done which by then was 2 to 3 months months out from the beginning of symptoms. It did show a stroke. She then saw a neurologist in March 2022. 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 She was ordered to get PT for balance and walking, Speech Therapy for cognitive therapy. The says that the patient refused to participate to do these. She has been able to function independently such as walk, feed herself and toilet herself. The brought in the office note from March [address] Tg Rosenthal and the impression was cognitive impairment after stroke. I reviewed these pages. Dr Rosenthal wanted a ZioPatch to check for Afib. The told me that was done and no A-fib was seen despite the patient having "palpitations". CT head done 04/21 in the ED was read as having "Left parietal-occipital encephalomalacia indicating prior infarct." MRI head done 04/21 in the ED was read as having "No acute ischemia. Encephalomalacia with surrounding T2 hyperintensity in the left posterior occipital region, seen on prior study but there is new central liquefaction. Impression: Evolving left parietal lobe infarct." When I spoke to her neurologist, Dr. Tg Rosenthal, and read her these findings, Dr. Rosenthal felt they were probably late effects of the same old stroke and not a new or more recent stroke in evolution, but recommended that I speak to Radiology to define what that meant. I contacted the Radiology reader, Dr Jazlyn Park and discussed those findings of "liquifaction". Dr Park said that is the normal progression of an old stroke, which will eventually turn into a "hole" where the stroke damaged the brain. Dr Rosenthal advised she have a CTA head and neck which were completed yesterday >> reported to have 50% L internal carotid stenosis, same stroke that was previously described. An Echo was done 04/23, it showed normal LVEF, mild diastolic dysfunction, no clot seen, but there was no bubble study done to check for intra-cardiac shunt. No LP is planned, we resumed her Plavix 75 mg p.o. daily Plan: According to the neurology office visit note from 1 mo ago, her neurologist ordered an Echo w/Bubble study to be done as an outpatient, and that had not yet been done. An Echo was done here 04/23 (), but it had no bubble study. I re- ordered the bubble study (but we have no Echo service Wed, Wed, Wed, Wed). Continue telemetry, monitoring for Afib. Speech Therapy, PT and OT to continue to work with her. Recommendations are for more PT, OT, ST with Home Health And returning home to live alone will not be safe because of her very poor cognition. Her boyfriend Xavier had moved in to her house, since the stroke 5 mos ago. PAVEL and I advised Xavier he will need to hire extra caregivers and resources were provided by PAVEL. (6) PVD Her CTA head and neck done here 04/23, showed a 50% L internal carotid stenosis. Plan: Plavix has been restarted (since no LP is planned). Cont Atorvastatin (7) Hx HTN She was first running systolic BP 150-170 here. At home she took lisinopril, minipress and propranolol We resumed the lisinopril, with holding parameters. We did not resume propranolol because of its very short half-life, and ordered new metoprolol tartrate instead, then changed to succinate. Then eventually her Minipress was resumed. Plan: With those 3 medications, today she developed orthostasis (see #1) and her discharge needed to be canceled today We will stop her Minipress Continue with Lisinopril daily and Toprol daily. These meds may need to be staggered in case she is still orthostatic tomorrow. (8) DM type 2 (diabetes mellitus, type 2) Assessment/Plan: This patient was on glipizide and metformin at home, no insulin. Her A1c came back at 7.7 Plan: A carb-controlled diet has been ordered and continued (9) Tachycardia Resolved When doing rehab 04/23, her heart rate went from 88 to 110 while sitting, trying to eat solid foods. The therapist thought it was from being confused and frustrated. Also the patient was on propranolol at home which she was not started here. She was started on Metoprolol tartrate 25 twice daily and not Propranolol due to its short half-life. Plan: Continue telemetry. Continue Metoprolol, we switched to Succinate for once daily dosing. - Current Meds Current Meds: Current Medications Generic Name Dose Route Start Last Admin Trade Name Freq PRN Reason Stop Dose Admin Ascorbic Acid 500 mg 04/22/22 09:00 04/27/22 08:19 Ascorbic Acid 500 Mg Tablet PO 500 mg DAILY LISHA Administration Aspirin 81 mg 04/22/22 09:00 04/27/22 08:18 Aspirin Ec 81 Mg Tablet PO 81 mg DAILY LISHA Administration Atorvastatin Calcium 30 mg 04/22/22 21:00 04/26/22 20:48 Atorvastatin 10 Mg Tablet PO 30 mg QPM LISHA Administration Calcium Carbonate/Glycine 500 mg 04/25/22 09:00 04/27/22 08:18 Calcium Carbonate Chew 500 Mg Tablet PO 500 mg BID LISHA Administration Clopidogrel Bisulfate 75 mg 04/24/22 09:00 04/27/22 08:38 Clopidogrel 75 Mg Tablet PO 75 mg DAILY LISHA Administration Hydralazine HCl 10 mg 04/23/22 16:13 04/27/22 05:48 Hydralazine Inj 20 Mg/Ml Vial IVP 10 mg Q8H PRN Administration Hypertensive Emergency Insulin Human Lispro 3 - 11 unit 04/25/22 21:00 04/27/22 11:38 Insulin Lispro 300 Unit/3 Ml Pen SUBQ 7 unit 0800,1200,1700,2100 LISHA Administration Protocol Lisinopril 20 mg 04/24/22 09:00 04/27/22 08:38 Lisinopril 20 Mg Tablet PO 20 mg DAILY LISHA Administration Magnesium Oxide 400 mg 04/26/22 13:00 04/27/22 08:18 Magnesium Oxide 400 Mg Tablet PO 04/28/22 00:01 400 mg DAILYWM LISHA Administration Metformin HCl 1,000 mg 04/24/22 17:00 04/27/22 08:18 Metformin 500 Mg Tablet PO 1,000 mg BIDWM LISHA Administration Metoprolol Tartrate 25 mg 04/23/22 12:00 04/26/22 20:49 Metoprolol Tartrate 25 Mg Tablet PO 25 mg BID LISHA Administration Multi-Ingredient Ointment 1 applic 04/23/22 19:23 04/25/22 20:39 Zinc Oxide 20% Oint 30 Gm Tube TOP 1 applic PRN PRN Administration Skin Care Multivitamins/Folic Acid/Vitamin C 15 ml 04/22/22 11:00 04/27/22 08:38 Multivitamin W/Iron, Minerals 15 Ml PO 15 ml DAILY LISHA Administration Nystatin 1 applic 04/22/22 21:00 04/27/22 10:14 Nystatin Powder 15 Gm TOP Not Given BID LISHA Ondansetron HCl 4 mg 04/21/22 21:57 04/23/22 16:14 Ondansetron Odt 4 Mg Tablet TL 4 mg Q6HR PRN Administration Nausea / Vomiting Polyethylene Glycol 17 gm 04/25/22 09:00 04/27/22 08:41 Polyethylene Glycol 3350 17 Gm Packet PO Not Given DAILY LISHA Prazosin HCl 4 mg 04/24/22 21:00 04/27/22 10:22 Prazosin 1 Mg Capsule PO 4 mg BID LISHA Administration Sodium Chloride 10 ml 04/21/22 21:57 04/25/22 04:36 Sodium Chloride Flush 0.9% 10 Ml Syringe IVP 10 ml PRN PRN Administration NEEDED PER PROVIDER ORDERS Sodium Chloride 10 ml 04/22/22 01:00 04/27/22 08:19 Sodium Chloride Flush 0.9% 10 Ml Syringe IVP 10 ml 0100,0900,1700 LISHA Administration Sodium Chloride 1 gm 04/23/22 17:39 04/27/22 08:18 Sodium Chloride 1 Gm Tablet PO 1 gm DAILY LISHA Administration - Lab Result Fish Bone Diagrams: 04/23/22 05:36 04/28/22 05:31 - Additional Planning My Orders: My Active Orders 04/26/22 13:00 Magnesium Oxide [Mag Ox] 400 mg PO DAILYWM 04/28/22 05:00 BMP - BASIC METABOLIC PANEL [CHEM] DAILYLAB 04/28/22 08:00 Orthostatic [Vital Signs - Orthostatic] [RC] DAILY Subjective - Subjective Patient Reports: Resting Comfortably, Other (She feels tired and drained after trying to work with PT, but was having dizziness and blurred vision) Objective Vital Signs: Vital Signs - 24 hr 04/26/22 04/26/22 04/26/22 16:08 20:46 20:49 Temperature 36.5 C 36.3 C L Heart Rate [ Brachial] Heart Rate [ 78 84 Monitoring electrodes] Respiratory 16 16 Rate Blood Pressure 146/72 H Blood Pressure [Left Brachial artery] Blood Pressure [Right Ankle] Blood Pressure 153/64 H 150/68 H [Right Brachial artery] O2 Saturation 98 98 04/26/22 04/26/22 04/27/22 20:55 23:40 05:20 Temperature 36.3 C L 36.3 C L Heart Rate [ 79 74 Brachial] Heart Rate [ 78 Monitoring electrodes] Respiratory 14 18 18 Rate Blood Pressure Blood Pressure [Left Brachial artery] Blood Pressure 172/70 H [Right Ankle] Blood Pressure 146/72 H 144/58 H [Right Brachial artery] O2 Saturation 97 96 97 04/27/22 04/27/22 04/27/22 05:48 06:05 06:10 Temperature Heart Rate [ 85 91 Brachial] Heart Rate [ Monitoring electrodes] Respiratory Rate Blood Pressure 194/67 H Blood Pressure [Left Brachial artery] Blood Pressure [Right Ankle] Blood Pressure 152/52 H 156/65 H [Right Brachial artery] O2 Saturation 04/27/22 04/27/22 04/27/22 06:15 06:18 06:30 Temperature Heart Rate [ 87 95 Brachial] Heart Rate [ Monitoring electrodes] Respiratory Rate Blood Pressure 127/47 L Blood Pressure [Left Brachial artery] Blood Pressure [Right Ankle] Blood Pressure 142/58 H 167/58 H [Right Brachial artery] O2 Saturation 04/27/22 04/27/22 04/27/22 06:45 07:00 07:31 Temperature 36.5 C Heart Rate [ 91 92 95 Brachial] Heart Rate [ Monitoring electrodes] Respiratory 18 Rate Blood Pressure Blood Pressure [Left Brachial artery] Blood Pressure [Right Ankle] Blood Pressure 155/58 H 156/62 H 150/58 H [Right Brachial artery] O2 Saturation 97 04/27/22 04/27/22 04/27/22 08:48 10:15 11:16 Temperature 36.6 C 36.3 C L Heart Rate [ 87 Brachial] Heart Rate [ 85 85 Monitoring electrodes] Respiratory 15 16 18 Rate Blood Pressure Blood Pressure [Left Brachial artery] Blood Pressure [Right Ankle] Blood Pressure 133/45 H 165/64 H 144/53 H [Right Brachial artery] O2 Saturation 96 97 97 04/27/22 04/27/22 04/27/22 12:47 13:01 13:09 Temperature Heart Rate [ Brachial] Heart Rate [ 96 88 85 Monitoring electrodes] Respiratory 16 15 Rate Blood Pressure Blood Pressure 94/34 L 108/36 L [Left Brachial artery] Blood Pressure [Right Ankle] Blood Pressure 104/33 L 127/40 L [Right Brachial artery] O2 Saturation 96 97 Oxygen O2 Source [With Activity] Room air O2 Source Room air I&O (Last 24 Hrs): Intake and Output Totals x24h 04/25/22 04/26/22 04/27/22 22:59 23:59 23:59 Intake Total 480 Output Total Balance 480 General: Alert, No acute distress, Other (Appears pale) HEENT: Atraumatic, EOMI Neck: Supple, No JVD Neuro: Alert, Disoriented, Other (poor historian) Cardiovascular: Regular rate Respiratory: No respiratory distress Abdomen: No tenderness Extremities: No clubbing, No edema, No tenderness/swelling - Results Results: Laboratory Results WBC 6.6 x10^3/uL (4.8-10.8) 04/23/22 05:36 RBC 3.53 10^6/uL (4.20-5.40) L 04/23/22 05:36 Hgb 11.9 g/dL (12.0-16.0) L 04/23/22 05:36 Hct 33.3 % (37.0-47.0) L 04/23/22 05:36 MCV 94.3 fL (81.0-99.0) 04/23/22 05:36 MCH 33.7 pg (27.0-31.0) H 04/23/22 05:36 MCHC 35.7 g/dL (32.0-36.0) 04/23/22 05:36 RDW 13.0 % (12.0-15.0) 04/23/22 05:36 Plt Count 202 10^3/uL (130-450) 04/23/22 05:36 MPV 9.4 fL (7.9-10.8) 04/23/22 05:36 Neut # (Auto) 4.2 10^3/uL (1.5-6.6) 04/23/22 05:36 Lymph # (Auto) 1.2 10^3/uL (1.5-3.5) L 04/23/22 05:36 Dukes # (Auto) 1.2 10^3/uL (0.0-1.0) H 04/23/22 05:36 Eos # (Auto) 0.0 10^3/uL (0.0-0.7) 04/23/22 05:36 Baso # (Auto) 0.0 10^3/uL (0.0-0.1) 04/23/22 05:36 Absolute Nucleated RBC 0.00 x10^3/uL 04/23/22 05:36 Nucleated RBC % 0.0 /100WBC 04/23/22 05:36 PT 12.7 secs (9.9-12.6) H 04/22/22 13:14 INR 1.1 (0.8-1.2) 04/22/22 13:14 VBG pH 7.474 (7.31-7.41) H 04/24/22 05:18 Ionized Calcium 1.01 mmol/L (1.15-1.33) L 04/24/22 05:18 Sodium 133 mmol/L (135-145) L 04/27/22 05:10 Potassium 4.2 mmol/L (3.5-5.0) 04/27/22 05:10 Chloride 97 mmol/L (101-111) L 04/27/22 05:10 Carbon Dioxide 27 mmol/L (21-32) 04/27/22 05:10 Anion Gap 9.0 (6-13) 04/27/22 05:10 BUN 10 mg/dL (6-20) 04/27/22 05:10 Creatinine 0.5 mg/dL (0.4-1.0) 04/27/22 05:10 Estimated GFR (MDRD) 118 (>89) 04/27/22 05:10 Glucose 201 mg/dL (70-100) H 04/27/22 05:10 POC Whole Bld Glucose 252 mg/dL (70 - 100) H 04/27/22 11:10 Estimat Average Glucose 174 mg/dL (70-100) H 04/23/22 05:36 Hemoglobin A1c % 7.7 % (4.27-6.07) H 04/23/22 05:36 Calcium 8.3 mg/dL (8.5-10.3) L 04/27/22 05:10 Phosphorus 3.0 mg/dL (2.5-4.6) 04/26/22 04:46 Magnesium 1.6 mg/dL (1.7-2.8) L 04/26/22 04:46 Total Bilirubin 0.6 mg/dL (0.2-1.0) 04/21/22 12:26 AST 18 IU/L (10-42) 04/21/22 12:26 ALT 15 IU/L (10-60) 04/21/22 12:26 Alkaline Phosphatase 52 IU/L (42-121) 04/21/22 12:26 Ammonia 12.8 umol/L (7-35) 04/21/22 21:54 Total Protein 6.7 g/dL (6.7-8.2) 04/21/22 12:26 Albumin 3.5 g/dL (3.2-5.5) 04/21/22 12:26 Globulin 3.2 g/dL (2.1-4.2) 04/21/22 12:26 Albumin/Globulin Ratio 1.1 (1.0-2.2) 04/21/22 12:26 Triglycerides 39 mg/dL (-149) 04/23/22 07:52 Cholesterol 153 mg/dL (-199) 04/23/22 07:52 LDL Cholesterol, Calc Not Reportable 04/23/22 07:52 VLDL Cholesterol Not Reportable 04/23/22 07:52 HDL Cholesterol 83 mg/dL (60-) 04/23/22 07:52 LDL/HDL Ratio Not Reportable 04/23/22 07:52 Cholesterol/HDL Ratio 1.8 (<4.4) 04/23/22 07:52 Lipase 36 U/L (22-51) 04/21/22 12:26 TSH 0.62 uIU/mL (0.34-5.60) 04/21/22 21:15 Cortisol AM Sample 11.1 ug/dL 04/23/22 07:52 Urine Color YELLOW 04/21/22 16:02 Urine Clarity CLEAR (CLEAR) 04/21/22 16:02 Urine pH 8.0 PH (5.0-7.5) H 04/21/22 16:02 Ur Specific [place] 1.015 (1.002-1.030) 04/21/22 16:02 Urine Protein NEGATIVE mg/dL (NEGATIVE) 04/21/22 16:02 Urine Glucose (UA) NEGATIVE mg/dL (NEGATIVE) 04/21/22 16:02 Urine Ketones NEGATIVE mg/dL (NEGATIVE) 04/21/22 16:02 Urine Occult Blood NEGATIVE (NEGATIVE) 04/21/22 16:02 Urine Nitrite NEGATIVE (NEGATIVE) 04/21/22 16:02 Urine Bilirubin NEGATIVE (NEGATIVE) 04/21/22 16:02 Urine Urobilinogen 0.2 (NORMAL) E.U./dL (NORMAL) 04/21/22 16:02 Ur Leukocyte Esterase NEGATIVE (NEGATIVE) 04/21/22 16:02 Ur Microscopic Review NOT INDICATED 04/21/22 16:02 Urine Culture Comments NOT INDICATED 04/21/22 16:02 Urine Sodium 142.0 mmol/L 04/22/22 10:16 Nasal Adenovirus (PCR) NOT DETECTED 04/21/22 21:15 Nasal B. parapertussis DNA (PCR) NOT DETECTED 04/21/22 21:15 Nasal Coronavir 229E PCR NOT DETECTED 04/21/22 21:15 Nasal Coronavir HKU1 PCR NOT DETECTED 04/21/22 21:15 Nasal Coronavir NL63 PCR NOT DETECTED 04/21/22 21:15 Nasal Coronavir OC43 PCR NOT DETECTED 04/21/22 21:15 Nasal Enterovir/Rhinovir PCR NOT DETECTED 04/21/22 21:15 Nasal Influenza B PCR NOT DETECTED 04/21/22 21:15 Nasal Influenza A PCR NOT DETECTED 04/21/22 21:15 Nasal Parainfluen 1 PCR NOT DETECTED 04/21/22 21:15 Nasal Parainfluen 2 PCR NOT DETECTED 04/21/22 21:15 Nasal Parainfluen 3 PCR NOT DETECTED 04/21/22 21:15 Nasal Parainfluen 4 PCR NOT DETECTED 04/21/22 21:15 Nasal RSV (PCR) NOT DETECTED 04/21/22 21:15 Nasal Screen MRSA (PCR) NEGATIVE (NEGATIVE) 04/22/22 13:20 Nasal B.pertussis DNA PCR NOT DETECTED 04/21/22 21:15 Nasal C.pneumoniae (PCR) NOT DETECTED 04/21/22 21:15 [place]ver Human Metapneumo PCR NOT DETECTED 04/21/22 21:15 Nasal M.pneumoniae (PCR) NOT DETECTED 04/21/22 21:15 Nasal SARS-CoV-2 (PCR) NOT DETECTED 04/21/22 21:15 Salicylates < 6.0 mg/dL 04/21/22 21:15 Urine Opiates Screen NEGATIVE (NEGATIVE) 04/21/22 16:02 Ur Oxycodone Screen NEGATIVE (NEGATIVE) 04/21/22 16:02 Urine Methadone Screen NEGATIVE (NEGATIVE) 04/21/22 16:02 Ur Propoxyphene Screen NEGATIVE (NEGATIVE) 04/21/22 16:02 Acetaminophen < 10 ug/mL (10-30) L 04/21/22 21:15 Ur Barbiturates Screen NEGATIVE (NEGATIVE) 04/21/22 16:02 Ur Tricyclics Screen NEGATIVE (NEGATIVE) 04/21/22 16:02 Ur Phencyclidine Scrn NEGATIVE (NEGATIVE) 04/21/22 16:02 Ur Amphetamine Screen NEGATIVE (NEGATIVE) 04/21/22 16:02 U Methamphetamines Scrn NEGATIVE (NEGATIVE) 04/21/22 16:02 U Benzodiazepines Scrn NEGATIVE (NEGATIVE) 04/21/22 16:02 Urine Cocaine Screen NEGATIVE (NEGATIVE) 04/21/22 16:02 U Cannabinoids Screen NEGATIVE (NEGATIVE) 04/21/22 16:02 Ethyl Alcohol < 5.0 mg/dL 04/21/22 21:15 - Procedures Procedures: Procedures EXCISION OF DUODENUM, ENDO, DIAGN (08/24/19) EXCISION OF ESOPHAGUS, ENDO, DIAGN (08/24/19) EXCISION OF STOMACH, ENDO, DIAGN (08/24/19)
[2022-04-27] MEDS ORDERED: SODIUM CHLORIDE 0.9% 1,000 ML IV SCH (14:00)
[2022-04-27] MEDS: ATORVASTATIN 10 MG TABLET PO SCH (20:56)
[2022-04-28 06:27] LABS: CALCIUM 8.1 mg/dL (8.5-10.3); CREATININE 0.6 mg/dL (0.4-1.0); MAGNESIUM 1.7 mg/dL (1.7-2.8)
[2022-04-28] MEDS: INSULIN LISPRO 300 UNIT/3 ML PEN SUBQ SCH ×2 (08:22→11:51)
[2022-04-28] MEDS: CLOPIDOGREL 75 MG TABLET PO SCH (08:23)
[2022-04-28] MEDS: metFORMIN 500 MG TABLET PO SCH (08:23)
[2022-04-28] MEDS: SODIUM CHLORIDE 1 GM TABLET PO SCH (08:24)
[2022-04-28] MEDS: ASPIRIN EC 81 MG TABLET PO SCH (08:24)
[2022-04-28] MEDS: CALCIUM CARBONATE CHEW 500 MG TABLET PO SCH (08:24)
[2022-04-28] MEDS: ASCORBIC ACID 500 MG TABLET PO SCH (08:24)
[2022-04-28] MEDS: polyethylene glycoL 3350 17 GM PACKET PO SCH (08:46)
[2022-04-28] MEDS: MULTIVITAMIN W/IRON, MINERALS 15 ML PO SCH (08:46)
[2022-04-28] MEDS: ZINC OXIDE 20% OINT 30 GM TUBE TOP PRN (08:55)
[2022-04-28] MEDS: SODIUM CHLORIDE FLUSH 0.9% 10 ML SYRINGE IVP SCH (08:55)
[2022-04-28] MEDS: NYSTATIN POWDER 15 GM TOP SCH (08:56)
[2022-04-28] MEDS ORDERED: METOPROLOL SUCCINATE 25 MG TABLET PO SCH (09:00)
[2022-04-28] MEDS ORDERED: lisinopriL 20 MG TABLET PO SCH (09:00)
--- NOTE | 2022-04-28 10:47 | Discharge Plan ---
Discharge Plan Problem Reviewed?: Yes Disposition: 06 Home Health Service Condition: Fair Prescriptions: lisinopriL [Lisinopril] 10 mg PO DAILY #30 tablet Sodium Chloride [Salt Tab] 1 gm PO DAILY #30 tab Metoprolol Succinate [Toprol Xl] 25 mg PO DAILY #30 tablet Metoprolol Succinate [Toprol Xl] 50 mg PO DAILY #30 tablet lisinopriL [Zestril] 5 mg PO DAILY #30 tablet Diet: Low Sodium Activity Restrictions: Activity as Tolerated Shower Restrictions: No Driving Restrictions: Yes Weight Bearing: Full Weight Instruction Topics: Hyponatremia Dc Ch Health Concerns: The patient was hospitalized due to worsening confusion that was sudden, on top of confusion she has had for 5 months from her stroke. We found the cause to be a severely low serum sodium level. She has a condition called SIADH which makes her retain water but eliminate salt. She has been put on treatment with 1 salt tablet daily and this should continue. She may freely salt her food. Also medications have been adjusted for blood pressure. The patient is being discharged home today with a referral placed for a home [facility] agency that will provide in-home Physical Therapy, Occupational Therapy, Speech Therapy for cognitive stimulation, an RN to check her vital signs and condition, and a bath aide to help with showering and her hygiene. Since she has refused PT and OT and Speech Therapy in the past, these therapies need to be promoted, because she has no capacity to make medical decisions for herself (with her diagnosis of Cognitive Impairment from her stroke), and refusing all therapies on her part, does not mean she will not cooperate with therapists, please tell them that. Patient now needs constant cueing regarding all activities, therefore she will need more caregiving and supervision than 1 person can probably do. Resources for hiring in-home caregivers have been provided to you. The patient should have a visit to her Primary Care Provider in the next 1 to 2 weeks and she need repeat blood testing to check her sodium level. Also needs followup on erratic BP with 2 changes made in last few days for low blood pressure initally followed by high blood pressure. She is now on Lisinopril 10 mg and Metoprolol XL 50 mg. She should also have follow-up with her Neurologist. Plan of Treatment: As above and follow the new list of medications that she should now be taking. As her cognition slowly worsens over time, I recommend that future plans should also be established, such as possible placement in a senior care care facility or fpc. Also, establishing a legal DPOA is in her best interest. Xavier, you will have to seek legal researcher for this. Care Goals: Improvement in symptoms and stabilization are the goals. Assessment: Her significant-other, Xavier, understands and agrees with the plan. Additional Instructions or Follow Up instructions: If the patient has new or worsening symptoms, call her PCP or her neurologist for advice, or she should come to the ER. Follow-Up Care: Home Health - RN, Home Health - PT, Home Health - OT, Home Health - ST No Smoking: If you smoke, Please STOP! Call for help. Follow-up with: SHALA JACKSON ARNP [Physician No Access] -
[2022-04-28 11:48] VITALS: BP 152/70
--- NOTE | 2022-04-28 22:56 | DISCHARGE SUMMARY ---
"Discharge Summary Admit Date: 04/21/22 Discharge Date: 04/28/22 Discharging Provider: Nedra Quijano MD Primary Care Provider: NATHALY Calero Code Status: Do Not Attempt Resuscitation Condition at Discharge: Fair Discharge Disposition: Home Health Service - DIAGNOSES Discharge Diagnoses with Status of Each Condition: 1. Confusion 2. Hyponatremia 3. SIADH 4. History of completed stroke 5. Peripheral vascular disease 6. History of essential hypertension 7. Type 2 diabetes mellitus 8. Tachycardia 9. Orthostatic hypotension - HPI History of Present Illness: 81 y/o F with confusion for 1 day, no history of trauma. Pt at times was also agitated at times. per has had some episodes similar before since her stroke 5 moths ago but not this severe. no loc no fever or dysuria pt is sleepy but arousble interview with present Past Medical History Cardiovascular: reports: Hypertension, High cholesterol Neuro: reports: CVA Endocrine/Autoimmune: reports: Type 2 diabetes GI: reports: GERD, Chronic diarrhea HEENT: reports: None Psych: reports: Anxiety, Panic attacks MRSA Hx?: No - CONSULTS | PROCEDURES Procedures: 1. Head CT without acute intracranial process. She has a left parieto- occipital encephalomalacia indicating prior infarct. 2. Chest x-ray is without acute cardiopulmonary process 3. Brain MRI has limited exam secondary to condition and motion artifact wall she does not have any acute process, she has an evolving left parietal lobe infarct. 4. Head and neck CT angiogram showed evolving focus of subacute left parietal infarct. No hemorrhage. No areas of hemodynamically significant stenosis, vascular occlusion or aneurysmal dilation. She had stable 50% stenosis at the origin of the internal carotid bilaterally. - HOSPITAL COURSE Hospital Course: The patient was hospitalized due to worsening confusion that was sudden, on top of confusion she has had for 5 months from her stroke. That was the previous stroke, and with this admission (on MRI) we see evidence of a stroke that had happened and was evolving. We found the cause to be a severely low serum sodium level. She has SIADH as part of a complication from her previous stroke that makes her retain water but eliminate salt. This was discussed by Dr. Shin with the patient's Neurologist Tg Rosenthal. She has been put on treatment with 1 salt tablet daily and this should continue. She may freely salt her food. Also medications have been adjusted for blood pressure.New prescription for metoprolol for blood pressure and heart rate. New prescription for lisinopril. She was continued on her Plavix. The patient is being discharged home with a referral placed for a home health agency that will provide in-home Physical Therapy, Occupational Therapy, Speech Therapy for cognitive stimulation, an RN to check her vital signs and condition, and a bath aide to help with showering and her hygiene. Since she has refused PT and OT and Speech Therapy in the past, these therapies need to be promoted, because she has no capacity to make medical decisions for herself (with her diagnosis of Cognitive Impairment from her stroke), and refusing all therapies on her part, does not mean she will not cooperate with therapists, please tell them that. Patient now needs constant cueing regarding all activities, therefore she will need more caregiving and supervision than 1 person can probably do. Resources for hiring in-home caregivers have been provided to her partner. He was difficult to decide who is going to be power of erisa attorney. Her son is in skilled nursing in [place] with severe psychiatric disability. Her brother does not live nearby. He did give permission for her significant other/partner who has been living with her and taking care of her to make decisions. The patient should have a visit to her Primary Care Provider in the next 1 to 2 weeks and she need repeat blood testing to check her sodium level. Also needs followup on erratic BP with 2 changes made in last few days for low blood pressure initally followed by high blood pressure. She is now on Lisinopril 10 mg and Metoprolol XL 50 mg. She should also have follow-up with her Neurologist. As her cognition slowly worsens over time, I recommend that future plans should also be established, such as possible placement in a residential care facility or shelter. Also, establishing a legal DPOA is in her best interest. This was discussed with her significant other who lives with her at discharge. Improvement in symptoms and stabilization are the goals. Discharge exam had a temperature of 36.5. Heart rate 77. Blood pressure 152/70. Respirations 16. 97% on room air. She is 5 foot 2 inches tall, weighs 75 kg. She is able to walk to the bathroom, ambulate with a walker. Very forgetful. Occasional spontaneous cough. Lungs with coarse upper airway sounds. Diminished at the bases. No tachypnea or tachycardia. No use of accessory muscles. Abdomen is soft, has hypoactive bowel sounds, nontender. She is occasionally incontinent of urine using a brief or fat pad. She has some mild generalized edema of her lower extremities. She has intermittent confusion where she is disoriented to her situation or to where she is. But at discharge was oriented to person place and time and why she had been in the hospital. This document was made in part using voice recognition software. While efforts are made to proofread this document, sound alike and grammatical errors may occur. - ALLERGIES Allergies/Adverse Reactions: Allergies Allergy/AdvReac Type Severity Reaction Status Date / Time NSAIDS (Non-Steroidal Allergy Respiratory Verified 04/21/22 11:59 Anti-Inflamma - MEDICATIONS Home Medications: Ambulatory Orders Medication Instructions Recorded Confirmed Metformin HCl 1,000 mg PO BIDWM 03/12/16 04/23/22 Simvastatin 60 mg PO QPM 03/12/16 04/22/22 glipiZIDE [Glipizide] 10 mg PO DAILY 03/12/16 04/22/22 Clopidogrel [Plavix] 75 mg PO DAILY 04/22/22 04/22/22 Sodium Chloride [Salt Tab] 1 gm PO DAILY #30 tab 04/27/22 Zinc Oxide 20% Oint [Zinc Oxide] 1 applic TOP PRN PRN each 04/27/22 Metoprolol Succinate [Toprol Xl] 50 mg PO DAILY #30 tablet 04/28/22 lisinopriL [Lisinopril] 10 mg PO DAILY #30 tablet 04/28/22 - LABS Result Diagrams: 04/23/22 05:36 04/28/22 05:31"
== END 2022-04-28 14:00 | disposition home health service (06) | DRG 645 ==
LOC: ED 11:34 → MS2 21:57 → ICU 04-22 12:52 → MS2 04-26 12:23
PROVIDERS: ADMIT Hospitalist; ATTEND Specialist
DX: R41.0 Disorientation, unspecified (principal); E22.2 Syndrome of inappropriate secretion of antidiuretic hormone; I10 Essential (primary) hypertension; E78.00 Pure hypercholesterolemia, unspecified; E11.9 Type 2 diabetes mellitus without complications; K21.9 Gastro-esophageal reflux disease without esophagitis; K59.09 Other constipation; E87.1 Hypo-osmolality and hyponatremia; F41.9 Anxiety disorder, unspecified; R42 Dizziness and giddiness; F41.0 Panic disorder [episodic paroxysmal anxiety]; Z20.822 Contact with and (suspected) exposure to COVID-19; R00.0 Tachycardia, unspecified; I95.1 Orthostatic hypotension; R45.1 Restlessness and agitation; Z86.73 Personal history of transient ischemic attack (TIA), and cerebral infarction without residual deficits; I69.319 Unspecified symptoms and signs involving cognitive functions following cerebral infarction; Z79.02 Long term (current) use of antithrombotics/antiplatelets; Z79.82 Long term (current) use of aspirin; Z79.84 Long term (current) use of oral hypoglycemic drugs; Z79.899 Other long term (current) drug therapy
CPT/HCPCS: 36415; 51701; 70450; 70496; 70498; 70551; 71045; 80048; 80053; 80061; 80306; 80307; 81003; 82140; 82330; 82533; 83036; 83690; 83735; 84100; 84132; 84295; 84300; 84443; 85025; 85610; 87150; 87633; 93005; 93306; 97116; 97162; 97165; 97530; 99284; 99285; A9270; G0480; Q0162; Q9967; 80320; 80329; 81001; 83721; 87086

== ENCOUNTER 2022-05-05 08:00 | Outpatient (CLI) | payer MEDICARE ==
[2022-05-05 14:50] LABS: BILIRUBIN,URINE NEGATIVE (NEGATIVE); GLUCOSE, URINE (UA) >=1000 mg/dL (NEGATIVE); KETONES,URINE (UA) NEGATIVE (NEGATIVE); LEUKOCYTE ESTERASE, URINE SMALL (NEGATIVE); NITRITE,URINE POSITIVE (NEGATIVE); OCCULT BLOOD,URINE TRACE-INTA (NEGATIVE); PH,URINE 6.5 PH (5.0-7.5); PROTEIN,URINE NEGATIVE (NEGATIVE); UROBILINOGEN,URINE 0.2 (NORMAL) E.U./dL (NORMAL)
[2022-05-05 15:01] LABS: CLARITY,URINE CLOUDY (CLEAR); WBC,URINE >25 /HPF (0-5)
[2022-05-05 15:02] LABS: BACTERIA,URINE Many /HPF (None Seen); MUCUS,URINE Few Strands; RBC,URINE 0-5 /HPF (0-5); SQUAMOUS EPITHELIAL CELL,UR FEW Squamous (<= Few)
== END 2022-05-05 23:59 | disposition home or self-care (01) ==
LOC: LAB.S 08:00
PROVIDERS: ATTEND Emergency Medicine
DX: R30.0 Dysuria (principal)
CPT/HCPCS: 81001; 87086; 87181

== ENCOUNTER 2022-06-09 10:45 | Outpatient (CLI) | payer MEDICARE | END 2022-06-09 23:59 | disposition critical access hospital (66) | LOC: EMS 10:45 | DX: R53.1 Weakness (principal); R47.1 Dysarthria and anarthria | CPT/HCPCS: A0425; A0429 ==

== ENCOUNTER 2022-06-09 10:59 | Observation (INO) | payer MEDICARE ==
[2022-06-09] MEDS ORDERED: ENALAPRILAT 1.25 MG/ML VIAL IVP STA (11:27)
[2022-06-09] MEDS ORDERED: iohexoL-300 100 ML VIAL IVP ONE (11:30)
[2022-06-09 11:34] LABS: BASOPHILS # (AUTO) 0.1 10^3/uL (0.0-0.1); EOSINOPHILS # (AUTO) 0.1 10^3/uL (0.0-0.7); EOSINOPHILS % (AUTO) 1.6 %; HCT - HEMATOCRIT 41.9 % (37.0-47.0); HGB - HEMOGLOBIN 14.1 g/dL (12.0-16.0); LYMPHOCYTES # (AUTO) 1.5 10^3/uL (1.5-3.5); LYMPHOCYTES % (AUTO) 24.1 %; MEAN CORPUSCULAR HEMOGLOBIN 33.9 pg (27.0-31.0); MEAN CORPUSCULAR HGB CONC 33.7 g/dL (32.0-36.0); MEAN CORPUSCULAR VOLUME 100.7 fL (81.0-99.0); MEAN PLATELET VOLUME 9.4 fL (7.9-10.8); MONOCYTES # (AUTO) 0.6 10^3/uL (0.0-1.0); MONOCYTES % (AUTO) 9.1 %; NEUTROPHILS % (AUTO) 63.6 %; PLT - PLATELET COUNT 249 10^3/uL (130-450); RED BLOOD COUNT 4.16 10^6/uL (4.20-5.40); RED CELL DISTRIBUTION WIDTH 13.2 % (12.0-15.0); WHITE BLOOD COUNT 6.2 x10^3/uL (4.8-10.8)
--- NOTE | 2022-06-09 11:37 | ED Physician Documentation ---
PD HPI FOCAL NEURO - Stated complaint Stated Complaint: CODE STROKE - History obtained from History obtained from: Family (info from , as patient not able to converse herself with current symptoms.), EMS - History of Present Illness Timing - onset: How many minutes ago (30) Timing - duration: Minutes (30) Timing - details: Abrupt onset (The and subsequently arrives in the ER and describes the patient and he were having an uneventful morning with normal breakfast etc. The patient then was noted to have inattention and trouble speaking and not following commands. He is describes a blank stare. He denies any muscle movement), Still present Severity of deficit: Moderate Weakness: Arm, Leg, Right Associated symptoms: No: Nausea / vomiting, Fall Baseline status: positive: A&OX3, ambulatory, indep, Mildly confused (since prior CVA December 2021) Similar symptoms before: Diagnosis (Her states the symptoms are similar to his stroke she had had last December. Recovery from that had been normal motor exam with ADLs but some confusion and memory deficits.) Recently seen: Not recently seen Review of Systems Unable to obtain: AMS, Other (some info per ) Constitutional: denies: Fever GI: denies: Vomiting, Diarrhea Neurologic: denies: Head injury PD PAST MEDICAL HISTORY - Past Medical History Cardiovascular: Hypertension, High cholesterol Neuro: CVA Endocrine/Autoimmune: Type 2 diabetes GI: GERD, Chronic diarrhea HEENT: None Psych: Anxiety, Panic attacks - Present Medications Home Medications: Ambulatory Orders Medication Instructions Recorded Confirmed Metformin HCl 1,000 mg PO BIDWM 03/12/16 06/09/22 Simvastatin 60 mg PO QPM 03/12/16 06/09/22 glipiZIDE [Glipizide] 10 mg PO DAILY 03/12/16 06/09/22 Clopidogrel [Plavix] 75 mg PO DAILY 04/22/22 06/09/22 Metoprolol Succinate [Toprol Xl] 50 mg PO DAILY #30 tablet 04/28/22 06/09/22 lisinopriL [Lisinopril] 10 mg PO DAILY #30 tablet 04/28/22 06/09/22 Sodium Chloride [Salt Tab] 5 gm PO DAILY 06/09/22 06/09/22 - Allergies Allergies/Adverse Reactions: Allergies Allergy/AdvReac Type Severity Reaction Status Date / Time NSAIDS (Non-Steroidal Allergy Respiratory Verified 06/09/22 11:38 Anti-Inflamma - Social History Does the pt smoke?: No Smoking Status: Never smoker PD ED PE NORMAL - Vitals Vital signs reviewed: Yes - General General: Well developed/nourished, Other (The patient presents with head turn to the right side with gaze that way. She will track my hand movement to midline at least. She seems indifferent to activity around her.) - HEENT HEENT: Atraumatic - Neck Neck: Supple, no meningeal sign, No adenopathy - Cardiac Cardiac: RRR, No murmur - Respiratory Respiratory: Clear bilaterally - Abdomen Abdomen: Normal bowel sounds, Soft, Non distended - Derm Derm: Normal color, Warm and dry - Neuro Neuro: Other (The patient is not responding verbally. She minimally follows command with commercial pilot on the left. Seems to have weakness on the right arm and leg. Indifference to activity around her. No tonic nor clonic activity.) NIHSS - Level of Consciousness Level of consciousness: (0) Alert, Keenly responsive LOC Questions: (2) Answers neither correct LOC Commands: (1) Performs one correctly - Gaze Best Gaze: (0) Normal - Visual Visual: (0) No loss - Facial Palsy Facial Palsy: (1) Minor paralysis - Motor Arms (both separate) Motor Arm (right): (2) Some effort against gravity Motor Arm (left): (0) No drift - Motor Legs (both separate) Motor Leg (right): (3) No effort against gravity Motor Leg (left): (0) No drift - Limb Ataxia Limb Ataxia: (2) Present in 2 limbs - Sensory Sensory: (1) Xpsm-[id number] loss - Best Language Best Language: (2) Severe aphasia - Dysarthria Dysarthria: (0) Normal - Extinction and Inattention (formally neg Extinction and inattention: (1) Visual,tactile,auditory,spatial, or personal inattention - Total Score/Results Total Score/Result: 15 Results - Vitals Vitals: Vital Signs - 24 hr 06/09/22 12:08 Heart Rate 92 Respiratory 14 Rate Blood Pressure 239/110 H O2 Saturation 98 Oxygen O2 Source [With Activity] Room air O2 Source Room air - Labs Labs: Laboratory Tests 06/09/22 06/09/22 06/09/22 11:30 11:30 11:30 WBC 6.2 RBC 4.16 L Hgb 14.1 Hct 41.9 MCV 100.7 H MCH 33.9 H MCHC 33.7 RDW 13.2 Plt Count 249 MPV 9.4 Neut # (Auto) 4.0 Lymph # (Auto) 1.5 Barber # (Auto) 0.6 Eos # (Auto) 0.1 Baso # (Auto) 0.1 Absolute Nucleated RBC 0.00 Nucleated RBC % 0.0 PT 10.9 INR 1.0 APTT 23.3 L Sodium 132 L Potassium 4.2 Chloride 92 L Carbon Dioxide 26 Anion Gap 14.0 H BUN 11 Creatinine 0.7 Estimated GFR (MDRD) 80 L Glucose 309 H Calcium 9.0 Magnesium 1.7 Total Bilirubin 0.7 AST 22 ALT 16 Alkaline Phosphatase 74 Total Protein 7.3 Albumin 4.0 Globulin 3.3 Albumin/Globulin Ratio 1.2 Lipase 44 PD Medical Decision Making - ED course Complexity details: reviewed results, considered differential (CVA versus bleed versus electrolyte problem or other considerations.), d/w family, d/w travel sales consultant (Clovis Ellsworth, strokeneurology - see scanned report as well. Impression was more likely new onset seizures rather than new stroke. Given the new seizure to though he is disinclined to give any thrombolytics. There is no LVO so no indication for endovascular. Recommends Keppra loading, Ativan, MRI. ), other (discussed with our Hospitalist. ) ED course: The patient presents as a code stroke with onset of apparent aphasia, cognitive and difference, right arm and leg weakness about 30 minutes prior to arrival. Her witnessed the change in her neuro status at the time. She had been having an uneventful morning. She had had a prior stroke in December 2021 with right-sided weakness and aphasia. Her states this had recovered to fairly normal motor activity with independent ADLs at home but some cognitive deficit of forgetfulness and mild confusion. The patient presented by EMS. No obvious seizure activity. No obvious trauma. She went to CT for imaging and angiogram promptly. Upon return to the department exam was fairly similar. Her had not yet arrived. Shortly after her did arrive. Prior to to that, I did consult with stroke neurology Dr. Clovis Ellsworth and also got a verbal report from the radiologist about the CT scan. The patient's blood pressure was elevated and she was given a dose of enalapril IV for blood pressure 239/110. This did improve it to approximately 208/89. At this point the patient's had arrived and Dr. Ellsworth neurologist was on the telestroke video talking with the and and examining visually the patient. It was during this the patient was noted to have some twitching of the right leg rhythmically and still the end and difference in gaze to the right. As I was in the room, it did seem to more generalized to general body twitching more appearing with seizure. She was given Ativan 1 mg IV though the twitching had actually decreased prior to infusion of the medicine. At the suggestion of the neurologist, we also gave loading dose of Keppra. She was given 1 g IV initially. Subsequent suggestion was for 2 g load and so we will give her an additional amount. Discussion at that point with the neurologist and the patient's was for consideration of transfer to another facility that could do EEG if there was uncertainty of continued seizure activity. MRI could be obtained to evaluate for expanded stroke. The patient is resting comfortably now with normal color and oxygenation. She is somnolent. No seizure-like motor activity is seen in the seat seizure and seems to be stopped. - Critical Care Time(min): 60 Time Includes: Direct patient care, Document care, Coordinate care, Medical consult Data interpretation: Labs, Pulse ox Procedures excluded from critical care time: EKG Departure - Departure Disposition: ED Place in Observation Clinical Impression: Neurocognitive deficits, New onset seizure Condition: Stable
[2022-06-09 11:40] LABS: PT - PROTHROMBIN TIME 10.9 secs (9.9-12.6)
[2022-06-09 11:45] LABS: ALBUMIN/GLOBULIN RATIO 1.2 (1.0-2.2); BILIRUBIN,TOTAL 0.7 mg/dL (0.2-1.0); CREATININE 0.7 mg/dL (0.4-1.0); MAGNESIUM 1.7 mg/dL (1.7-2.8); POTASSIUM 4.2 mmol/L (3.5-5.0); TOTAL PROTEIN 7.3 g/dL (6.7-8.2)
[2022-06-09 11:47] LABS: PARTIAL THROMBOPLASTIN TIME 23.3 secs (24.9-33.3)
[2022-06-09] MEDS ORDERED: ONDANSETRON 4 MG/2 ML VIAL IVP STA (11:48)
--- NOTE | 2022-06-09 11:49 | CT Report ---
PROCEDURE: CT brain without contrast INDICATIONS: Right-sided weakness, aphasia TECHNIQUE: Noncontrast 4.5 mm thick angled axial sections acquired from the foramen magnum to the vertex, with c oronal reformats. For radiation dose reduction, the following was used: automated exposure control, adjustment of mA and/or kV according to patient size. COMPARISON: None. FINDINGS: Image quality: Excellent. CSF spaces: Basal cisterns are patent. No extra-axial fluid collections. Ventricles are normal in size and shape. Brain: No midline shift. No intracranial masses or hemorrhage. Moderate atrophy and white matter ch ronic ischemic change present. There is a wedge-shaped hypodensity with sulcal effacement in the left superior parietal lobule resulting in sulcal effacement and blurring of the saba-white junction. Not able involvement of the postcentral gyrus No evidence of hemorrhagic conversion. No mass effect. Athe rosclerotic calcification in the cavernous segments of both internal carotid arteries as well as the intradural vertebral arteries Skull and face: Calvarium and visualized facial bones are intact, without suspicious lesions. Sinuses: Visualized sinuses and mastoids are clear. IMPRESSION: Probable subacute infarct involving the left superior parietal lobe including the post central gyrus. No evidence of acute hemorrhage or mass effect. This study fulfills neurological imaging criteria for inclusion or exclusion of acute stroke therapie s based on available published neurological imaging guidelines. Note: Critical results were discussed with Dr. Naik at 10:45 AM AK time on 06/09/2022 Reviewed by: Daniel Denise MD on 06/09/2022 10:47 AM AKDT Approved by: Daniel Denise MD on 06/09/2022 10:47 AM AKDT Station ID: [id number]
--- NOTE | 2022-06-09 11:53 | CT Report ---
PROCEDURE: CT angiogram brain with contrast INDICATIONS: right weakness, aphasia CONTRAST: 80ml Omnipaque 300 TECHNIQUE: After the administration of intravenous contrast, 1 mm thick sections acquired through the [place]. Postcontrast 4.5 mm thick sections then re-acquired from the foramen magnum to the vertex. osuwxyb-kuxhumerc-zswxyefxpy (MIP) and/or volume rendering reformats were acquired of the central int racranial vasculature. For radiation dose reduction, the following was used: automated exposure con trol, adjustment of mA and/or kV according to patient size. COMPARISON: None FINDINGS: Image quality: Excellent. Anterior circulation: Scarring vascular calcification noted in the cavernous segments of both internal carotid arteries wit hout stenosis or aneurysm. The flow within the paired anterior cerebral arteries is normal and symme tric. The flow within the middle cerebral arteries is normal and symmetric. The anterior communicat ing artery is seen. No aneurysms are seen. Posterior circulation: Atherosclerotic vascular calcification noted associated with the intradural p ortions of both vertebral arteries. Visualized portions of the vertebral arteries demonstrate normal caliber, and join to form a normal appearing basilar artery. Flow within the posterior cerebral david swati is normal and symmetric. No aneurysms are seen. IMPRESSION: Mild atherosclerotic vascular calcification without significant stenosis, large vessel occlusion or a neurysm Reviewed by: Daniel Denise MD on 06/09/2022 10:52 AM ESHA Approved by: Daniel Denise MD on 06/09/2022 10:52 AM ESHA Station ID: [id number]
--- NOTE | 2022-06-09 11:56 | CT Report ---
PROCEDURE: ANGIO NECK W INDICATIONS: right weakness, aphasia CONTRAST: 80ml Omnipaque 300 TECHNIQUE: After the administration of intravenous contrast, 1.5 mm axial sections acquired from the aortic arch to the [place]. Coronal maximum intensity projection (MIP) and/or volume rendering reforma ts were then performed. For radiation dose reduction, the following was used: automated exposure co ntrol, adjustment of mA and/or kV according to patient size. COMPARISON: 04/23/2022 FINDINGS: Image quality: Excellent. Carotid system: The great vessels demonstrate a conventional anatomy as they arise from the aortic a rch. The origins of the common carotid arteries appear patent. Calcified and noncalcified atheroscle rotic plaque in both mid common carotids noted less than 20% stenosis on the left. Plaque in both pro ximal ICA present without stenosis.. The internal carotid arteries demonstrate normal caliber and co urse. Posterior circulation: The origins of the vertebral arteries appear patent. The more superior porti ons of the vertebral arteries demonstrate normal course and caliber. They join to form a normal appe aring basilar artery. Soft tissues: Visualized neck soft tissues demonstrate no suspicious abnormalities. The thyroid is normal in size and there are no incidental findings. Bones: No suspicious bony lesions. Visualized cervical spine appears normally aligned. IMPRESSION: Multifocal atherosclerotic plaque without significant stenosis throughout the exam utilizing NASCET c alethea The estimate of stenosis included in the report of the imaging study was calculated using the NASCET method Reviewed by: Daniel Denise MD on 06/09/2022 10:55 AM ESHA Approved by: Daniel Denise MD on 06/09/2022 10:55 AM AKEVI Station ID: [id number]
--- OUTSIDE RECORDS SUMMARY | 2022-06-09 11:56 | EXTERNAL MEDICAL SUMMARY RPT | Continuity of Care Document ---
:1940 Author Organization [facility] Address [address] [place] [address] Phone Care Team Providers Name Role Phone Unavailable Unavailable Unavailable Fernando Brito Md Unavailable Unavailable Casey Patient Registrar, Kiran Unavailable Unavailab le Allergies No information. Encounters No information. Functional Status No information. Immunizations No information. Medications date description facility 2022-05-05 00:00 propranolol [facility] 2022-05-05 00:00 propranolol [facility] Prim redd [facility] 2022-05-07 00:00 propranolol [facility] Prim redd [facility] 2022-05-05 00:00 lisinopril [facility] Prim redd [facility] 2022-05-05 00:00 lisinopril [facility] Prim redd [facility] 2022-05-07 00:00 lisinopril [facility] Prim redd [facility] 2022-05-05 00:00 lisinopril [facility] Prim redd [facility] 2022-05-05 00:00 lisinopril [facility] Prim redd [facility] 2022-05-07 00:00 lisinopril [facility] Prim redd [facility] 2022-05-05 00:00 lisinopril [facility] Prim redd [facility] 2022-05-05 00:00 lisinopril [facility] Prim redd [facility] 2022-05-07 00:00 lisinopril [facility] Prim redd [facility] 2022-05-05 00:00 sulfamethoxazole-trimethoprim [facility] 2022-05-05 00:00 sulfamethoxazole-trimethoprim [facility] 2022-05-05 00:00 blood sugar diagnostic [facility] 2022-05-05 00:00 blood sugar diagnostic [facility] 2022-05-07 00:00 blood sugar diagnostic [facility] 2022-05-05 00:00 propranolol [facility] 2022-05-05 00:00 propranolol [facility] Prim redd [facility] 2022-05-07 00:00 propranolol [facility] redd [facility] 2022-05-05 00:00 blood-glucose meter Walk-In Clinic [facility] mamie 2022-05-05 00:00 blood-glucose meter Walk-In Clinic [facility] 2022-05-07 00:00 blood-glucose meter Walk-In Clinic [facility] 2022-05-05 00:00 lisinopril [facility] Prim redd [facility] 2022-05-05 00:00 lisinopril [facility] Prim redd [facility] [place] 2022-05-07 00:00 lisinopril [facility] Prim redd [facility] [place] 2022-05-05 00:00 sulfamethoxazole-trimethoprim [facility] 2022-05-05 00:00 lisinopril [facility] redd [facility] 2022-05-05 00:00 lisinopril [facility] Prim redd [facility] 2022-05-07 00:00 lisinopril [facility] Prim redd [facility] 2022-05-05 00:00 lisinopril [facility] Prim redd [facility] 2022-05-05 00:00 lisinopril [facility] Prim redd [facility] 2022-05-07 00:00 lisinopril [facility] Prim redd [facility] [place] 2022-05-05 00:00 propranolol [facility] Prim redd [facility] 2022-05-05 00:00 propranolol [facility] Prim redd [facility] 2022-05-07 00:00 propranolol [facility] Prim redd [facility] 2022-05-05 00:00 lisinopril [facility] Prim redd [facility] 2022-05-05 00:00 lisinopril [facility] Prim redd [facility] 2022-05-07 00:00 lisinopril [facility] Prim redd [facility] 2022-05-05 00:00 lisinopril [facility] Prim redd [facility] 2022-05-05 00:00 lisinopril [facility] Prim redd [facility] 2022-05-07 00:00 lisinopril [facility] Prim redd [facility] 2022-05-05 00:00 blood-glucose meter Walk-In Clinic [facility] 2022-05-05 00:00 blood-glucose meter Walk[facility]In [facility] 2022-05-07 00:00 blood-glucose meter Walk[facility]In [facility] 2022-05-05 00:00 blood sugar diagnostic [facility] 2022-05-05 00:00 blood sugar diagnostic [facility] 2022-05-07 00:00 blood sugar diagnostic [facility] 2022-05-05 00:00 sulfamethoxazole-trimethoprim [facility] 2022-05-05 00:00 propranolol [facility] Prim redd [facility] 2022-05-05 00:00 propranolol [facility] Prim redd [facility] 2022-05-07 00:00 propranolol [facility] Prim redd [facility] 2022-05-05 00:00 blood sugar diagnostic [facility] 2022-05-05 00:00 blood sugar diagnostic [facility] 2022-05-07 00:00 blood sugar diagnostic [facility] 2022-05-05 00:00 blood-glucose meter Walk[facility]In [facility] 2022-05-05 00:00 blood-glucose meter Walk[facility]In [facility] 2022-05-07 00:00 blood-glucose meter Walk[facility]In Clinic [facility] Problems date description facility 2022-05-05 00:00 Urinary tract infectious disease [facility] 2022-05-05 00:00 Urinary tract infection, site not [facility] & specified [facility] Procedures date description facility 2022-05-05 00:00 Visit Code Hold Walk[facility] Results/Labs test date author facility value unit interpret ation Result panel 1 (unknown) (no date) (unknown) Walk-In (no value) (units (unk nown) Clinic Primary unknown) [facility] Result panel 2 (unknown) (no date) (unknown) Walk-In (no value) (units (unk nown) Clinic Primary unknown) [facility] Result panel 3 (unknown) (no date) (unknown) Walk-In (no value) (units (unk nown) Clinic Primary unknown) [facility] Result panel 4 (unknown) (no date) (unknown) Walk-In (no value) (units ([facility] nown) Clinic [facility] unknown[facility] Result panel 5 (unknown) (no date) (unknown) Walk-In (no value) (units ([facility] nown) [facility] unknown[facility] Result panel 6 (unknown) (no date) (unknown) Walk-In (no value) (units ([facility] nown) Clinic Primary unknown) [facility] Result panel 7 (unknown) (no date) (unknown) Walk-In (no value) (units ([facility] nown) Clinic [facility] unknown[facility] Result panel 8 (unknown) (no date) (unknown) Walk-In (no value) (units ([facility] nown) [facility] unknown[facility] Result panel 9 (unknown) (no date) (unknown) Walk-In (no value) (units ([facility] nown) [facility] unknown[facility] Result panel 10 (unknown) (no date) (unknown) Walk-In (no value) (units ([facility] nown) [facility] unknown[facility] Result panel 11 (unknown) (no date) (unknown) Walk-In (no value) (units ([facility] nown) [facility] unknown[facility] Result panel 12 (unknown) (no date) (unknown) Walk-In (no value) (units ([facility] nown) [facility] unknown[facility] Result panel 13 (unknown) (no date) (unknown) Walk[facility]In (no value) (units ([facility] nown) [facility] Primary unknown[facility] Result panel 14 (unknown) (no date) (unknown) Walk-In (no value) (units ([facility] nown) [facility] unknown[facility] Result panel 15 (unknown) (no date) (unknown) Walk-In (no value) (units ([facility] nown) Clinic Primary unknown) [facility] Result panel 16 (unknown) (no date) (unknown) Walk-In (no value) (units ([facility] nown) [facility] Primary unknown) [facility] Result panel 17 (unknown) (no date) (unknown) Walk-In (no value) (units ([facility] nown) [facility] unknown[facility] Result panel 18 (unknown) (no date) (unknown) Walk-In (no value) (units ([facility] nown) [facility] unknown[facility] Result panel 19 (unknown) (no date) (unknown) Walk-In (no value) (units ([facility] nown) [facility] unknown[facility] Result panel 20 (unknown) (no date) (unknown) Walk-In (no value) (units ([facility] nown) [facility] unknown[facility] Result panel 21 (unknown) (no date) (unknown) Walk-In (no value) (units ([facility] nown) [facility] unknown[facility] Result panel 22 (unknown) (no date) (unknown) Walk-In (no value) (units ([facility] nown) [facility] Primary unknown[facility] Result panel 23 (unknown) (no date) (unknown) Walk-In (no value) (units ([facility] nown) [facility] unknown[facility] Result panel 24 (unknown) (no date) (unknown) Walk-In (no value) (units ([facility] nown) [facility] unknown[facility] Result panel 25 (unknown) (no date) (unknown) Walk-In (no value) (units ([facility] nown) [facility] unknown[facility] Result panel 26 (unknown) (no date) (unknown) Walk-In (no value) (units ([facility] nown) [facility] Result panel 27 (unknown) (no date) (unknown) Walk-In (no value) (units ([facility] nown) [facility] unknown[facility] Result panel 28 (unknown) (no date) (unknown) Walk-In (no value) (units ([facility] nown) [facility] Result panel 29 (unknown) (no date) (unknown) Walk-In (no value) (units ([facility] nown) [facility] unknown[facility] Result panel 30 (unknown) (no date) (unknown) Walk-In (no value) (units ([facility] nown) [facility] unknown[facility] Result panel 31 (unknown) (no date) (unknown) Walk-In (no value) (units ([facility] nown) Clinic [facility] unknown[facility] Result panel 32 (unknown) (no date) (unknown) Walk-In (no value) (units ([facility] nown) [facility] unknown[facility] Result panel 33 (unknown) (no date) (unknown) Walk-In (no value) (units ([facility] nown) [facility] unknown[facility] Result panel 34 (unknown) (no date) (unknown) Walk-In (no value) (units ([facility] nown) [facility] unknown[facility] Result panel 35 (unknown) (no date) (unknown) Walk-In (no value) (units ([facility] nown) [facility] unknown[facility] Result panel 36 (unknown) (no date) (unknown) Walk-In (no value) (units ([facility] nown) [facility] unknown[facility] Result panel 37 (unknown) (no date) (unknown) Walk-In (no value) (units ([facility] nown) [facility] unknown[facility] Result panel 38 (unknown) (no date) (unknown) Walk-In (no value) (units ([facility] nown) [facility] unknown[facility] Result panel 39 (unknown) (no date) (unknown) Walk-In (no value) (units ([facility] nown) [facility] Result panel 40 (unknown) (no date) (unknown) Walk-In (no value) (units ([facility] nown) [facility] Result panel 41 (unknown) (no date) (unknown) Walk-In (no value) (units ([facility] nown) [facility] unknown[facility] Result panel 42 (unknown) (no date) (unknown) Walk-In (no value) (units (unk nown) [facility] unknown[facility] Result panel 43 (unknown) (no date) (unknown) Walk-In (no value) (units (unk nown) [facility] Primary unknown) [facility] Result panel 44 (unknown) (no date) (unknown) Walk-In (no value) (units (unk nown) [facility] Primary unknown) [facility] Result panel 45 (unknown) (no date) (unknown) Walk-In (no value) (units (unk nown) [facility] Primary unknown) [facility] Result panel 46 (unknown) (no date) (unknown) Walk-In (no value) (units (unk nown) [facility] unknown[facility] Result panel 47 (unknown) (no date) (unknown) Walk-In (no value) (units (unk nown) [facility] unknown[facility] Result panel 48 (unknown) (no date) (unknown) Walk-In (no value) (units (unk nown) [facility] unknown[facility] Result panel 49 (unknown) (no date) (unknown) Walk-In (no value) (units (unk nown) [facility] unknown[facility] Result panel 50 (unknown) (no date) (unknown) Walk-In (no value) (units (unk nown) [facility] Primary unknown[facility] Result panel 51 (unknown) (no date) (unknown) Walk-In (no value) (units (unk nown) [facility] unknown[facility] Result panel 52 (unknown) (no date) (unknown) Walk-In (no value) (units (unk nown) [facility] unknown[facility] Result panel 53 (unknown) (no date) (unknown) Walk-In (no value) (units ([facility] nown) [facility] unknown[facility] Result panel 54 (unknown) (no date) (unknown) Walk-In (no value) (units (unk nown) [facility] unknown[facility] Result panel 55 (unknown) (no date) (unknown) Walk-In (no value) (units (unk nown) [facility] unknown[facility] Result panel 56 (unknown) (no date) (unknown) Walk-In (no value) (units (unk nown) [facility] unknown) [facility] Result panel 57 (unknown) (no date) (unknown) Walk-In (no value) (units (unk nown) [facility] unknown[facility] Result panel 58 (unknown) (no date) (unknown) Walk-In (no value) (units (unk nown) [facility] unknown[facility] Result panel 59 (unknown) (no date) (unknown) Walk-In (no value) (units (unk nown) [facility] unknown[facility] Result panel 60 (unknown) (no date) (unknown) Walk-In (no value) (units (unk nown) [facility] Result panel 61 (unknown) (no date) (unknown) Walk-In (no value) (units (unk nown) [facility] unknown[facility] Result panel 62 (unknown) (no date) (unknown) Walk-In (no value) (units (unk nown) [facility] unknown[facility] Result panel 63 (unknown) (no date) (unknown) Walk-In (no value) (units (unk nown) [facility] unknown[facility] Result panel 64 (unknown) (no date) (unknown) Walk-In (no value) (units (unk nown) [facility] Primary unknown) [facility] Result panel 65 (unknown) (no date) (unknown) Walk-In (no value) (units (unk nown) [facility] Primary unknown) [facility] Result panel 66 (unknown) (no date) (unknown) Walk-In (no value) (units (unk nown) [facility] Primary unknown[facility] Result panel 67 (unknown) (no date) (unknown) Walk-In (no value) (units (unk nown) [facility] Primary unknown[facility] Result panel 68 (unknown) (no date) (unknown) Walk-In (no value) (units (unk nown) [facility] Result panel 69 (unknown) (no date) (unknown) Walk-In (no value) (units (unk nown) [facility] unknown[facility] Result panel 70 (unknown) (no date) (unknown) Walk-In (no value) (units (unk nown) [facility] unknown[facility] Result panel 71 (unknown) (no date) (unknown) Walk-In (no value) (units (unk nown) [facility] Primary unknown) [facility] Result panel 72 (unknown) (no date) (unknown) Walk-In (no value) (units (unk nown) [facility] Primary unknown[facility] Result panel 73 (unknown) (no date) (unknown) Walk-In (no value) (units (unk nown) [facility] Primary unknown) [facility] Result panel 74 (unknown) (no date) (unknown) Walk-In (no value) (units (unk nown) Clinic Primary unknown) [facility] Result panel 75 (unknown) (no date) (unknown) Walk-In (no value) (units (unk nown) Clinic Primary unknown) [facility] Result panel 76 (unknown) (no date) (unknown) Walk-In (no value) (units (unk nown) Clinic Primary unknown) [facility] Result panel 77 (unknown) (no date) (unknown) Walk-In (no value) (units (unk nown) Clinic Primary unknown) [facility] Result panel 78 (unknown) (no date) (unknown) Walk-In (no value) (units (unk nown) Clinic Primary unknown) [facility] Social History date description facility 2022-05-05 00:00 Never smoker Walk-In Clinic [facility] Vital Signs date measurement value units 2022-05-05 00:00 BMI 28.45 kg/m2 2022-05-05 00:00 BP_diastolic 63 mmHg 2022-05-05 00:00 BP_systolic 128 mmHg 2022-05-05 00:00 heart_rate 72 /min 2022-05-05 00:00 height_metric 157.48 cm 2022-05-05 00:00 height_standard 62 in 2022-05-05 00:00 respiration_rate 16 /min 2022-05-05 00:00 temperature_metric 36.83 C 2022-05-05 00:00 temperature_standard 98.3 F 2022-05-05 00:00 weight_metric 70.31 kg 2022-05-05 00:00 weight_standard 155 lb
[2022-06-09] MEDS ORDERED: levETIRAcetam 500 MG/5 ML VIAL IVP STA ×2 (12:14→14:15)
[2022-06-09] MEDS ORDERED: LORazepam 2 MG/ML VIAL IVP STA (12:14)
[2022-06-09] MEDS ORDERED: PROCHLORPERAZINE 10 MG/2 ML VIAL IVP STA (12:15)
[2022-06-09] MEDS ORDERED: LABETALOL 20 MG/4 ML SYRINGE IVP STA (12:56)
[2022-06-09] MEDS ORDERED: SODIUM CHLORIDE FLUSH 0.9% 10 ML SYRINGE IVP PRN (14:15)
[2022-06-09] MEDS ORDERED: ONDANSETRON 4 MG/2 ML VIAL IVP PRN (14:15)
[2022-06-09] MEDS ORDERED: oxyCODONE 5 MG TABLET PO PRN (14:15)
[2022-06-09] MEDS ORDERED: PROMETHAZINE 25 MG/1 ML VIAL IM PRN (14:15)
[2022-06-09] MEDS ORDERED: ONDANSETRON ODT 4 MG TABLET TL PRN (14:15)
[2022-06-09] MEDS ORDERED: ACETAMINOPHEN 325 MG TABLET PO PRN (14:15)
--- NOTE | 2022-06-09 14:20 | HISTORY & PHYSICAL EXAMINATION ---
Chief Complaint - Chief Complaint Chief Complaint: stroke like symptoms History of Present Illness - Admitted From Admitted From:: home via EMS - History Obtained From Records Reviewed: [facility] History obtained from: Dr. Naik Exam Limitations: patient is sleepy and dysarthric - History of Present Illness HPI Comment/Other: This unfortunate female had a stroke last year, December, that left her with residual. She then presented in April of this year feeling that she was having yet another stroke but her problems came from symptomatic hyponatremia. Symptoms resolved once her sodium was normal. Today she comes back in again with acute on chronic right-sided weakness and expressive aphasia. Her called an ambulance and she was brought in for evaluation. She was severely hypertensive at 239/110. Respirations 14. 98% on room air. Heart rate 92. She was in the ER within 30 minutes of symptoms starting. He noted that she was inattentive, had trouble speaking, not following commands. Blank stare. Code stroke was called, and stroke teleneurology was consulted. Head CT and CT angiogram show no change from previous CT. She had a subacute infarct involving the left superior parietal lobe including the postcentral gyrus with no acuteness. No significant stenosis that we had to treat. She had twitching movement associated with this so ER doctor and teleneurology are postulated she may be having seizures. As such teleneurology has requested that she be placed in observation and started on Keppra. Dr. Naik requested that she be loaded with 1000 mg whereas teleneurology requested [address] Naik then wrote for another 1000 mg. However no Keppra was given to the patient in the ER during her stay. By the time she received treatment on [facility] nursing was wondering if they nee ded to follow through on those orders. Teleneurology is also requesting an MRI be done. MRI was done and she has a small old left parietal occipital infarct. No acute or subacute infarct. Age-related loss and small vessel ischemic changes. Multiple tiny punctate areas of hemosiderin potentially indicating evidence of amyloid angiopathy. History - Past Medical History Cardiovascular: reports: Hypertension, High cholesterol Neuro: reports: CVA Endocrine/Autoimmune: reports: Type 2 diabetes GI: reports: GERD, Chronic diarrhea HEENT: reports: None Psych: reports: Anxiety, Panic attacks MRSA Hx?: No Meds/Allgy - Home Medications Home Medications: Ambulatory Orders Medication Instructions Recorded Confirmed Metformin HCl 1,000 mg PO BIDWM 03/12/16 06/09/22 Simvastatin 60 mg PO QPM 03/12/16 06/09/22 glipiZIDE [Glipizide] 10 mg PO DAILY 03/12/16 06/09/22 Clopidogrel [Plavix] 75 mg PO DAILY 04/22/22 06/09/22 Metoprolol Succinate [Toprol Xl] 50 mg PO DAILY #30 tablet 04/28/22 06/09/22 lisinopriL [Lisinopril] 10 mg PO DAILY #30 tablet 04/28/22 06/09/22 Sodium Chloride [Salt Tab] 1 gm PO DAILY 06/09/22 06/09/22 levETIRAcetam [Keppra] 500 mg PO BID #60 ea 06/10/22 - Allergies Allergies/Adverse Reactions: Allergies Allergy/AdvReac Type Severity Reaction Status Date / Time NSAIDS (Non-Steroidal Allergy Respiratory Verified 06/09/22 11:38 Anti-Inflamma Review of Systems - Other Findings Other Findings: Unable to ascertain at this time because of the patient's sedation Prior Level of Functionality: Reliant on her partner for help with feeding, dressing. She gets home health physical therapy for speech, strengthening and mobility Exam - Vital Signs Reviewed Vital Signs: Yes Vital Signs: Vital Signs x48h Pulse Resp BP Pulse Ox 06/09/22 12:08 92 14 239/110 H 98 - Physical Exam General Appearance: positive: Lethargic (Red-faced, with occasional twitching of shoulders, unresponsive to my voice but responsive to sternal rub. Opens her eyes, wrinkles her nose and furrows her brow) Eyes Bilateral: positive: PERRL (but sluggish), EOMI ENT: positive: Pharynx nml, No signs of dehydration Neck: positive: No JVD. negative: Stiff neck Respiratory: positive: No respiratory distress. negative: Wheezes, Rales, Rhonchi Cardiovascular: positive: Regular rate & rhythm Peripheral Pulses: positive: 1+ Abdomen: positive: Non-tender, No organomegaly, Nml bowel sounds, No distention Skin: positive: Warm, Dry, Other (acne rosacea) Extremities: positive: Full ROM (when she withdraws to painful stimuli of fingers and toes), No pedal edema Neurologic/Psychiatric: positive: Other (s/p ativan in ER and deeply sedated. moves spontaneously and mumbles but eyes closed) Conclusion/Plan - Problem List (1) Neurocognitive deficits Conclusion/Plan: With the differential being stroke versus new onset seizures. Both CT and MRI confirmed that she has old findings on brain but no new acute findings. Dr. Naik and I did discuss whether this patient should be transferred to higher level of care for an EEG. However I think that it is possible for us to place this patient in observation, started on Keppra, stabilize her seizures, and she can get the EEG in the outpatient setting. Plan: Observation status Keppra 500 p.o. twice daily with first dose tonight Keppra 1000 mg IV push now MRI already done as requested by Telestroke continue plavix and statin (2) DM type 2 (diabetes mellitus, type 2) Conclusion/Plan: Home medications include glipizide and metformin. I will hold low-dose for right now. Give her sliding scale insulin before meals. Start Lantus 15 units at night. Check A1c in the morning. Qualifiers: Diabetes mellitus cco insulin use: without cco use Diabetes mellitus complication status: without complication Qualified Code(s): E11.9 - Type 2 diabetes mellitus without complications (3) Hypertensive emergency Conclusion/Plan: She was treated as orthostatic hypotension in April of this year. Cortisol was normal in April of this year. TSH is slightly over suppressed at 0.62 in April of this year. Her medication list still lists salt tablets that were being used to treat her orthostatic hypotension. With today's visit, she was severely hypertensive when she presented to the emergency room. She continues to be hypertensive into the afternoon. Her hypertension may be the reason she has altered mental status and possible seizure. PRES presents as rapid onset of symptoms including headaches, seizures, altered consciousness, and visual disturbances. Unfortunately I am not able to get a complete history at this ti me. Her significant other/caregiver his daughter return to home. I have called the phone numbers in the chart but they are not set up for messaging system. I would like to verify she is taking her BP meds. I have resumed her Zestril 5 mg daily and metoprolol succinate 50 mg daily. In the ER she needed enalapril IV and labetalol IV Plan:Hydralazine 10 mg IVP q8h prn systolic >180. - Lab Results Lab results reviewed: Yes Fish Bones: 06/09/22 11:30 06/09/22 11:30 - Diagnostic Imaging Results Diagnostic Imaging Results: positive: Final report reviewed - EKG Results EKG Interpreted Independently: No Core Measures - Anticipated LOS I expect patient to be DC'd or transferred within 96 hours.: Yes - DVT/VTE - Prophylaxis VTE/DVT Device ordered at admit?: Yes
--- NOTE | 2022-06-09 15:33 | PHARMACY PROGRESS NOTE ---
- Best Possible Medication History Admit Date and Time: 06/09/22 1413 Processed by: Pharmacy Medication History completed: Yes Patient Interview: Completed Secondary Source(s): Spouse/Significant other (spoke to Xavier (boyfriend)) As the person ultimately responsible for medication therapy, providers are able to order a medication from an existing home medication list in [facility] via the "Reconcile Routine" prior to Confirmation of that medication by logistics support. Such practice is discouraged except when the physician, in their clinical judgment, deems that a medical need exists for a medication without regard to previous use.
--- NOTE | 2022-06-09 16:49 | MRI Report ---
PROCEDURE: BRAIN WO INDICATIONS: new symptoms of stroke TECHNIQUE: Noncontrast axial T1 spin echo, axial T2 fast spin echo, sagittal and axial FLAIR, coronal T2 fast sp in echo, axial gradient echo, axial diffusion and ADC through the brain. COMPARISON: Brain MRI with and without contrast ON 02/28/2022, CT head without contrast dated 06/10/19. FINDINGS: Image quality: Excellent. CSF Spaces: Basal cisterns are patent. No extra-axial fluid collections. Ventricles are normal in size and shape. Brain: No intracranial masses or acute hemorrhage. Lopez/white matter interface is normal. Brainste m appears normal. Diffusion-weighted images demonstrate no acute ischemic insult. There is a chronic small left parieto-occipital infarct, as before. There is no evidence of an acute or subacute infarc t. Age-related volume loss and mild to moderate small vessel ischemic change. Tiny punctate foci of h emosiderin deposition are again noted, nonspecific. Normal intravascular flow voids are present. Skull and face: Calvarium has normal marrow signal. Orbits appear normal. Sinuses: Sinuses and mastoids are clear. IMPRESSION: 1. There is an old small left parieto-occipital infarct. 2. No acute or subacute infarct is identified. 3. Age-related finding loss and small vessel ischemic change. 4. Multiple tiny punctate areas of hemosiderin deposition are again noted, nonspecific. These may pot entially indicate evidence of amyloid angiopathy. Reviewed by: Sea Currie MD on 06/09/2022 4:48 PM PDT Approved by: Sea Currie MD on 06/09/2022 4:48 PM PDT Station ID: [id number]
[2022-06-09] MEDS: SODIUM CHLORIDE FLUSH 0.9% 10 ML SYRINGE IVP SCH (17:04)
[2022-06-09] MEDS ORDERED: hydrALAZINE INJ 20 MG/ML VIAL IVP PRN (19:02)
[2022-06-09] MEDS ORDERED: INSULIN GLARGINE-YFGN 300 UNIT/3 ML PEN SUBQ SCH (21:00)
[2022-06-09] MEDS ORDERED: ATORVASTATIN 40 MG TABLET PO SCH (21:00)
[2022-06-09] MEDS: levETIRAcetam 500 MG/5 ML UDC PO SCH (21:42)
[2022-06-09] MEDS: INSULIN LISPRO 300 UNIT/3 ML PEN SUBQ SCH (21:43)
[2022-06-09] MEDS: METOPROLOL SUCCINATE 50 MG TABLET PO SCH (21:43)
[2022-06-09] MEDS: lisinopriL 5 MG TABLET PO SCH (21:44)
[2022-06-10] MEDS: SODIUM CHLORIDE FLUSH 0.9% 10 ML SYRINGE IVP SCH ×2 (00:25→08:09)
[2022-06-10] MEDS: INSULIN LISPRO 300 UNIT/3 ML PEN SUBQ SCH ×2 (08:00→11:59)
[2022-06-10] MEDS: levETIRAcetam 500 MG/5 ML UDC PO SCH (08:09)
[2022-06-10] MEDS: lisinopriL 5 MG TABLET PO SCH (08:09)
[2022-06-10] MEDS: METOPROLOL SUCCINATE 50 MG TABLET PO SCH (08:09)
[2022-06-10 08:26] LABS: ESTIMATED AVERAGE GLUCOSE 186 mg/dL (70-100); HEMOGLOBIN A1c% 8.1 % (4.27-6.07)
[2022-06-10] MEDS ORDERED: lisinopriL 5 MG TABLET PO SCH (09:00)
[2022-06-10] MEDS ORDERED: CLOPIDOGREL 75 MG TABLET PO SCH (09:00)
[2022-06-10] MEDS ORDERED: METOPROLOL SUCCINATE 50 MG TABLET PO SCH (09:00)
--- NOTE | 2022-06-10 10:53 | Discharge Plan ---
Discharge Plan Problem Reviewed?: Yes Disposition: Home Health Service Condition: Stable Prescriptions: levETIRAcetam [Keppra] 500 mg PO BID #60 ea Diet: Diabetic Activity Restrictions: Activity as Tolerated Shower Restrictions: No Driving Restrictions: Yes (no driving) Assistance Devices: Walker Instruction Topics: Levetiracetam tablets, Epilepsy Safety During Seizure, Epilepsy Dx Health Concerns: She is an 81-year-old female who unfortunately has moderate cognitive deficits due to a stroke from last year. This is left her with word finding problems and some right body residual weakness. She was hospitalized in April of this year because a low blood sodium caused her to have confusion. She returned back to baseline when her sodium became normal. She now returns today because her caregiver/significant other noted that she was having worsening slurred speech, worsening right body weakness. In the emergency room her blood pressure was very very high. She was seeming to have twitching of her body that indicated she might be having a mild seizure. CT of the head and MRI of the head confirmed that she has had an old stroke but no new stroke. Plan of Treatment: She is discharged to return to home now that she is at baseline. She knows that she is in the hospital. Continues to have word finding difficulties but is awake, alert. Follows commands. We did try and call her partner/significant other/caregiver but there was no answer at the phone numbers given and the voicemail is not set up to receive messages. She is to be started on Keppra 500 mg twice a day per neurology consultation recommendation. She will need to be seen by her primary care provider in the next 1 to 2 weeks and an outpatient EEG should be set up to evaluate how severe the seizures could be. We will be resuming home health physical therapy, Occupational Therapy, speech therapy to continue to help her with weakness, cognitive deficits, and speech. Care Goals: To return to her baseline status of being able to dress herself, feed herself, and express herself so that she is not frustrated. Assessment: Patient is alert, oriented to the fact that she is in the hospital, but does not understand why, and instructions were shared with her caregiver/significant other. Follow-Up Care: Home Health - PT, Home Health - OT, Home Health - ST No Smoking: If you smoke, Please STOP! Call for help. Follow-up with: SHALA JACKSON ARNP [Primary Care Provider] -
--- NOTE | 2022-06-10 11:12 | DISCHARGE SUMMARY ---
"Discharge Summary Admit Date: 06/09/22 Discharge Date: 06/10/22 Discharging Provider: Nedra Quijano MD Primary Care Provider: CHEIKH Fisher Code Status: Attempt Resuscitation Condition at Discharge: Stable Discharge Disposition: 06 Home Health Service - DIAGNOSES Discharge Diagnoses with Status of Each Condition: 1. Strokelike symptoms 2. Hypertensive urgency 3. Type 2 diabetes mellitus, without complications, uncontrolled with hyperglycemia, without long-term use of insulin 4. Chronic hyponatremia - HPI History of Present Illness: This unfortunate female had a stroke last year, December, that left her with residual. She then presented in April of this year feeling that she was having yet another stroke but her problems came from symptomatic hyponatremia. Symptoms resolved once her sodium was normal. Today she comes back in again with acute on chronic right-sided weakness and expressive aphasia. Her called an ambulance and she was brought in for evaluation. She was severely hy pertensive at 239/110. Respirations 14. 98% on room air. Heart rate 92. She was in the ER within 30 minutes of symptoms starting. He noted that she was inattentive, had trouble speaking, not following commands. Blank stare. Code stroke was called, and stroke teleneurology was consulted. Head CT and CT angiogram show no change from previous CT. She had a subacute infarct involving the left superior parietal lobe including the postcentral gyrus with no acuteness. No significant stenosis that we had to treat. She had twitching movement associated with this so ER doctor and teleneurology are postulated she may be having seizures. As such teleneurology has requested that she be placed in observation and started on Keppra. Dr. Naik requested that she be loaded with 1000 mg wherea s teleneurology requested [address] Naik then wrote for another 1000 mg. However no Keppra was given to the patient in the ER during her stay. By [facility] was wondering if they needed to follow through on those orders. Teleneurology is also requesting an MRI be done. MRI was done and she has a small old left parietal occipital infarct. No acute or subacute infarct. Age-related loss and small vessel ischemic changes. Multiple tiny punctate areas of hemosiderin potentially indicating evidence of amyloid angiopathy. - Past Medical History Cardiovascular: reports: Hypertension, High cholesterol Neuro: reports: CVA Endocrine/Autoimmune: reports: Type 2 diabetes GI: reports: GERD, Chronic diarrhea HEENT: reports: None Psych: reports: Anxiety, Panic attacks MRSA Hx?: No - CONSULTS | PROCEDURES Procedures: Head CT and CT angiogram show no change from previous CT. She had a subacute infarct involving the left superior parietal lobe including the postcentral gyrus with no acuteness. Brain MRI had an old small left parieto-occipital infarct. No acute or subacute infarct identified. Age-related finding of loss of small vessel with small vessel ischemic changes. Multiple tiny punctate areas of hemosiderin deposition again noted. These may potentially indicate evidence of amyloid angiopathy. - HOSPITAL COURSE Hospital Course: She was placed in observation overnight. She is quite sedated from the Ativan. Speech was slurred, she was lethargic. The morning of discharge she was more awake, eyes were open. And by the afternoon of discharge she was much better. Had no recollection of what happened. Poor short-term memory. But a lucid conversation with, very pleasant. Long conversation was held with her significant other. They live in separate households but he comes over several nights a week to be with her. He is starting to realize that she is going to need 24/7 care and he is trying to figure out how that is going to happen. Because the patient has no recollection, I had a long conversation about what we thought was going on with her. Worried about seizures. We have asked him to make sure that she is seen in follow-up by her primary care provider and then referred for an outpatient EEG. She has been started on Keppra and he is to continue that. At discharge this was a pleasant elderly white female, alert, smiling. Trying to participate in the conversation. Temperature was 36.9. Heart rate 86. Blood pressure 135/49. Respirations 17. 95% on room air. Right flushed cheeks from acne rosacea. Neck is supple without bruit. Lungs are clear to auscultation and percussion. Regular rate and rhythm. The abdomen is soft, n ontender. Normal bowel sounds. Very slight right extremity strength loss in comparison to the left. But she is able to lift her arms over her head. Use her hands to feed herself. Able to get out of bed and ambulate to bathroom with standby assist. - ALLERGIES Allergies/Adverse Reactions: Allergies Allergy/AdvReac Type Severity Reaction Status Date / Time NSAIDS (Non-Steroidal Allergy Respiratory Verified 06/09/22 11:38 Anti-Inflamma - MEDICATIONS Home Medications: Ambulatory Orders Medication Instructions Recorded Confirmed Metformin HCl 1,000 mg PO BIDWM 03/12/16 06/09/22 Simvastatin 60 mg PO QPM 03/12/16 06/09/22 glipiZIDE [Glipizide] 10 mg PO DAILY 03/12/16 06/09/22 Clopidogrel [Plavix] 75 mg PO DAILY 04/22/22 06/09/22 Metoprolol Succinate [Toprol Xl] 50 mg PO DAILY #30 tablet 04/28/22 06/09/22 lisinopriL [Lisinopril] 10 mg PO DAILY #30 tablet 04/28/22 06/09/22 Sodium Chloride [Salt Tab] 1 gm PO DAILY 06/09/22 06/09/22 levETIRAcetam [Keppra] 500 mg PO BID #60 ea 06/10/22 - LABS Result Diagrams: 06/09/22 11:30 06/10/22 04:40"
[2022-06-10 11:36] LABS: CALCIUM 8.4 mg/dL (8.5-10.3); CREATININE 0.6 mg/dL (0.4-1.0); POTASSIUM 4.1 mmol/L (3.5-5.0)
[2022-06-10 12:30] VITALS: BP 135/49
== END 2022-06-10 13:30 | disposition home health service (06) ==
LOC: EDUNIT# → ED 10:59 → MS2 14:15
PROVIDERS: ADMIT Specialist; ATTEND Specialist
DX: R47.81 Slurred speech (principal); R41.0 Disorientation, unspecified; R56.9 Unspecified convulsions; I16.0 Hypertensive urgency; E11.65 Type 2 diabetes mellitus with hyperglycemia; Z79.84 Long term (current) use of oral hypoglycemic drugs; I69.319 Unspecified symptoms and signs involving cognitive functions following cerebral infarction; I69.351 Hemiplegia and hemiparesis following cerebral infarction affecting right dominant side; R29.898 Other symptoms and signs involving the musculoskeletal system; E87.1 Hypo-osmolality and hyponatremia; I10 Essential (primary) hypertension; K21.9 Gastro-esophageal reflux disease without esophagitis; F41.9 Anxiety disorder, unspecified
CPT/HCPCS: 36415; 70450; 70496; 70498; 70551; 80048; 80053; 83036; 83690; 83735; 85025; 85610; 85730; 93005; 96374; 96375; 99285; 99291; A9270; G0378; J1815; J2060; Q9967

== ENCOUNTER 2022-09-15 09:00 | Observation (INO) | payer MEDICARE ==
--- NOTE | 2022-09-15 09:36 | ED Physician Documentation ---
PD HPI FOCAL NEURO - Stated complaint Stated Complaint: CONFUSED, SLURRED SPEECH - Chief complaint Chief Complaint: Neuro - History obtained from History obtained from: Patient, Family - History of Present Illness Timing - onset: Enter time (729), Today Timing - duration: Hours Timing - details: Abrupt onset, Still present Severity of deficit: Moderate Weakness: No: Face, Arm, Hand, Leg, Foot, Right, Left, Other Numbness: No: Face, Arm, Hand, Leg, Foot, Right, Left, Other Associated symptoms: No: Headache, Nausea / vomiting, Seizure, Syncope, Fall, Head injury, Chest pain, Neck pain, Back pain, Fever, Other Contributing factors: positive: Other (hx of hyponatremia) Baseline status: positive: A&OX3, ambulatory, indep Similar symptoms before: Diagnosis (CVA/seizure) Recently seen: Not recently seen - Additional information Additional information: 81-year-old Cass Gay has a history of hypertension, CVA, type 2 diabetes, hyponatremia and seizure. She has had stroke in December of last year leaving her with residual difficulty in organization and memory. She had expressive aphasia at that time and today she is presenting with expressive aphasia and incoordination. At 7:00 this morning she was talking in her normal fashion and at 730 she began having difficulty with expressive aphasia and ataxic gait. Review of Systems Constitutional: denies: Fever Eyes: denies: Decreased vision Ears: denies: Ear pain Nose: denies: Rhinorrhea / runny nose, Congestion Throat: denies: Sore throat Cardiac: denies: Chest pain / pressure, Palpitations Respiratory: denies: Dyspnea, Cough GI: reports: Diarrhea. denies: Nausea, Vomiting : reports: Frequency. denies: Dysuria Skin: denies: Rash Musculoskeletal: denies: Neck pain, Back pain, Extremity pain Neurologic: reports: Generalized weakness, Difficulty speaking, Confused, Altered mental status. denies: Focal weakness, Numbness, Headache, Head injury, LOC PD PAST MEDICAL HISTORY - Past Medical History Cardiovascular: Hypertension, High cholesterol Respiratory: Pneumonia Neuro: CVA Endocrine/Autoimmune: Type 2 diabetes GI: GERD, Chronic diarrhea : Other HEENT: None Psych: Anxiety, Panic attacks Musculoskeletal: None Derm: Rosacea - Past Surgical History HEENT: Cataracts - Present Medications Home Medications: Ambulatory Orders Medication Instructions Recorded Confirmed Metformin HCl 1,000 mg PO BIDWM 01/26/17 04/25/23 Simvastatin 60 mg PO QPM 03/12/16 06/09/22 glipiZIDE [Glipizide] 10 mg PO DAILY 03/12/16 06/09/22 Clopidogrel [Plavix] 75 mg PO DAILY 04/22/22 06/09/22 Metoprolol Succinate [Toprol Xl] 50 mg PO DAILY #30 tablet 04/28/22 06/09/22 lisinopriL [Lisinopril] 10 mg PO DAILY #30 tablet 04/28/22 06/09/22 Sodium Chloride [Salt Tab] 1 gm PO DAILY 06/09/22 06/09/22 levETIRAcetam [Keppra] 500 mg PO BID #60 ea 06/10/22 - Allergies Allergies/Adverse Reactions: Allergies Allergy/AdvReac Type Severity Reaction Status Date / Time NSAIDS (Non-Steroidal Allergy Respiratory Verified 06/09/22 11:38 Anti-Inflamma - Social History Does the pt smoke?: No Smoking Status: Former smoker PD ED PE NORMAL - Vitals Vital signs reviewed: Yes (hypertensive with wide pulse pressure) - General General: Well developed/nourished, Other (blank stare attempts to answer ) - HEENT HEENT: Atraumatic, PERRL, EOMI - Cardiac Cardiac: RRR, No murmur - Respiratory Respiratory: No respiratory distress, Clear bilaterally - Abdomen Abdomen: Normal bowel sounds, Soft, Non tender, Non distended, No organomegaly - Back Back: No CVA TTP, No spinal TTP - Derm Derm: Normal color, Warm and dry, No rash - Extremities Extremities: No deformity, No edema - Neuro Neuro: inbound sales advisor 2-12 intact, No motor deficit, No sensory deficit, Other (speech is articulated word serching is present. ) Eye Opening: Spontaneous Motor: Obeys Commands Verbal: Confused GCS Score: 14 - Psych Psych: Normal mood, Normal affect NIHSS - Time Time: 09:28 - Level of Consciousness Level of consciousness: (0) Alert, Keenly responsive LOC Questions: (1) Answers one Q correctly LOC Commands: (0) Performs both correctly - Gaze Best Gaze: (0) Normal - Visual Visual: (0) No loss - Facial Palsy Facial Palsy: (0) Normal, symmetrical movement - Motor Arms (both separate) Motor Arm (right): (0) No drift Motor Arm (left): (0) No drift - Motor Legs (both separate) Motor Leg (right): (0) No drift Motor Leg (left): (0) No drift - Limb Ataxia Limb Ataxia: (1) Present in 1 limb - Sensory Sensory: (0) Normal - Best Language Best Language: (1) [id number] - Dysarthria Dysarthria: (0) Normal - Extinction and Inattention (formally neg Extinction and inattention: (1) Visual,tactile,auditory,spatial, or personal inattention - Total Score/Results Total Score/Result: 4 Results - Vitals Vitals: Vital Signs - 24 hr 09/15/22 09/15/22 09/15/22 09:19 10:29 10:40 Temperature 36.7 C Heart Rate 77 75 78 Respiratory 18 18 18 Rate Blood Pressure 150/53 H 171/74 H 152/90 H O2 Saturation 97 98 98 Oxygen O2 Source [] Room air O2 Source Room air - EKG (time done) 0959 EKG releavant findings:: EKG personally interpreted by author of this note. Relevant findings are: Rate: Rate (enter#) (76) Rhythm: NSR QRS: Low voltage Compare to prior EKG: Changed from prior EKG (SPT 06-09-2022 the voltage has decreased. ) Computer interpretation: Disagree with computer (I do not see STANLEY in the inferior leads (reported as 0.6mV)) - Labs Labs: Laboratory Tests 09/15/22 09/15/22 09/15/22 09:25 09:58 09:58 WBC 6.0 RBC 3.81 L Hgb 12.8 Hct 37.5 MCV 98.4 MCH 33.6 H MCHC 34.1 RDW 12.7 Plt Count 240 MPV 8.8 Neut # (Auto) 4.5 Lymph # (Auto) 0.5 L [place] # (Auto) 0.7 Eos # (Auto) 0.3 Baso # (Auto) 0.1 Absolute Nucleated RBC 0.00 Nucleated RBC % 0.0 Sodium 126 L Potassium 4.4 Chloride 91 L Carbon Dioxide 31 Anion Gap 4.0 L BUN 9 Creatinine 0.6 Estimated GFR (MDRD) 96 Glucose 285 H POC Whole Bld Glucose 296 H Calcium 9.3 Total Bilirubin 0.6 AST 12 ALT 11 Alkaline Phosphatase 65 Total Protein 6.6 Albumin 3.8 Globulin 2.8 Albumin/Globulin Ratio 1.4 Lipase 17 - Rads (name of study) CT head Relevant Findings:: Prelim report reviewed (Impression: Stable CT evaluation of the head with changes of chronic left parietal occipital infarction with associated encephalomalacia. No evidence for acute intracranial abnormalities or acute intracranial hemorrhage. Superimposed acute infarction not excluded. Consider further eval with MRI), EMP independent interpretation of test Procedures - IVC sono (time) 1030 Bedside IVC sono: IVC measures (cm) (0.61), Profound dehydration (desication encephalopathy >3 liter deficit) PD Medical Decision Making - ED course Complexity details: reviewed old records, reviewed results, re-evaluated patient, considered differential, d/w patient, d/w family Reviewed Lab Results: We reviewed a complete blood count showing a normal white blood cell count, normal hemoglobin, hematocrit and platelets. Chemistries showed a serum sodium low at 126 and this is the lowest it has been since she was diagnosed in April of this year when her sodium went to 119. Blood glucose elevated at 296. My interpretation of these results are, the patient continues to have hyponatremia and she has elevated blood glucose. She is on a fluid restriction and she is losing additional fluid from her diabetes. My expectation with these findings is to find a patient with significant dehydration which was confirmed with the use of POCUS and interrogation of the IVC. The patient has known cerebrovascular disease and CT scanning today shows the encephalomalacia of prior infarct. This finding is consistent with what we find for the patient's response to significant dehydration. ie stroke symptoms. ED course: Cass Gay presents to the emergency department with expressive aphasia and confusion. She has a history of hyponatremia and she is on a fluid restriction. She has a history of diabetes and her diabetes is out of control. She is found to be profoundly dehydration and IV saline is begun. She is admitted into the hospital under the care of Dr. Nedra Quijano. Departure - Departure Disposition: 66 [facility] DC/Xfer Clinical Impression: Dehydration Altered mental status Qualifiers: Altered mental status type: disorientation Qualified Code(s): R41.0 - Disor ientation, unspecified Condition: Stable Forms: PCP List
[2022-09-15 10:06] LABS: BASOPHILS # (AUTO) 0.1 10^3/uL (0.0-0.1); BASOPHILS % (AUTO) 0.8 %; EOSINOPHILS # (AUTO) 0.3 10^3/uL (0.0-0.7); EOSINOPHILS % (AUTO) 4.2 %; HCT - HEMATOCRIT 37.5 % (37.0-47.0); HGB - HEMOGLOBIN 12.8 g/dL (12.0-16.0); LYMPHOCYTES # (AUTO) 0.5 10^3/uL (1.5-3.5); LYMPHOCYTES % (AUTO) 7.8 %; MEAN CORPUSCULAR HEMOGLOBIN 33.6 pg (27.0-31.0); MEAN CORPUSCULAR HGB CONC 34.1 g/dL (32.0-36.0); MEAN CORPUSCULAR VOLUME 98.4 fL (81.0-99.0); MEAN PLATELET VOLUME 8.8 fL (7.9-10.8); MONOCYTES # (AUTO) 0.7 10^3/uL (0.0-1.0); NEUTROPHILS # (AUTO) 4.5 10^3/uL (1.5-6.6); NEUTROPHILS % (AUTO) 75.7 %; PLT - PLATELET COUNT 240 10^3/uL (130-450); RED BLOOD COUNT 3.81 10^6/uL (4.20-5.40); RED CELL DISTRIBUTION WIDTH 12.7 % (12.0-15.0)
--- NOTE | 2022-09-15 10:07 | CT Report ---
PROCEDURE: Head W/O Stroke Protocol INDICATIONS: aphasia/confusion TECHNIQUE: Noncontrast 4.5 mm thick angled axial sections acquired from the foramen magnum to the vertex, with c oronal reformats. For radiation dose reduction, the following was used: automated exposure control, adjustment of mA and/or kV according to patient size. COMPARISON: 06/09/2022, 04/23/2022. FINDINGS: Image quality: Diagnostic. CSF spaces: Basal cisterns are patent. No extra-axial fluid collections. Ventricles are stable in size and shape. Brain: No midline shift. No intracranial masses or acute intracranial hemorrhage. Redemonstration of age-related senescent changes and sequela of chronic small vessel ischemic disease. Volume loss. R edemonstration of left parieto-occipital infarction with mild evolution of associated encephalomalaci a. Lopez-white matter interface is otherwise normal. Skull and face: Calvarium and visualized facial bones are intact, without suspicious lesions. Sinuses: Scattered sphenoid sinus mucosal thickening. Remaining paranasal sinuses and mastoids appear clear. IMPRESSION: Stable CT evaluation of the head with changes of chronic left parieto-occipital infarction with assoc iated encephalomalacia. No evidence for acute intracranial abnormalities or acute intracranial hemorr cruz. Superimposed acute infarction not excluded. Consider further evaluation with MRI if clinically needed. Findings were discussed with ordering provider, Dr. Rdz, on 09/15/2022 at 1003 hours. This study fulfills neurological imaging criteria for inclusion or exclusion of acute stroke therapie s based on available published neurological imaging guidelines. Reviewed by: Angel Velazco MD on 09/15/2022 10:06 AM PDT Approved by: Angel Velazco MD on 09/15/2022 10:06 AM PDT Station ID: [id number]
[2022-09-15 10:16] LABS: ALBUMIN 3.8 g/dL (3.2-5.5); ALBUMIN/GLOBULIN RATIO 1.4 (1.0-2.2); BILIRUBIN,TOTAL 0.6 mg/dL (0.2-1.0); CALCIUM 9.3 mg/dL (8.5-10.3); CREATININE 0.6 mg/dL (0.6-1.3); POTASSIUM 4.4 mmol/L (3.5-4.5); TOTAL PROTEIN 6.6 g/dL (6.4-8.9)
[2022-09-15] MEDS ORDERED: SODIUM CHLORIDE 0.9% 1,000 ML IV STA (10:40)
[2022-09-15 12:27] LABS: BILIRUBIN,URINE NEGATIVE (NEGATIVE); GLUCOSE, URINE (UA) 250 mg/dL (NEGATIVE); KETONES,URINE (UA) NEGATIVE (NEGATIVE); LEUKOCYTE ESTERASE, URINE NEGATIVE (NEGATIVE); NITRITE,URINE NEGATIVE (NEGATIVE); OCCULT BLOOD,URINE NEGATIVE (NEGATIVE); PH,URINE 7.5 PH (5.0-7.5); PROTEIN,URINE NEGATIVE (NEGATIVE); UROBILINOGEN,URINE 0.2 (NORMAL) E.U./dL (NORMAL)
[2022-09-15 12:36] LABS: CLARITY,URINE CLEAR (CLEAR)
[2022-09-15] MEDS ORDERED: oxyCODONE 5 MG TABLET PO PRN (12:55)
[2022-09-15] MEDS ORDERED: ACETAMINOPHEN 325 MG TABLET PO PRN (12:55)
[2022-09-15] MEDS ORDERED: SODIUM CHLORIDE FLUSH 0.9% 10 ML SYRINGE IVP PRN (12:55)
[2022-09-15] MEDS ORDERED: ONDANSETRON ODT 4 MG TABLET TL PRN (12:55)
[2022-09-15] MEDS ORDERED: ONDANSETRON 4 MG/2 ML VIAL IVP PRN (12:55)
--- NOTE | 2022-09-15 13:09 | HISTORY & PHYSICAL EXAMINATION ---
Chief Complaint - Chief Complaint Chief Complaint: Confusion and slurred speech History of Present Illness - Admitted From Admitted From:: Home - History Obtained From Records Reviewed: [facility] History obtained from: Dr. Rdz and her SO who lives off and on with her Exam Limitations: None - History of Present Illness HPI Comment/Other: Patient was brought in by family this morning because of expressive aphasia and increased confusion. Her history dates to December of last year where she had a stroke and she had a mild residual. She then presented in April 2022 with the family being alarmed that she was having another stroke because of expressive aphasia and confusions. However her symptoms resolved once her hyponatremia was treated. She then returned in May of this year with acute on chronic right-sided weakness and expressive aphasia. In the ER she was severely hypertensive at 239/110. She was inattentive, had trouble speaking, and was not following commands and had a blank stare. Code stroke was called and stroke telemetry neurology evaluated her CT of head and CT angiogram which had no changes from December 2021. She had a subacute infarct involving the left superior parietal lobe including the postcentral gyrus. The MRI had a small old left parietal occipital infarct. No acute or subacute infarct. She has some mild amyloid angiopathy. This was felt to be old. She was noted to have twitching movements and as such was started on Keppra. After being discharged, she was seen by her primary care provider Boom Acosta. Dr. Acosta then referred her to the [facility] for neurology evaluation. I Dr. Tg Rosenthal at [phone] saw the patient and performed an EEG. Per the patient's significant other, her EEG was negative and her Keppra was stopped.He has his own home. But in the last few months he has been basically living with her. He only goes back to his house to picker machine operator the mail and get new close. She really cannot be left alone due to cognitive deficits and easy confusion but has been doing well since the last admission. ROS neg for any changes. Today, she had an abrupt onset at 7:30 in the morning of confusion and slurred speech. She did not have any focal weakness. There is no numbness or paresthesias. No headache, vomiting, syncope. There is no antecedent illness of fever, chills. Appetite has been normal diet has been normal and bowel movem ents have been normal. At 7 in the morning, she was at baseline with an abrupt change at 7:30. Her significant other/partner was with her the entire time. He did not notice any twitching, loss of consciousness, incontinence, or staring. Temperature was 36.7. Heart rate 77. Respirations 18. Blood pressure 150/53. 97% O2 sat. Exam had her keenly responsive and alert. Able to answer question s. No focal deficits. No sensory loss. No dysarthria. EKG had sinus rhythm. And her lab work showed a normal white cell count. Normal hemoglobin. Sodium was 126, potassium 4.4. BUN 9, creatinine 0.6. Her inferior vena cava was interrogated by bedside ultrasound and was 0.61 cm and was interpreted as profound dehydration requiring 3 L supplementation. After discussion with the ER provider, there is no clear etiology of her dehydration. She is on some fluid restriction because of chronic hyponatremia but none to the extent that she should be so severely dehydrated. I will place the patient in observation status for hydration. To follow her neurological exam. I will also call her neurologist. I have called and left a message for the provider to please give me a call so I can discuss her case. History - Past Medical History Cardiovascular: reports: Hypertension, High cholesterol Respiratory: reports: Pneumonia Neuro: reports: CVA Endocrine/Autoimmune: reports: Type 2 diabetes GI: reports: GERD, Chronic diarrhea : reports: Other HEENT: reports: None Psych: reports: Anxiety, Panic attacks Musculoskeletal: reports: None Derm: reports: Rosacea MRSA Hx?: No - Past Surgical History HEENT: reports: Cataracts Meds/Allgy - Home Medications Home Medications: Ambulatory Orders Medication Instructions Recorded Confirmed Metformin HCl 1,000 mg PO BIDWM 03/12/16 09/15/22 Simvastatin 60 mg PO QPM 03/12/16 09/15/22 glipiZIDE [Glipizide] 15 mg PO DAILY 03/12/16 09/15/22 Clopidogrel [Plavix] 75 mg PO DAILY 04/22/22 09/15/22 Metoprolol Succinate [Toprol Xl] 50 mg PO DAILY #30 tablet 04/28/22 09/15/22 Sodium Chloride [Salt Tab] 1 gm PO DAILY 06/09/22 09/15/22 Losartan Potassium 1 tab PO DAILY 09/15/22 09/15/22 Sertraline [Zoloft] 1 tab PO DAILY 09/15/22 09/15/22 - Allergies Allergies/Adverse Reactions: Allergies Allergy/AdvReac Type Severity Reaction Status Date / Time NSAIDS (Non-Steroidal Allergy Respiratory Verified 06/09/22 11:38 Anti-Inflamma Review of Systems - Constitutional Constitutional: reports: Other (has been doing fine for a month). denies: Fatigue, Fever, Chills, Malaise, Weakness, Poor appetite - Eyes Eyes: reports: Vision loss (of aging). denies: Pain, Irritation, Amaurosis, Dipolpia - Ears, Nose & Throat Ears, Nose & Throat: reports: Hearing loss. denies: Ear pain, Hearing aids, Nasal pain, Nasal discharge, Sore throat, Hoarseness - Cardiovascular Cariovascular: denies: Irregular heart rate, Palpitations, Chest pain, Lightheadedness, Syncope - Respiratory Respiratory: denies: Cough, Wheezing, Snoring, Hemoptysis, Orthopnea, SOB at rest, SOB with exertion - Gastrointestinal Gastrointestinal: denies: Abdominal pain, Change in bowel habits, Nausea, Vomiting - Genitourinary Genitourinary: reports: Incontinence. denies: Dysuria, Frequency, Urgency - Musculoskeletal Musculoskeletal: reports: Stiffness (chronic and stable). denies: Muscle pain, Back pain, Limited range of motion, Muscle weakness, Joint pain - Integumentary Integumentary: denies: Rash - Neurological Neurological: reports: Memory problems, Pre-existing deficit, Seizures (started on Keppra with last admit and stopped by neurolgy after EEG negative). denies: General weakness, Focal weakness, Headache, Dizziness, Numbness, Abnormal gait - Psychiatric Psychiatric: denies: Depression, Anxiety, Suicidal, Delusions - Endocrine Endocrine: denies: Polyuria, Polydypsia, Polyphagia - Hematologic/Lymphatic Hematologic/Lymphatic: denies: Anemia, Bruising, Petechiae Prior Level of Functionality: She has a 14 step area in her home that she is able to navigate. Has 2 floors in her house. She is able to walk 10 feet and is independent at baseline with just standby prompting Exam - Vital Signs Reviewed Vital Signs: Yes Vital Signs: Vital Signs x48h Temp Pulse Resp BP Pulse Ox 09/15/22 12:08 72 14 180/96 H 100 09/15/22 10:40 78 18 152/90 H 98 09/15/22 10:29 75 18 171/74 H 98 09/15/22 09:19 36.7 C 77 18 150/53 H 97 - Physical Exam General Appearance: positive: No acute distress, Alert, Other ([place] elderly female, well groomed, well nourished. Partner at the bedside. Speech is normal but is having word finding difficulties, and difficulty maintaining concentration) Eyes Bilateral: positive: PERRL, EOMI ENT: positive: No signs of dehydration Neck: positive: No JVD. negative: Stiff neck Respiratory: positive: No respiratory distress. negative: Wheezes, Rales, Rhonchi Cardiovascular: positive: Regular rate & rhythm, Systolic murmur Peripheral Pulses: positive: 1+ Abdomen: positive: Non-tender, No organomegaly, Nml bowel sounds, No distention Skin: positive: Warm, Dry Extremities: positive: Full ROM, No pedal edema Neurologic/Psychiatric: positive: CN's nml (2-12), Motor nml, Disoriented to person, Disoriented to place, Disoriented to time. negative: Facial droop, Slurred/abnml speech Conclusion/Plan - Problem List (1) Altered mental status Conclusion/Plan: This is now her fourth episode. Episode #1 was in December 2021 which was confirmed to be a stroke on imaging studies. Episode #2 was in March and felt to be hyponatremia. Episode #3 was unclear in his etiology. Could have been hyponatremia? Could have been a new stroke? Or where she having seizures. As such she was placed on Keppra. She now has episode #4. She is off the Keppra. EEG is reportedly normal per her significant other. She is mildly hyponatremic but there is no evidence of stroke, LA, infection on today's evaluation. There are no new medications. Plan: Observation to monitor rhythm, and to see if there is any improvement Await return phone call from her neurologist to see if there is any other work- up I should be doing Qualifiers: Altered mental status type: disorientation Qualified Code(s): R41.0 - Disor ientation, unspecified (2) Hyponatremia Conclusion/Plan: In the past sodium of 119 was associated with confusion. This was in March of this year. Confusion resolved once her sodium came back up again. However, her episode of confusion in April was not associated with severe hyponatremia. While she is hyponatremic today I would think that that would not cause a "sudden" change in mental status. I will hydrate her with normal saline. The cause of her hyponatremia may be decreased water intake (as seen on her IVC interrogation) as well as being on a serotonin reuptake inhibitor. (3) Dehydration Conclusion/Plan: BUN and creatinine are normal for her. Oral mucosa is not dry. But ER provider says that her inferior vena cava is quite collapsed. This indicates, per his measurements, at least to 3 L fluid loss. I will be starting her on IV fluids for. (4) DM type 2 (diabetes mellitus, type 2) Conclusion/Plan: She is usually well controlled. Home medications are that of glipizide and metformin. Both are on the biers list. I will hold off on resuming oral medications until she is back to baseline. In the meantime I will start sliding scale insulin. Check A1c Qualifiers: Diabetes mellitus extermination supervisor insulin use: without extermination supervisor use Diabetes mellitus complication status: without complication Qualified Code(s): E11.9 - Type 2 diabetes mellitus without complications (5) Hx of completed stroke Conclusion/Plan: On Plavix, on simvastatin. I will not be changing those medications. I will also make sure that her blood pressure remained stable. - Lab Results Lab results reviewed: Yes Brandon Bones: 09/15/22 09:58 09/16/22 08:13 - Diagnostic Imaging Results Diagnostic Imaging Results: positive: Final report reviewed Core Measures - Anticipated LOS I expect patient to be DC'd or transferred within 96 hours.: Yes - DVT/VTE - Prophylaxis VTE/DVT Device ordered at admit?: Yes
--- NOTE | 2022-09-15 13:33 | PHARMACY PROGRESS NOTE ---
- Best Possible Medication History Admit Date and Time: 09/15/22 0357 Processed by: Pharmacy Medication History completed: Yes Patient Interview: Completed Secondary Source(s): Pharmacy records As the person ultimately responsible for medication therapy, providers are able to order a medication from an existing home medication list in [facility] via the "Reconcile Routine" prior to Confirmation of that medication by lab support technician. Such practice is discouraged except when the physician, in their clinical judgment, deems that a medical need exists for a medication without regard to previous use.
[2022-09-15] MEDS: SODIUM CHLORIDE 0.9% 1,000 ML IV SCH ×2 (13:54→23:48)
[2022-09-15] MEDS ORDERED: ZINC OXIDE 20% OINT 30 GM TUBE TOP PRN (14:54)
[2022-09-15] MEDS: SODIUM CHLORIDE FLUSH 0.9% 10 ML SYRINGE IVP SCH ×2 (17:10→23:50)
[2022-09-15] MEDS: NYSTATIN CREAM 15 GM TUBE TOP SCH (21:33)
[2022-09-15] MEDS: NYSTATIN POWDER 15 GM TOP SCH (23:48)
[2022-09-16 08:32] LABS: CALCIUM 8.4 mg/dL (8.5-10.3); CREATININE 0.5 mg/dL (0.6-1.3)
[2022-09-16] MEDS: NYSTATIN CREAM 15 GM TUBE TOP SCH ×2 (09:13→20:33)
[2022-09-16] MEDS: NYSTATIN POWDER 15 GM TOP SCH ×2 (09:13→20:33)
[2022-09-16] MEDS: ENOXAPARIN 40 MG/0.4 ML SYRINGE SUBQ SCH (09:13)
[2022-09-16] MEDS: SODIUM CHLORIDE FLUSH 0.9% 10 ML SYRINGE IVP SCH ×2 (09:14→15:53)
[2022-09-16] MEDS: SODIUM CHLORIDE 0.9% 1,000 ML IV SCH ×2 (12:46→21:40)
--- NOTE | 2022-09-16 13:40 | PROVIDER PROGRESS NOTE ---
Objective - Vital Signs/Intake & Output Vital Signs: Vital Signs x48h Temp Pulse Resp BP Pulse Ox 09/16/22 13:00 37.2 C 79 16 144/62 H 97 09/16/22 07:25 37.2 C 82 16 151/63 H 97 Intake & Output: Intake & Output 09/13/22 09/14/22 09/15/22 09/16/22 23:59 23:59 23:59 23:59 Intake Total 2190 1400 Output Total 525 Balance 2190 875 - Lab Results Fish Bones: 09/15/22 09:58 09/16/22 08:13 Other Labs: Lab Results x24hrs 09/16/22 Range/Units 08:13 Sodium 125 L (135-145) mmol/L Potassium 4.0 (3.5-4.5) mmol/L Chloride 95 L (101-111) mmol/L Carbon Dioxide 26 (21-32) mmol/L Anion Gap 4.0 L (6-13) BUN 6 (6-20) mg/dL Creatinine 0.5 L (0.6-1.3) mg/dL Estimated GFR (MDRD) 118 (>89) Glucose 238 H (74-104) mg/dL Calcium 8.4 L (8.5-10.3) mg/dL Assessment/Plan - Problem List (1) Altered mental status Impression: (1) Altered mental status Conclusion/Plan: This is now her fourth episode. Episode #1 was in December 2021 which was confirmed to be a stroke on imaging studies. Episode #2 was in March and felt to be hyponatremia. Episode #3 was unclear in his etiology. Could have been hyponatremia? Could have been a new stroke? Or where she having seizures. As such she was placed on Keppra. She now has episode #4. She is off the Keppra. EEG is reportedly normal per her significant other. She is mildly hyponatremic but there is no evidence of stroke, HI, infection on today's evaluation. There are no new medications. I did call her neurology office yesterday and left a message for them to call me back. There is no response. So I recall them today. This time I was able to speak to office staff in person. They would leave a message for Dr. Rosenthal to give me a call before 5 PM today. She is improved in symptom structure and fluidity of speech today. She knows that she is in the hospital. She just cannot tell me where the hospital is. No focal deficits. No facial droop. No slurred speech. Plan: Observation Status to remain. She is a [facility]. Continue telemetry to monitor rhythm. Await return phone call from her neurologist to see if there is any other work- up I should be doing Qualifiers: Altered mental status type: disorientation Qualified Code(s): R41.0 - Disorientation, unspecified (2) Hyponatremia Conclusion/Plan: In the past sodium of 119 was associated with confusion. This was in March of this year. Confusion resolved once her sodium came back up again. However, her episode of confusion in April was not associated with severe hyponatremia. While she is hyponatremic today I would think that that would not cause a "sudden" change in mental status. I have hydrated her with normal saline. The cause of her hyponatremia may be decreased water intake (as seen on her IVC interrogation) as well as being on a serotonin reuptake inhibitor.Sodium was 126 on admission, and after normal saline she is 125 today.I started her on normal saline. Total amount given to her as of midnight last night was 1990 cc. This morning she has received at 1000 cc since midnight. So we are looking at close to 3 L of IV fluid supplementation and no response with her sodium. Plan: Continue normal saline hydration. Check urine sodium and osmolality (3) Dehydration Conclusion/Plan: BUN and creatinine are normal for her. Oral mucosa was not dry on admission. But ER provider says that her inferior vena cava is quite collapsed. This indicates, per his measurements, at least to 3 L fluid loss. I will continue IV fluids. She is only eating 50% of her food. But I will most likely stop after 4 L since I do not want to fluid overload her. (4) DM type 2 (diabetes mellitus, type 2) Conclusion/Plan: She is usually well controlled. Home medications are that of glipizide and metformin. Both are on the [facility]ers list. I will hold off on resuming oral medications until she is back to baseline. She is on sliding scale insulin. A1c is pending. Qualifiers: Diabetes mellitus assisted insulin use: without assisted use Diabetes mellitus complication status: without complication Qualified Code(s): E11.9 - Type 2 diabetes mellitus without complications (5) Hx of completed stroke Conclusion/Plan: On Plavix, on simvastatin. I will not be changing those medications. I will also make sure that her blood pressure remained stable.
[2022-09-16] MEDS: levETIRAcetam 250 MG TABLET PO SCH (20:24)
[2022-09-16] MEDS ORDERED: ATORVASTATIN 10 MG TABLET PO SCH (21:00)
[2022-09-17] MEDS: SODIUM CHLORIDE FLUSH 0.9% 10 ML SYRINGE IVP SCH ×2 (01:07→08:55)
[2022-09-17] MEDS: SODIUM CHLORIDE 0.9% 1,000 ML IV SCH (07:14)
[2022-09-17 08:40] LABS: CALCIUM 8.2 mg/dL (8.5-10.3); CREATININE 0.5 mg/dL (0.6-1.3); POTASSIUM 3.8 mmol/L (3.5-4.5)
--- NOTE | 2022-09-17 08:50 | Discharge Plan ---
Discharge Plan Problem Reviewed?: Yes Disposition: Home, Self Care Condition: Stable Prescriptions: levETIRAcetam [Keppra] 250 mg PO BID #60 tab Nystatin Cream [Mycostatin Cream] 1 applic TOP BID #2 each Diet: Diabetic Activity Restrictions: Activity as Tolerated Shower Restrictions: No Driving Restrictions: Yes (she cannot drive) Assistance Devices: [facility] Concerns: You were brought in because of sudden onset of confusion, slurred speech. This is in context of a stroke in December 2021. An admission in April for low sodium with confusion. An admission in May for possible seizure. You were placed on a seizure drug in May, and were referred to a neurologist. Dr. Tg Rosenthal saw you from the [facility] and an EEG was abnormal indicating damage from previous stroke. But no seizure waves. So she felt it was safe to stop your seizure medication which she were not liking anyway. You now had a sudden onset of confusion and slurred speech again. Sudden loss of memory. You are not having another stroke. You have no side effects of drugs. Your sugar was normal. You have no signs or symptoms of infection. Plan of Treatment: In speaking to your neurologist and describing this most recent episode, the only thing we can think of is that you are still having small seizures. We have resumed your seizure drug at half the dose it was before. As such she will be on Keppra 250 mg twice a day. Please see your primary care provider in follow-up. We would asked them to reevaluate your diabetic medication. It 81 years of age, both metformin and glipizide may be a problem. But we will leave it to their discretion about what to use for you. Care Goals: You are gradually declining with regards to memory. You really cannot be left alone very much anymore. Your significant other and your family are discussing assisted living facilities to keep you safe. Assessment: [place] but cognitively impaired elderly female. Oriented to self, that she is in the hospital, but not quite clear about why she is hereCase discussed with her significant other who has been taking care of for the last few weeks No Smoking: If you smoke, Please STOP! Call for help.
[2022-09-17] MEDS: ENOXAPARIN 40 MG/0.4 ML SYRINGE SUBQ SCH (08:53)
[2022-09-17] MEDS: levETIRAcetam 250 MG TABLET PO SCH (08:53)
[2022-09-17] MEDS: NYSTATIN CREAM 15 GM TUBE TOP SCH (08:54)
[2022-09-17] MEDS: NYSTATIN POWDER 15 GM TOP SCH (08:54)
[2022-09-17] MEDS ORDERED: METOPROLOL SUCCINATE 50 MG TABLET PO SCH (09:00)
[2022-09-17] MEDS ORDERED: LOSARTAN 50 MG TABLET PO SCH (09:00)
[2022-09-17] MEDS ORDERED: SERTRALINE 25 MG TABLET PO SCH (09:00)
[2022-09-17] MEDS ORDERED: CLOPIDOGREL 75 MG TABLET PO SCH (09:00)
[2022-09-17] MEDS ORDERED: SODIUM CHLORIDE 1 GM TABLET PO SCH (09:00)
[2022-09-17 10:19] VITALS: BP 142/60
[2022-09-17] MEDS ORDERED: INSULIN LISPRO 300 UNIT/3 ML PEN SUBQ SCH (12:00)
--- NOTE | 2022-09-17 12:02 | DISCHARGE SUMMARY ---
Discharge Summary Admit Date: 09/15/22 Discharge Date: 09/17/22 Discharging Provider: Nedra Quijano MD Primary Care Provider: Masha Marc Code Status: Attempt Resuscitation Condition at Discharge: Stable Discharge Disposition: Home Health Service - DIAGNOSES Discharge Diagnoses with Status of Each Condition: 1. Acute altered mental status 2. Hyponatremia 3. Dehydration 4. Type 2 diabetes mellitus, controlled, without long-term complications, not on long-term insulin 5. History of completed stroke 6. Cognitive deficits - HPI History of Present Illness: Patient was brought in by family this morning because of expressive aphasia and increased confusion. Her history dates to December of last year where she had a stroke and she had a mild residual. She then presented in April 2022 with the family being alarmed that she was having another stroke because of expressive aphasia and confusions. However her symptoms resolved once her hyponatremia was treated. She then returned in May of this year with acute on chronic right-sided weakness and expressive aphasia. In the ER she was severely hypertensive at 239/110. She was inattentive, had trouble speaking, and was not following commands and had a blank stare. Code stroke was called and stroke telemetry neurology evaluated her CT of head and CT angiogram which had no changes from December 2021. She had a subacute infarct involving the left superior parietal lobe including the postcentral gyrus. The MRI had a small old left parietal occipital infarct. No acute or subacute infarct. She has some mild amyloid angiopathy. This was felt to be old. She was noted to have twitching movements and as such was started on Keppra. After being discharged, she was seen by her primary care provider Boom Acosta. Dr. Acosta then referred her to the [facility] for neurology evaluation. Martha Rosenthal at [phone] saw the patient and performed an EEG. Per the patient's significant other, her EEG was negative and her Keppra was stopped.He has his own home. But in the last few months he has been basically living with her. He only goes back to his house to pick and shovel worker the mail and get new close. She really cannot be left alone due to cognitive deficits and easy confusion but has been doing well since the last admission. ROS neg for any changes. Today, she had an abrupt onset at 7:30 in the morning of confusion and slurred speech. She did not have any focal weakness. There is no numbness or paresthesias. No headache, vomiting, syncope. There is no antecedent illness of fever, chills. Appetite has been normal diet has been normal and bowel movements have been normal. At 7 in the morning, she was at baseline with an abrupt change at 7:30. Her significant other/partner was with her the entire time. He did not notice any twitching, loss of consciousness, incontinence, or staring. Temperature was 36.7. Heart rate 77. Respirations 18. Blood pressure 150/53. 97% O2 sat. Exam had her keenly responsive and alert. Able to answer questions. No focal deficits. No sensory loss. No dysarthria. EKG had sinus rhythm. And her lab work showed a normal white cell count. Normal hemoglobin. Sodium was 126, potassium 4.4. BUN 9, creatinine 0.6. Her inferior vena cava was interrogated by bedside ultrasound and was 0.61 cm and was interpreted as profound dehydration requiring 3 L supplementation. After discussion with the ER provider, there is no clear etiology of her dehydration. She is on some fluid restriction because of chronic hyponatremia but none to the extent that she should be so severely dehydrated. I will place the patient in observation status for hydration. To follow her neurological exam. I will also call her neurologist. I have called and left a message for the provider to please give me a call so I can discuss her case. - Past Medical History Cardiovascular: reports: Hypertension, High cholesterol Respiratory: reports: Pneumonia Neuro: reports: CVA Endocrine/Autoimmune: reports: Type 2 diabetes GI: reports: GERD, Chronic diarrhea : reports: Other HEENT: reports: None Psych: reports: Anxiety, Panic attacks Musculoskeletal: reports: None Derm: reports: Rosacea MRSA Hx?: No - Past Surgical History HEENT: reports: Cataracts - CONSULTS | PROCEDURES Procedures: Head CT has stable CAT scan with changes of chronic left parieto-occipital infarct and associated encephalomalacia. There is no evidence of acute intracranial abnormality or acute intracranial hemorrhage. There is no evidence of an acute infarction. Consider further evaluation with MRI if clinically needed. - HOSPITAL COURSE Hospital Course: (1) Altered mental status Conclusion/Plan: This is now her fourth episode. Episode #1 was in December 2021 which was confirmed to be a stroke on imaging studies. Episode #2 was in March and felt to be hyponatremia. Episode #3 was unclear in his etiology. Could have been hyponatremia? Could have been a new stroke? Or where she having seizures. As such she was placed on Keppra. She now has episode #4. She is off the Keppra. EEG is reportedly normal per her significant other. She is mildly hyp onatremic but there is no evidence of stroke, MO, infection on today's evaluation. There are no new medications. She improved in symptom, sentence structure and fluidity of speech. However, her leaflet or newspaper deliverer/significant other stated that she still had more memory loss than her usual baseline. She knows that she is in the hospital. She just cannot tell me where the hospital is. No focal deficits. No facial droop. No slurred speech. I was able to speak to her neurologist. The neurologist wanted to make sure that a repeat imaging was done to make sure there is no stroke. The patient herself is the one that wanted to stop the Keppra because she did not like it. It made her "sick". The EEG did slow some brainwave changes in the left occipital and left frontal but this was felt to be due to her previous stroke and not due to true seizure disorder. Nevertheless, in the face of evidence indicating there is another source, the neurologist feels that we should resume the keppra 250 mg twice daily. If the patient cannot tolerate that go to 125 mg p.o. twice daily. She will make arrangements to see this patient in follow-up. With the improvement in physical exam, and a normal vital signs, She was discharged to home with home health. Her partner acknowledges that her care is becoming overwhelming. He will be sitting down with her family. They are making plans and are considering transitioning her to an assisted living facility.I initially made her DO NOT RESUSCITATE. But he said that he is not comfortable with that decision with that discussion at [facility]. As such she is discharged with a full CODE STATUS. I would strongly recommend rediscussing this with her primary care provider. She is to be discharged with home health PT, OT, and a bath aide. PT and OT did evaluate her and treat her while she was here. Initially they felt that her cognitive deficits would result in needing to be placed in a jail facility but she improved rapidly to near baseline. (2) Hyponatremia Conclusion/Plan: In the past sodium of 119 was associated with confusion. This was in March of this year. Confusion resolved once her sodium came back up again. However, her episode of confusion in April was not associated with severe hyponatremia. While she is hyponatremic today I would think that that would not cause a "freya den" change in mental status. I have hydrated her with normal saline. The cause of her hyponatremia may be decreased water intake (as seen on her IVC interrogation) as well as being on a serotonin reuptake inhibitor.Sodium was 126 on admission, and after normal saline she remained at 125 today at [facility]. She received close to 4 L of IV fluids in the form of normal saline. With this sodium level, her sensorium had cleared to baseline other than progressive forgetfulness according to her partner. As such, I don't think this sodium is the cause of her problems. Neurologist concurred. (3) Dehydration Conclusion/Plan: BUN and creatinine are normal for her. Oral mucosa was not dry on admission. But ER provider says that her inferior vena cava is quite collapsed. This indicates, per his measurements, at least to 3 L fluid loss. She was given close to 4 L of IV fluids. No evidence of fluid overload. She initially was eating very little at 50% of her food. But by the evening of September 16 she had her percent of dinner, and at discharge 100% of breakfast. (4) DM type 2 (diabetes mellitus, type 2) Conclusion/Plan: She is usually well controlled. Home medications are that of glipizide and metformin. Both are on the [facility] list. She did not receive those while she was in the hospital. She was on sliding scale insulin with good control. She is discharged to go back home on her normal medications. But both of these medications need to be used very carefully in an 81-year-old. Especially in a patient who has cognitive deficits. (5) Hx of completed stroke Conclusion/Plan: On Plavix, on simvastatin. I will not be changing those medications. At discharge this mele patient is alert to person, that she is in the hospital. Cannot tell me the date, or the name of the hospital or the name of the town. But she is ambulating in her room without assistance, and able to get up to go to the bathroom with only standby assist. The standby assist is for an abundance of caution so she does not fall. But she is not ataxic or short of breath. Temperature is 36.9, heart rate 77, blood pressure 142/60. Respirations 20. 95% on room air. She is 5 foot 2 and half inches tall, 145 kg is recorded. But that would make her 319 pounds. I think she is more 145 pounds not 145 kg. Neck is supple. Lungs are clear. Regular rate and rhythm with a systolic ejection murmur. The abdomen is soft, nontender, and her bowel last bowel movement was today. She is incontinent of urine and wears a brief and pad. Extremities have no edema present. While she is forgetful, anxious, easily confused, she does follow commands. Able to get out of bed and go to the bathroom with a standby assist. No focal deficits. No ataxia. Flight of ideas constantly present. Greater than 30 minutes spent coordinating discharge.This document was made in part using voice recognition software. While efforts are made to proofread this document, sound alike and grammatical errors may occur. - ALLERGIES Allergies/Adverse Reactions: Allergies Allergy/AdvReac Type Severity Reaction Status Date / Time NSAIDS (Non-Steroidal Allergy Respiratory Verified 06/09/22 11:38 Anti-Inflamma - MEDICATIONS Home Medications: Ambulatory Orders Medication Instructions Recorded Confirmed Metformin HCl 1,000 mg PO BIDWM 03/12/16 09/15/22 Simvastatin 60 mg PO QPM 03/12/16 09/15/22 glipiZIDE [Glipizide] 15 mg PO DAILY 03/12/16 09/15/22 Clopidogrel [Plavix] 75 mg PO DAILY 04/22/22 09/15/22 Metoprolol Succinate [Toprol Xl] 50 mg PO DAILY #30 tablet 04/28/22 09/15/22 Sodium Chloride [Salt Tab] 1 gm PO DAILY 06/09/22 09/15/22 Losartan Potassium 1 tab PO DAILY 09/15/22 09/15/22 Sertraline [Zoloft] 1 tab PO DAILY 09/15/22 09/15/22 Nystatin Cream [Mycostatin Cream] 1 applic TOP BID #2 each 09/17/22 levETIRAcetam [Keppra] 250 mg PO BID #60 tab 09/17/22 - LABS Result Diagrams: 09/15/22 09:58 09/17/22 08:21
== END 2022-09-17 10:15 | disposition home health service (06) ==
LOC: ED 09:00 → MS2 12:55
PROVIDERS: ADMIT Specialist; ATTEND Specialist
DX: R41.0 Disorientation, unspecified (principal); E86.0 Dehydration; E87.1 Hypo-osmolality and hyponatremia; E11.9 Type 2 diabetes mellitus without complications; Z79.84 Long term (current) use of oral hypoglycemic drugs; I69.319 Unspecified symptoms and signs involving cognitive functions following cerebral infarction; R25.3 Fasciculation; I10 Essential (primary) hypertension; K21.9 Gastro-esophageal reflux disease without esophagitis; R47.01 Aphasia; F41.9 Anxiety disorder, unspecified; R56.9 Unspecified convulsions
CPT/HCPCS: 36415; 70450; 80048; 80053; 81003; 83690; 85025; 93005; 96360; 96361; 96372; 97162; 97166; 97530; 97535; 99284; 99285; A9270; G0378; J1650; 81001; 87086

== ENCOUNTER 2022-10-10 12:08 | Emergency (ER) | payer MEDICARE ==
[2022-10-10] MEDS ORDERED: SODIUM CHLORIDE 0.9% 1,000 ML IV STA (12:34)
--- NOTE | 2022-10-10 12:36 | ED Physician Documentation ---
History of Present Illness - Stated complaint Stated Complaint: DEHYDRATION - Chief complaint Chief Complaint: General - History obtained from History obtained from: Patient, Family - Additonal information Additional information: 81-year-old woman with history of stroke, hyponatremia, seizure probably related to hyponatremia with subsequent reportedly negative EEG and now off of Keppra, type 2 diabetes on metformin and short-term memory difficulty. She presents by private vehicle accompanied by her significant other and her caregiver. At her baseline she has significant short-term memory difficulties and has difficulty walking since her stroke due to deconditioning. Starting at 1130 this morning she developed acute altered mental status and encephalopathy similar to prior episode of 4 weeks ago where she was dehydrated. Per the significant other she is walking at her baseline and was not complaining of anything prior to that but has had poor oral intake especially with regard to fluids. Discharge summary from September 17 of this year reviewed. She had stable hyponatremia in the mid 120s, improved after rehydration, and was returned home back in her baseline condition after couple of days in the hospital. PD PAST MEDICAL HISTORY - Past Medical History Cardiovascular: Hypertension, High cholesterol Respiratory: Pneumonia Neuro: CVA Endocrine/Autoimmune: Type 2 diabetes GI: GERD, Chronic diarrhea : Other HEENT: None Psych: Anxiety, Panic attacks Musculoskeletal: None Derm: Rosacea - Past Surgical History HEENT: Cataracts - Present Medications Home Medications: Ambulatory Orders Medication Instructions Recorded Confirmed Metformin HCl 1,000 mg PO BIDWM 03/12/16 09/15/22 Simvastatin 60 mg PO QPM 03/12/16 09/15/22 glipiZIDE [Glipizide] 15 mg PO DAILY 03/12/16 09/15/22 Clopidogrel [Plavix] 75 mg PO DAILY 04/22/22 09/15/22 Metoprolol Succinate [Toprol Xl] 50 mg PO DAILY #30 tablet 04/28/22 09/15/22 Sodium Chloride [Salt Tab] 1 gm PO DAILY 06/09/22 09/15/22 Losartan Potassium 1 tab PO DAILY 09/15/22 09/15/22 Sertraline [Zoloft] 1 tab PO DAILY 09/15/22 09/15/22 Nystatin Cream [Mycostatin Cream] 1 applic TOP BID #2 each 09/17/22 levETIRAcetam [Keppra] 250 mg PO BID #60 tab 09/17/22 - Allergies Allergies/Adverse Reactions: Allergies Allergy/AdvReac Type Severity Reaction Status Date / Time NSAIDS (Non-Steroidal Allergy Respiratory Verified 10/10/22 12:12 Anti-Inflamma - Social History Does the pt smoke?: No Smoking Status: Never smoker PD ED PE NORMAL - Vitals Vital signs reviewed: Yes - General General: Other (She is alert, she can say her name and follow simple commands. She knows she is in the hospital but not where. Cannot state where she lives.) - HEENT HEENT: PERRL, EOMI - Neck Neck: Supple, no meningeal sign, No bony TTP - Cardiac Cardiac: RRR, No murmur - Respiratory Respiratory: No respiratory distress, Clear bilaterally - Abdomen Abdomen: Soft, Non tender - Neuro Neuro: superintendent recreation 2-12 intact, No motor deficit, No sensory deficit, Normal speech Eye Opening: Spontaneous Motor: Obeys Commands Verbal: Confused GCS Score: 14 Results - Vitals Vitals: Vital Signs - 24 hr 10/10/22 10/10/22 12:12 14:10 Temperature 36.6 C Heart Rate 68 65 Respiratory 16 15 Rate Blood Pressure 140/80 H 142/87 H O2 Saturation 97 95 Oxygen O2 Source [] Room air O2 Source Room air - Labs Labs: Laboratory Tests 10/10/22 10/10/22 12:47 12:47 WBC 6.0 RBC 3.59 L Hgb 12.0 Hct 35.2 L MCV 98.1 MCH 33.4 H MCHC 34.1 RDW 12.5 Plt Count 218 MPV 9.6 Neut # (Auto) 4.0 Lymph # (Auto) 1.0 L [place] # (Auto) 0.8 Eos # (Auto) 0.2 Baso # (Auto) 0.1 Absolute Nucleated RBC 0.00 Nucleated RBC % 0.0 Sodium 124 L Potassium 4.4 Chloride 90 L Carbon Dioxide 27 Anion Gap 7.0 BUN 9 Creatinine 0.6 Estimated GFR (MDRD) 96 Glucose 266 H Calcium 9.3 Magnesium 1.4 L Total Bilirubin 0.5 AST 12 ALT 9 L Alkaline Phosphatase 67 Total Protein 6.4 Albumin 3.6 Globulin 2.8 Albumin/Globulin Ratio 1.3 Ethyl Alcohol < 10.0 - Rads (name of study) CT of the head is showing stable old stroke, no acute findings. Relevant Findings:: Final report received, EMP independent interpretation of test PD Medical Decision Making - ED course Complexity details: reviewed results (CBC unremarkable, chemistry panel with stable hyponatremia at 124. Otherwise unremarkable. Blood alcohol negative.) ED course: 81-year-old woman with recurrent encephalopathy thought due to dehydration. After the administration 1 L IV fluid she was back to the baseline per her significant other and he was requesting discharge. Departure - Departure Disposition: 01 Home, Self Care Clinical Impression: Delirium Condition: Good Record reviewed to determine appropriate education?: Yes Comments: Drink plenty fluids and salty snacks might be helpful to increase the urge to drink. Follow-up with Dr. Acosta, consider requesting a occasional as needed order to go to the [facility] clinic for IV hydration if this becomes of persistent and recurrent problems which it looks like it is. Return if worse. Forms: PCP List
[2022-10-10 12:54] LABS: BASOPHILS # (AUTO) 0.1 10^3/uL (0.0-0.1); BASOPHILS % (AUTO) 0.8 %; EOSINOPHILS # (AUTO) 0.2 10^3/uL (0.0-0.7); EOSINOPHILS % (AUTO) 2.8 %; HCT - HEMATOCRIT 35.2 % (37.0-47.0); LYMPHOCYTES % (AUTO) 16.3 %; MEAN CORPUSCULAR HEMOGLOBIN 33.4 pg (27.0-31.0); MEAN CORPUSCULAR HGB CONC 34.1 g/dL (32.0-36.0); MEAN CORPUSCULAR VOLUME 98.1 fL (81.0-99.0); MEAN PLATELET VOLUME 9.6 fL (7.9-10.8); MONOCYTES # (AUTO) 0.8 10^3/uL (0.0-1.0); MONOCYTES % (AUTO) 12.8 %; PLT - PLATELET COUNT 218 10^3/uL (130-450); RED BLOOD COUNT 3.59 10^6/uL (4.20-5.40); RED CELL DISTRIBUTION WIDTH 12.5 % (12.0-15.0)
[2022-10-10 13:09] LABS: ALBUMIN 3.6 g/dL (3.2-5.5); ALBUMIN/GLOBULIN RATIO 1.3 (1.0-2.2); ALKALINE PHOSPHATASE 67 IU/L (42-121); ALT ALANINE AMINOTRANSFERASE 9 IU/L (10-60); AST ASPARTATE AMINOTRANSFERASE 12 IU/L (10-42); BILIRUBIN,TOTAL 0.5 mg/dL (0.2-1.0); BUN - BLOOD UREA NITROGEN 9 mg/dL (6-20); CALCIUM 9.3 mg/dL (8.5-10.3); CARBON DIOXIDE - CO2 27 mmol/L (21-32); CHLORIDE 90 mmol/L (101-111); CREATININE 0.6 mg/dL (0.6-1.3); ETOH - ETHANOL < 10.0 mg/dL; GFR - MDRD 96 (>89); GLUCOSE 266 mg/dL (74-104); MAGNESIUM 1.4 mg/dL (1.7-2.3); POTASSIUM 4.4 mmol/L (3.5-4.5); SODIUM 124 mmol/L (135-145); TOTAL PROTEIN 6.4 g/dL (6.4-8.9)
[2022-10-10 14:10] VITALS: BP 142/87; O2SAT 95
[2022-10-10] MEDS ORDERED: MAGNESIUM SULFATE 2 GRAM 2 GM/50 ML BAG IV ONE (14:31)
--- NOTE | 2022-10-10 14:51 | CT Report ---
PROCEDURE: HEAD WO INDICATIONS: ams TECHNIQUE: Noncontrast 4.5 mm thick angled axial sections acquired from the foramen magnum to the vertex. For r adiation dose reduction, the following was used: automated exposure control, adjustment of mA and/or kV according to patient size. COMPARISON: CT head 09/15/2022. FINDINGS: Image quality: Excellent. CSF spaces: Basal cisterns are patent. No extra-axial fluid collections. Ventricles are normal in size and shape. Brain: No midline shift. Stable encephalomalacia within the left parietal-occipital lobe. Areas of hypoattenuation within the deep and periventricular white matter, nonspecific and likely representing chronic microvascular ischemic change. Age-related global volume loss. No intracranial masses or hem orrhage. Lopez-white matter interface is normal. Skull and face: Calvarium and visualized facial bones are intact, without suspicious lesions. Bilat eral lens replacements. The orbits are otherwise normal in appearance. Sinuses: Visualized sinuses and mastoids are clear. IMPRESSION: No acute intracranial abnormalities. Stable chronic findings as above. Reviewed by: Rigo Couch MD on 10/10/2022 2:49 PM PDT Approved by: Rigo Couch MD on 10/10/2022 2:49 PM PDT Station ID: [id number]
== END 2022-10-10 15:42 | disposition home or self-care (01) ==
LOC: ED 12:08
DX: R41.0 Disorientation, unspecified (principal); G93.40 Encephalopathy, unspecified; E11.9 Type 2 diabetes mellitus without complications; Z79.84 Long term (current) use of oral hypoglycemic drugs; E87.1 Hypo-osmolality and hyponatremia; I10 Essential (primary) hypertension
CPT/HCPCS: 36415; 70450; 80053; 83735; 85025; 96365; 99283; 99284; G0480; 80320

== ENCOUNTER 2022-10-27 23:00 | Outpatient (CLI) | payer MEDICARE | END 2022-10-27 23:01 | disposition critical access hospital (66) | LOC: EMS 23:00 | DX: R50.9 Fever, unspecified (principal); R35.0 Frequency of micturition; R30.9 Painful micturition, unspecified; R32 Unspecified urinary incontinence; R26.81 Unsteadiness on feet; R25.1 Tremor, unspecified | CPT/HCPCS: A0425; A0429 ==

== ENCOUNTER 2022-10-27 23:17 | Emergency (ER) | payer MEDICARE ==
--- NOTE | 2022-10-28 00:01 | ED Physician Documentation ---
History of Present Illness - Stated complaint Stated Complaint: FEVER/WEAKNESS - Chief complaint Chief Complaint: Fever - Additonal information Additional information: BIBA. HPI is predominantly from (in ED at patient's bedside), with contributions from EMS as well as the patient (due to diagnosis of dementia, uncertain accuracy regarding the information patient provides although she seems to be mentating well at this point, answers orientation questions correctly x 3 (including name of the hospital/ED, takes a little time to answer year but accurate answer)). Patient's says that patient was with caregiver for much of the day. came home this afternoon and noted that the patient was exhibiting generalized weakness, manifest as needing help to get out of a chair and get to the bathroom and help getting from BR to bed ( says she wanted to get into bed after using the bathroom). says that she subsequently again needed to use the bathroom, and again needed assistance due to generalized weak ness. He says that upon returning back to the bed, she was so weak that she could not even stay seated up on her own. He also notes she is more confused than her baseline since earlier this evening. He called 911 due to the signs and symptoms; his chief concern is UTI, as she has had similar signs/symptoms associated with UTI in the past. Obtaining HPI from patient, she says she feels well, denies having any pain. Denies urinary frequency, denies dysuria. She does not recall having weakness or confusion earlier this evening. EMS measured temperature of 101.8 (patient is afebrile in ED on triage). EMS measured FSBS 234. Review of Systems Constitutional: reports: Fever Cardiac: denies: Chest pain / pressure Respiratory: denies: Dyspnea, Cough GI: denies: Abdominal Pain, Nausea, Vomiting, Diarrhea : denies: Dysuria, Frequency PD PAST MEDICAL HISTORY - Past Medical History Cardiovascular: Hypertension, High cholesterol Respiratory: Pneumonia Neuro: CVA Endocrine/Autoimmune: Type 2 diabetes GI: GERD, Chronic diarrhea : Other HEENT: None Psych: Anxiety, Panic attacks Musculoskeletal: None Derm: Rosacea - Past Surgical History HEENT: Cataracts - Present Medications Home Medications: Ambulatory Orders Medication Instructions Recorded Confirmed Metformin HCl 1,000 mg PO BIDWM 03/12/16 09/15/22 Simvastatin 60 mg PO QPM 03/12/16 09/15/22 glipiZIDE [Glipizide] 15 mg PO DAILY 03/12/16 09/15/22 Clopidogrel [Plavix] 75 mg PO DAILY 04/22/22 09/15/22 Metoprolol Succinate [Toprol Xl] 50 mg PO DAILY #30 tablet 04/28/22 09/15/22 Sodium Chloride [Salt Tab] 1 gm PO DAILY 06/09/22 09/15/22 Losartan Potassium 1 tab PO DAILY 09/15/22 09/15/22 Sertraline [Zoloft] 1 tab PO DAILY 09/15/22 09/15/22 Nystatin Cream [Mycostatin Cream] 1 applic TOP BID #2 each 09/17/22 levETIRAcetam [Keppra] 250 mg PO BID #60 tab 09/17/22 - Allergies Allergies/Adverse Reactions: Allergies Allergy/AdvReac Type Severity Reaction Status Date / Time NSAIDS (Non-Steroidal Allergy Respiratory Verified 10/10/22 12:12 Anti-Inflamma - Social History Does the pt smoke?: No Smoking Status: Never smoker PD ED PE NORMAL - Vitals Vital signs reviewed: Yes - General General: Alert and oriented X 3, No acute distress, Well developed/nourished - HEENT HEENT: Moist mucous membranes - Cardiac Cardiac: RRR - Respiratory Respiratory: No respiratory distress, Clear bilaterally - Abdomen Abdomen: Normal bowel sounds, Soft, Non tender, Non distended - Back Back: No CVA TTP - Derm Derm: Normal color, Warm and dry PD ED PE EXPANDED - Cardiac Cardiac: Murmur Present (2/6 ESTEPHANIE along left sternal border) Results - Vitals Vitals: Vital Signs - 24 hr 10/28/22 04:00 Heart Rate 70 Respiratory 16 Rate Blood Pressure 122/51 L O2 Saturation 98 Oxygen O2 Source [] Room air O2 Source Room air - Labs Labs: Laboratory Tests 10/27/22 10/28/22 10/28/22 23:31 00:17 00:17 WBC 17.6 H RBC 3.75 L Hgb 12.4 Hct 36.6 L MCV 97.6 MCH 33.1 H MCHC 33.9 RDW 12.5 Plt Count 232 MPV 8.9 Neut # (Auto) 15.5 H Lymph # (Auto) 0.5 L [place] # (Auto) 1.4 H Eos # (Auto) 0.0 Baso # (Auto) 0.1 Absolute Nucleated RBC 0.00 Nucleated RBC % 0.0 Sodium 122 L Potassium 4.2 Chloride 89 L Carbon Dioxide 26 Anion Gap 7.0 BUN 6 Creatinine 0.6 Estimated GFR (MDRD) 96 Glucose 236 H Lactic Acid Calcium 8.4 L Total Bilirubin 0.7 AST 11 ALT 10 Alkaline Phosphatase 68 Total Protein 6.2 L Albumin 3.7 Globulin 2.5 Albumin/Globulin Ratio 1.5 Lipase 16 Urine Color YELLOW Urine Clarity CLEAR Urine pH 7.5 Ur Specific [place] 1.015 Urine Protein NEGATIVE Urine Glucose (UA) 500 H Urine Ketones NEGATIVE Urine Occult Blood NEGATIVE Urine Nitrite NEGATIVE Urine Bilirubin NEGATIVE Urine Urobilinogen 0.2 (NORMAL) Ur Leukocyte Esterase NEGATIVE Ur Microscopic Review NOT INDICATED Urine Culture Comments NOT INDICATED Nasal Adenovirus (PCR) Nasal B. parapertussis DNA (PCR) Nasal Coronavir 229E PCR Nasal Coronavir HKU1 PCR Nasal Coronavir NL63 PCR Nasal Coronavir OC43 PCR Nasal Enterovir/Rhinovir PCR Nasal Influenza B PCR Nasal Influenza A PCR Nasal Parainfluen 1 PCR Nasal Parainfluen 2 PCR Nasal Parainfluen 3 PCR Nasal Parainfluen 4 PCR Nasal RSV (PCR) Nasal B.pertussis DNA PCR Nasal C.pneumoniae (PCR) [place] Human Metapneumo PCR Nasal M.pneumoniae (PCR) Nasal SARS-CoV-2 (PCR) 10/28/22 10/28/22 00:17 00:25 WBC RBC Hgb Hct MCV MCH MCHC RDW Plt Count MPV Neut # (Auto) Lymph # (Auto) [place] # (Auto) Eos # (Auto) Baso # (Auto) Absolute Nucleated RBC Nucleated RBC % Sodium Potassium Chloride Carbon Dioxide Anion Gap BUN Creatinine Estimated GFR (MDRD) Glucose Lactic Acid 1.4 Calcium Total Bilirubin AST ALT Alkaline Phosphatase Total Protein Albumin Globulin Albumin/Globulin Ratio Lipase Urine Color Urine Clarity Urine pH Ur Specific [place] Urine Protein Urine Glucose (UA) Urine Ketones Urine Occult Blood Urine Nitrite Urine Bilirubin Urine Urobilinogen Ur Leukocyte Esterase Ur Microscopic Review Urine Culture Comments Nasal Adenovirus (PCR) NOT DETECTED Nasal B. parapertussis DNA (PCR) NOT DETECTED Nasal Coronavir 229E PCR NOT DETECTED Nasal Coronavir HKU1 PCR NOT DETECTED Nasal Coronavir NL63 PCR NOT DETECTED Nasal Coronavir OC43 PCR NOT DETECTED Nasal Enterovir/Rhinovir PCR NOT DETECTED Nasal Influenza B PCR NOT DETECTED Nasal Influenza A PCR NOT DETECTED Nasal Parainfluen 1 PCR NOT DETECTED Nasal Parainfluen 2 PCR NOT DETECTED Nasal Parainfluen 3 PCR NOT DETECTED Nasal Parainfluen 4 PCR NOT DETECTED Nasal RSV (PCR) NOT DETECTED Nasal B.pertussis DNA PCR NOT DETECTED Nasal C.pneumoniae (PCR) NOT DETECTED [place] Human Metapneumo PCR NOT DETECTED Nasal M.pneumoniae (PCR) NOT DETECTED Nasal SARS-CoV-2 (PCR) NOT DETECTED - Rads (name of study) chest xray Relevant Findings:: Prelim report reviewed, See rad report PD Medical Decision Making - ED course Complexity details: reviewed old records, reviewed results, re-evaluated patient, considered differential, d/w patient, d/w family ED course: Leukocytosis on CBC with WBC 17.6. She is afebrile throughout ED stay although EMS reports 101.8 temperature on their assessment when they first arrived on scene. Normal lactate, normal UA except 500 glucose. Sodium 122 on ER abdominal panel; also note hyperglycemia with glucose 236. She is given 650 mg PO tylenol early in stay to stave off potential recurrence of fever, presuming medic's recorded temperature was correct. Notably, says patient seems significantly improved in mentation on arrival and she is afebrile, and her mental status remained as per my physical exam, above, throughout ED stay. She was able to ambulate with minimal assistance towards end of ED stay. I suspect her weakness and AMS was related to fever. No evidence on exam/VS, test results to suggest either source of fever or sepsis. Regarding her hyponatremia, all previous sodium levels (over two dozen in [facility] dating to 03/05/21) are below normal range. Her sodium levels just last month range from 124-126; thus, 122 (tonight's result) approximates her baseline, though somewhat lower than her average result. She is given total of 1 liter NS (500cc bolus x 2) during ED stay. As noted, her mentation during ED stay was not unusual for patient (per as well as compared to previous ED/inpatient [facility] notes I reviewed (which often reflected significant confusion)), and she had minimal weakness on reevaluation prior to discharge; thus, I suspect the hyponatremia was not causing symptoms, though possibly contributing. No indication for inpatient treatment of hyponatremia at this time nor indication for emergent recheck of sodium level. I reviewed results with patient and her spouse, return precautions were carefully reviewed prior to d/c. Departure - Departure Disposition: 01 Home, Self Care Clinical Impression: Hyponatremia, Weakness Condition: Good Instructions: ED Hyponatremia, ED Weakness [facility] Follow-Up: Boom Acosta MD [Primary Care Provider] - Comments: Your white blood cell count was elevated on tonight's tests; this would generally indicate an infection or inflammatory process, but is not a specific finding (an elevated white blood cell count does not indicate a specific diagnosis). Your sodium was low, but not much lower than multiple previous results; in other words, your sodium is not far off from your baseline. This makes it unlikely that low sodium caused night symptoms, though it is possible it was a contributory factor. You were given IV fluids during your ER stay that should bring the sodium level up a little. The cause of your symptoms is not apparent at this time. Your urinalysis is NOT consistent with a urinary tract infection. You were negative on test for COVID and influenza. There were no findings on the chest xray to suggest an infectious process such as pneumonia. Your blood sugar was elevated tonight, but not high enough to cause symptoms. Contact your primary care provider when the office next opens to arrange for next available appointment for follow-up/reevaluation. Forms: PCP List Discharge Date/Time: 10/28/22 05:08
[2022-10-28] MEDS ORDERED: SODIUM CHLORIDE 0.9% 500 ML IV STA ×2 (00:08→02:52)
[2022-10-28 00:15] LABS: BILIRUBIN,URINE NEGATIVE (NEGATIVE); GLUCOSE, URINE (UA) 500 mg/dL (NEGATIVE); KETONES,URINE (UA) NEGATIVE (NEGATIVE); LEUKOCYTE ESTERASE, URINE NEGATIVE (NEGATIVE); NITRITE,URINE NEGATIVE (NEGATIVE); OCCULT BLOOD,URINE NEGATIVE (NEGATIVE); PH,URINE 7.5 PH (5.0-7.5); PROTEIN,URINE NEGATIVE (NEGATIVE); UROBILINOGEN,URINE 0.2 (NORMAL) E.U./dL (NORMAL)
[2022-10-28 00:16] LABS: CLARITY,URINE CLEAR (CLEAR)
[2022-10-28 00:22] LABS: BASOPHILS # (AUTO) 0.1 10^3/uL (0.0-0.1); BASOPHILS % (AUTO) 0.4 %; EOSINOPHILS % (AUTO) 0.1 %; HCT - HEMATOCRIT 36.6 % (37.0-47.0); HGB - HEMOGLOBIN 12.4 g/dL (12.0-16.0); LYMPHOCYTES # (AUTO) 0.5 10^3/uL (1.5-3.5); LYMPHOCYTES % (AUTO) 2.6 %; MEAN CORPUSCULAR HEMOGLOBIN 33.1 pg (27.0-31.0); MEAN CORPUSCULAR HGB CONC 33.9 g/dL (32.0-36.0); MEAN CORPUSCULAR VOLUME 97.6 fL (81.0-99.0); MEAN PLATELET VOLUME 8.9 fL (7.9-10.8); MONOCYTES # (AUTO) 1.4 10^3/uL (0.0-1.0); MONOCYTES % (AUTO) 8.2 %; NEUTROPHILS # (AUTO) 15.5 10^3/uL (1.5-6.6); NEUTROPHILS % (AUTO) 87.8 %; PLT - PLATELET COUNT 232 10^3/uL (130-450); RED BLOOD COUNT 3.75 10^6/uL (4.20-5.40); RED CELL DISTRIBUTION WIDTH 12.5 % (12.0-15.0); WHITE BLOOD COUNT 17.6 x10^3/uL (4.8-10.8)
[2022-10-28] MEDS ORDERED: ACETAMINOPHEN 325 MG TABLET PO STA (00:27)
[2022-10-28 00:36] LABS: ALBUMIN 3.7 g/dL (3.2-5.5); ALBUMIN/GLOBULIN RATIO 1.5 (1.0-2.2); BILIRUBIN,TOTAL 0.7 mg/dL (0.2-1.0); CALCIUM 8.4 mg/dL (8.5-10.3); CREATININE 0.6 mg/dL (0.6-1.3); POTASSIUM 4.2 mmol/L (3.5-4.5); TOTAL PROTEIN 6.2 g/dL (6.4-8.9)
[2022-10-28 01:22] LABS: B. PARAPERTUSSIS- RESP PCR PAN NOT DETECTED; B. PERTUSSIS- RESP PCR PANEL NOT DETECTED; C. PNEUMONIAE- RESP PCR PANEL NOT DETECTED; CORONAVIRUS 229E-RESP PCR NOT DETECTED; CORONAVIRUS HKU1-RESP PCR NOT DETECTED; CORONAVIRUS NL63-RESP PCR NOT DETECTED; CORONAVIRUS OC43-RESP PCR NOT DETECTED; HUMAN METAPNEUMOVIRUS NOT DETECTED; INFLUENZA A- RESP PCR PANEL NOT DETECTED; INFLUENZA B - RESP PCR PANEL NOT DETECTED; M. PNEUMONIAE- RESP PCR PANEL NOT DETECTED; PARAINFLUENZA VIRUS 1 NOT DETECTED; PARAINFLUENZA VIRUS 2 NOT DETECTED; PARAINFLUENZA VIRUS 3 NOT DETECTED; PARAINFLUENZA VIRUS 4 NOT DETECTED; RHINOVIRUS/ENTEROVIRUS NOT DETECTED; RSV- RESP PCR PANEL NOT DETECTED; SARS-CoV-2 -RESP PCR PANEL NOT DETECTED
--- NOTE | 2022-10-28 01:34 | XRAY Report ---
PROCEDURE: Chest 1 View X-Ray INDICATIONS: fever TECHNIQUE: One view of the chest was acquired. Exam completed and ready for interpretation 10/28/2022 at 1/14 a.m. COMPARISON: 04/25/2022. FINDINGS: Surgical changes and devices: None. Lungs and pleura: No pleural effusions or pneumothorax. Lungs are clear. Mediastinum: Mediastinal contours appear normal. Heart size is normal. Bones and chest wall: No suspicious bony lesions. Overlying soft tissues appear unremarkable. IMPRESSION: No acute cardiopulmonary disease. Reviewed by: Martínez Leyva MD on 10/28/2022 1:32 AM PDT Approved by: Martínez Leyva MD on 10/28/2022 1:32 AM PDT Station ID: [id number]
[2022-10-28 04:33] VITALS: BP 122/51; O2SAT 98
== END 2022-10-28 05:08 | disposition home or self-care (01) ==
LOC: EDUNIT# → ED 23:17
DX: E87.1 Hypo-osmolality and hyponatremia (principal); R53.1 Weakness; F03.90 Unspecified dementia, unspecified severity, without behavioral disturbance, psychotic disturbance, mood disturbance, and anxiety; I10 Essential (primary) hypertension; E11.9 Type 2 diabetes mellitus without complications; Z79.84 Long term (current) use of oral hypoglycemic drugs
CPT/HCPCS: 36415; 71045; 80053; 81003; 83605; 83690; 85025; 87633; 96360; 99283; 99284; A9270; 81001; 87086

== ENCOUNTER 2022-11-18 10:05 | Outpatient (CLI) | payer MEDICARE ==
--- NOTE | 2022-11-18 11:02 | CT Report ---
PROCEDURE: HEAD WO INDICATIONS: FALL, CELLULITIS OF FACE TECHNIQUE: Noncontrast 4.5 mm thick angled axial sections acquired from the foramen magnum to the vertex. For r adiation dose reduction, the following was used: automated exposure control, adjustment of mA and/or kV according to patient size. COMPARISON: CT Head 10/10/22 FINDINGS: Image quality: Excellent. The ventricular system and cortical sulci demonstrate atrophy, consistent for patient's stated age. There are areas of hypodensity in the periventricular and subcortical white matter. There is no acut e intra or extra-axial fluid collection. No acute hemorrhage, mass lesion or midline shift. Brainst em is unremarkable. Globes are symmetrical. Sinuses are aerated. Osseous structures are intact. Left frontal scalp hemato ma. IMPRESSION: 1. No acute intracranial process. 2. Moderate atrophy and chronic microvascular ischemic changes. Reviewed by: Leny Sam MD on 11/18/2022 11:01 AM PDT Approved by: Leny Sam MD on 11/18/2022 11:01 AM PDT Station ID: [id number]
== END 2022-11-18 10:06 | disposition home or self-care (01) ==
LOC: DI 10:05
PROVIDERS: ATTEND Nurse Practitioner Family
DX: L03.211 Cellulitis of face (principal); R29.6 Repeated falls; G31.89 Other specified degenerative diseases of nervous system; I67.82 Cerebral ischemia

== ENCOUNTER 2022-11-29 15:31 | Emergency (ER) | payer MEDICARE ==
--- OUTSIDE RECORDS SUMMARY | 2022-11-29 16:11 | EXTERNAL MEDICAL SUMMARY RPT | Continuity of Care Document ---
Author Name Unknown Address [address] [place] [address] Phone Organization [facility] Address [address] [place] [address] Phone Care Team Providers Care Superintendent Plant Name Role Phone Unavailable Unavailable Unavailable Shania Gamez Pa-C Unavailable Unavailable Medications date description facility 2022-11-16 00:00 metoprolol tartrate [facility] 2022-11-16 00:00 [facility]pranolol [facility] 2022-11-16 00:00 le[facility]iracetam [facility] 2022-11-16 00:00 lisinopril [facility] 2022-11-16 00:00 lisinopril [facility] 2022-11-16 00:00 lisinopril [facility] 2022-11-16 00:00 metoprolol tartrate [facility] 2022-11-16 00:00 nystatin [facility] 2022-11-16 00:00 blood sugar diagnostic [facility] 2022-11-16 00:00 propranolol [facility] 2022-11-16 00:00 blood-glucose meter [facility] 2022-11-16 00:00 lisinopril [facility] 2022-11-16 00:00 lisinopril [facility] 2022-11-16 00:00 clopidogrel [facility] 2022-11-16 00:00 levetiracetam [facility] 2022-11-16 00:00 sertraline [facility] 2022-11-16 00:00 lisinopril [facility] 2022-11-16 00:00 propranolol [facility] 2022-11-16 00:00 metoprolol tartrate [facility] [place] 2022-11-16 00:00 lisinopril [facility] 2022-11-16 00:00 lisinopril [facility] 2022-11-16 00:00 losartan [facility] 2022-11-16 00:00 nystatin [facility] 2022-11-16 00:00 sertraline [facility] 2022-11-16 00:00 blood-glucose meter [facility] [place] 2022-11-16 00:00 blood sugar diagnostic [facility] [place] 2022-11-16 00:00 clopidogrel [facility] 2022-11-16 00:00 nystatin [facility] 2022-11-16 00:00 losartan [facility] [place] 2022-11-16 00:00 sertraline [facility] [place] 2022-11-16 00:00 clopidogrel [facility] [place] 2022-11-16 00:00 levetiracetam [facility] [place] 2022-11-16 00:00 sertraline [facility] [place] 2022-11-16 00:00 losartan [facility] 2022-11-16 00:00 levetiracetam [facility] [place] 2022-11-16 00:00 clopidogrel [facility] [place] 2022-11-16 00:00 propranolol [facility] [place] 2022-11-16 00:00 metoprolol tartrate [facility] [place] 2022-11-16 00:00 nystatin [facility] [place] 2022-11-16 00:00 blood sugar diagnostic [facility] [place] 2022-11-16 00:00 blood-glucose meter [facility] [place] 2022-11-16 00:00 losartan [facility] [place] Problems date description facility 2022-11-07 00:00 Allergic urticaria [facility] [place] Procedures date description facility 2022-11-07 00:00 Visit Code Hold [facility] [place] Social History date description facility 2022-11-07 00:00 Never smoker [facility] [place] Vital Signs date measurement value units 2022-11-07 00:00 BMI 28.82 kg/m2 2022-11-07 00:00 BP_diastolic 71 mmHg 2022-11-07 00:00 BP_systolic 162 mmHg 2022-11-07 00:00 heart_rate 67 /min 2022-11-07 00:00 height_metric 157.48 cm 2022-11-07 00:00 height_standard 62 in 2022-11-07 00:00 respiration_rate 12 /min 2022-11-07 00:00 temperature_metric 36.72 C 2022-11-07 00:00 temperature_standard 98.1 F 2022-11-07 00:00 weight_metric 71.21 kg 2022-11-07 00:00 weight_standard 157 lb
--- NOTE | 2022-11-29 16:27 | ED Physician Documentation ---
PD HPI FOCAL NEURO - Stated complaint Stated Complaint: AMS/R SIDE WEAKNESS - Chief complaint Chief Complaint: Neuro - History obtained from History obtained from: Family - Additional information Additional information: 81-year-old woman presents by private vehicle with her for concern for stroke. She lives at [facility] due to severe dementia. Normally she ambulates along, toilets alone, feeds herself, and would know the date and where she is. In contrast the nurses notes, has been states that she was probably last known normal at 1 and went up to her room at [facility] and he found her at 2:00 very confused and has gotten a little worse and unable to walk. She had a stroke in December of last year leaving her with severe memory difficulties. More recently she was admitted in September of this year for increased confusion and aphasia and at that time it was treated for hyponatremia. Of note, they came by private vehicle and I saw the patient as soon as they got into the room, but there was a triage delay due to high volumes and she only entered the room about 45 minutes after arrival. PD PAST MEDICAL HISTORY - Past Medical History Cardiovascular: Hypertension, High cholesterol Respiratory: Pneumonia Neuro: CVA Endocrine/Autoimmune: Type 2 diabetes GI: GERD, Chronic diarrhea : Other HEENT: None Psych: Anxiety, Panic attacks Musculoskeletal: None Derm: Rosacea - Past Surgical History HEENT: Cataracts - Present Medications Home Medications: Ambulatory Orders Medication Instructions Recorded Confirmed Metformin HCl 1,000 mg PO BIDWM 03/12/16 11/12/22 Simvastatin 60 mg PO QPM 03/12/16 11/12/22 glipiZIDE [Glipizide] 15 mg PO DAILY 03/12/16 11/12/22 Clopidogrel [Plavix] 75 mg PO DAILY 04/22/22 11/12/22 Metoprolol Succinate [Toprol Xl] 50 mg PO DAILY #30 tablet 04/28/22 11/12/22 Sodium Chloride [Salt Tab] 1 gm PO DAILY 06/09/22 11/12/22 Losartan Potassium 1 tab PO DAILY 09/15/22 11/12/22 Sertraline [Zoloft] 1 tab PO DAILY 09/15/22 11/12/22 Nystatin Cream [Mycostatin Cream] 1 applic TOP BID #2 each 09/17/22 levETIRAcetam [Keppra] 250 mg PO BID #60 tab 09/17/22 11/12/22 Ciprofloxacin HCl [Cipro] 500 mg PO BID #14 tablet 11/12/22 - Allergies Allergies/Adverse Reactions: Allergies Allergy/AdvReac Type Severity Reaction Status Date / Time NSAIDS (Non-Steroidal Allergy Respiratory Verified 10/10/22 12:12 Anti-Inflamma - Social History Does the pt smoke?: No Smoking Status: Never smoker PD ED PE NORMAL - Vitals Vital signs reviewed: Yes - General General: Other (She is alert, cannot say her name. She can respond yes or no to simple questions.) - HEENT HEENT: PERRL, EOMI (Will not look to the right past midline) - Neck Neck: Supple, no meningeal sign, No bony TTP - Cardiac Cardiac: RRR, No murmur - Respiratory Respiratory: No respiratory distress, Clear bilaterally - Abdomen Abdomen: Non tender - Neuro Eye Opening: Spontaneous Motor: Obeys Commands Verbal: Confused GCS Score: 14 NIHSS - Time Time: 16:20 - Level of Consciousness Level of consciousness: (0) Alert, Keenly responsive LOC Questions: (2) Answers neither correct LOC Commands: (0) Performs both correctly - Gaze Best Gaze: (1) Partial gaze palsy - Visual Visual: (2) Complete Hemianopia (Does not respond to threat from the right) - Facial Palsy Facial Palsy: (2) Partial paralysis (Right facial droop) - Motor Arms (both separate) Motor Arm (right): (2) Some effort against gravity Motor Arm (left): (0) No drift - Motor Legs (both separate) Motor Leg (right): (1) Drift Motor Leg (left): (0) No drift - Limb Ataxia Limb Ataxia: (0) Absent - Sensory Sensory: (2) Blmigz-gr-jceph loss (No response to painful stimulus right upper or lower extremity) - Best Language Best Language: (2) Severe aphasia - Dysarthria Dysarthria: (0) Normal - Extinction and Inattention (formally neg Extinction and inattention: (1) Visual,tactile,auditory,spatial, or personal inattention - Total Score/Results Total Score/Result: 15 Results - Vitals Vitals: Vital Signs - 24 hr 11/29/22 11/29/22 11/29/22 16:01 17:06 17:07 Temperature 36 C L Heart Rate 84 124 H 136 H Respiratory 16 18 Rate Blood Pressure 138/54 H O2 Saturation 92 74 L 98 If not protocol 5 : Oxygen Flow, liters/minute 11/29/22 11/29/22 11/29/22 17:24 17:30 17:37 Temperature Heart Rate 125 H 131 H 93 Respiratory 20 18 19 Rate Blood Pressure 225/125 H 216/105 H 136/84 H O2 Saturation 99 97 98 If not protocol 3 3 : Oxygen Flow, liters/minute 11/29/22 11/29/22 11/29/22 17:39 17:41 18:05 Temperature 36.8 C Heart Rate 87 98 Respiratory 21 16 Rate Blood Pressure 134/85 H 124/89 H 183/94 H O2 Saturation 98 96 If not protocol 3 : Oxygen Flow, liters/minute 11/29/22 11/29/22 11/29/22 18:21 18:26 18:30 Temperature Heart Rate 100 99 103 H Respiratory 12 15 20 Rate Blood Pressure 160/79 H 141/69 H 150/72 H O2 Saturation 98 96 96 If not protocol 3 3 3 : Oxygen Flow, liters/minute 11/29/22 18:43 Temperature Heart Rate 105 H Respiratory 14 Rate Blood Pressure 167/72 H O2 Saturation 97 If not protocol 3 : Oxygen Flow, liters/minute Oxygen O2 Source [] Room air O2 Source Nasal cannula - EKG (time done) 1711 EKG releavant findings:: EKG personally interpreted by author of this note. Relevant findings are: Rate: Rate (enter#) (133) Rhythm: Sinus tachycardia [place]: Normal Intervals: Normal NM QRS: Normal Ischemia: Normal ST segments - Labs Labs: Laboratory Tests 11/29/22 11/29/22 11/29/22 16:19 17:04 17:04 WBC 8.0 RBC 4.03 L Hgb 13.1 Hct 38.6 MCV 95.8 MCH 32.5 H MCHC 33.9 RDW 12.6 Plt Count 385 MPV 9.1 Neut # (Auto) 5.5 Lymph # (Auto) 1.3 L Hind[place] # (Auto) 0.9 Eos # (Auto) 0.2 Baso # (Auto) 0.1 Absolute Nucleated RBC 0.00 Nucleated RBC % 0.0 PT 11.2 INR 1.0 Sodium Potassium Chloride Carbon Dioxide Anion Gap BUN Creatinine Estimated GFR (MDRD) Glucose POC Whole Bld Glucose 287 H Calcium Total Bilirubin AST ALT Alkaline Phosphatase Total Protein Albumin Globulin Albumin/Globulin Ratio Lipase SARS-CoV-2 (PCR) 11/29/22 11/29/22 17:04 17:57 WBC RBC Hgb Hct MCV MCH MCHC RDW Plt Count MPV Neut # (Auto) Lymph # (Auto) Hind[place] # (Auto) Eos # (Auto) Baso # (Auto) Absolute Nucleated RBC Nucleated RBC % PT INR Sodium 120 L* Potassium 4.1 Chloride 88 L Carbon Dioxide 28 Anion Gap 4.0 L BUN 12 Creatinine 0.7 Estimated GFR (MDRD) 80 L Glucose 260 H POC Whole Bld Glucose Calcium 9.2 Total Bilirubin 0.4 AST 12 ALT 11 Alkaline Phosphatase 74 Total Protein 7.0 Albumin 4.1 Globulin 2.9 Albumin/Globulin Ratio 1.4 Lipase 37 SARS-CoV-2 (PCR) NOT DETECTED - Rads (name of study) CT head and angiography were without bleed or large vessel occlusion. She does have bilateral carotid atherosclerotic narrowings measuring about 50%. Relevant Findings:: Final report received, Discussed with rads, EMP independent interpretation of test, See rad report PD Medical Decision Making - ED course ED course: 81-year-old woman with history of prior stroke presents with concerns for new stroke and fairly high stroke scale with predominantly right-sided deficits. She was seen by me immediately on arrival to the room unfortunately there was a delay in triage. At that point code stroke was activated and she went over to CT. On my "wet read" of the CT I see her prior to her left occipital parietal stroke without acute changes and I do not see an obvious left MCA clot on her angios. We spoke with [facility] telestroke doctor Dr. Cohen who is very concerned about the lack of goran last known normal timing and I will call Raul to see if we can nail that down a little better. r I spoke with Tej, an aide over it Ra[facility] and he confirmed that she actually went back up to her room at 1:30 PM today and she was doing okay then, so that is our best last known normal time. About that time while the EKG was being done the patient vomited and her sats briefly dropped. She was placed on supplemental oxygen. Her blood pressure also spiked and will have to recheck if tPA is being considered. She is curre ntly being seen (5:15 PM) by our teleneurologist, Dr. Cohen. Patient's consented for TNK, but her blood pressure was still fairly high at that point, about 225/125 so blood pressure control will be needed prior to TNK and labetalol bolus and Cardene drip was ordered with instructions to nursing to make this the biggest priority in the department right now. Notified at 5:40 PM that she is severely hyponatremic down to 120. She is chronically hyponatremic but looks like she usually runs around 130. Given that she is confused and off her baseline will order 100 mL bolus of 3% hypertonic saline. At this point her blood pressure is controlled and I asked the nurse to go ahead and give the TNK. TNK bolus given at 1548. Delay to transfer working with Doni to Dr. Martinez at shift change to present to accepting facility. - Critical Care Time(min): 55 Time Includes: Direct patient care, Review records, Reassess patient, Document care, Coordinate care, Medical consult, Family consult for tx dec Data interpretation: Labs, Pulse ox Procedures included in critical care time: Peripheral IV Procedures excluded from critical care time: EKG Departure - Departure Disposition: 02 Transfer Acute Care Hosp Clinical Impression: Cerebrovascular accident (CVA), Neurocognitive deficits, Hyponatremia Condition: Critical Forms: PCP List
[2022-11-29] MEDS ORDERED: ONDANSETRON 4 MG/2 ML VIAL IVP STA (17:00)
[2022-11-29] MEDS ORDERED: iohexoL-300 100 ML VIAL IVP ONE (17:08)
[2022-11-29 17:14] LABS: BASOPHILS # (AUTO) 0.1 10^3/uL (0.0-0.1); BASOPHILS % (AUTO) 1.3 %; EOSINOPHILS # (AUTO) 0.2 10^3/uL (0.0-0.7); EOSINOPHILS % (AUTO) 1.9 %; HCT - HEMATOCRIT 38.6 % (37.0-47.0); HGB - HEMOGLOBIN 13.1 g/dL (12.0-16.0); LYMPHOCYTES # (AUTO) 1.3 10^3/uL (1.5-3.5); LYMPHOCYTES % (AUTO) 16.5 %; MEAN CORPUSCULAR HEMOGLOBIN 32.5 pg (27.0-31.0); MEAN CORPUSCULAR HGB CONC 33.9 g/dL (32.0-36.0); MEAN CORPUSCULAR VOLUME 95.8 fL (81.0-99.0); MEAN PLATELET VOLUME 9.1 fL (7.9-10.8); MONOCYTES # (AUTO) 0.9 10^3/uL (0.0-1.0); MONOCYTES % (AUTO) 10.9 %; NEUTROPHILS # (AUTO) 5.5 10^3/uL (1.5-6.6); NEUTROPHILS % (AUTO) 68.9 %; PLT - PLATELET COUNT 385 10^3/uL (130-450); RED BLOOD COUNT 4.03 10^6/uL (4.20-5.40); RED CELL DISTRIBUTION WIDTH 12.6 % (12.0-15.0)
--- NOTE | 2022-11-29 17:16 | CT Report ---
PROCEDURE: Head W/O Stroke Protocol INDICATIONS: Neuro deficit, acute, stroke suspected TECHNIQUE: Noncontrast 4.5 mm thick angled axial sections acquired from the foramen magnum to the vertex, with c oronal reformats. For radiation dose reduction, the following was used: automated exposure control, adjustment of mA and/or kV according to patient size. COMPARISON: 11/18/2022, 10/10/2022, 09/15/2022 FINDINGS: Image quality: Excellent. CSF spaces: Basal cisterns are patent. No extra-axial fluid collections. Ventricles are normal in size and shape. Brain: No midline shift. No intracranial masses or hemorrhage. Loepz-white matter interface is norm al. There is a remote, stable infarction involving the posterior aspect of the left cerebral hemisphere. Age-appropriate brain parenchymal volume loss and chronic small vessel ischemic change can be seen. Skull and face: Calvarium and visualized facial bones are intact, without suspicious lesions. Sinuses: Visualized sinuses and mastoids are clear. IMPRESSION: No intracranial hemorrhage is seen. No significant intracranial abnormality is seen. If there is strong clinical concern for a stroke, please consider a dedicated brain MRI for further e valuation (assuming that there is no contraindication to MRI). Stable remote, completed left posterior cerebral hemisphere infarction. Note: Case discussed by telephone with Dr. Kamara at 4:13 PM on 11/29/2022. This study fulfills neurological imaging criteria for inclusion or exclusion of acute stroke therapie s based on available published neurological imaging guidelines. Reviewed by: Dre Bledsoe MD on 11/29/2022 4:15 PM ESHA Approved by: Dre Bledsoe MD on 11/29/2022 4:15 PM WIEVI Station ID: [id number]
--- NOTE | 2022-11-29 17:19 | CT Report ---
PROCEDURE: CT Angio Head/Neck INDICATIONS: CVA sx TECHNIQUE: After the administration of intravenous contrast, 1 mm thick sections acquired from the aortic arch t hrough the [place] of [place]. Post-contrast 4.5 mm thick sections then re-acquired from the foramen m agnum to the vertex. 3-dimensional msxfluc-dbbxvlsrq-jmvmwcdhcs (MIP) and/or volume rendering reform ats were acquired of the central intracranial vasculature and neck separately. For radiation dose re duction, the following was used: automated exposure control, adjustment of mA and/or kV according to patient size. CONTRAST: 100ML OMNI 300 COMPARISON: 10/09/2022. Correlation is made with the accompanying uncontrasted CT. FINDINGS: Image quality: Diagnostic. HEAD CT: CSF Spaces: Basal cisterns are patent. No extra-axial fluid collections. Ventricles are normal in size and shape. Brain: No midline shift. No intracranial bleeds or masses. No abnormal intracranial enhancement. S table left posterior cerebral hemisphere infarct. Skull and face: Calvarium and visualized facial bones appear intact, without suspicious lesions. Sinuses: Visualized sinuses and mastoids are clear. HEAD CT ANGIOGRAPHY: Anterior circulation: Intracranial internal carotid arteries are normal in size and flow. The flow within the paired anterior cerebral arteries is normal and symmetric. The flow within the middle cer ebral arteries is normal and symmetric. The anterior communicating artery is seen. No aneurysms are seen. Posterior circulation: Visualized portions of the vertebral arteries demonstrate normal caliber, and join to form a normal appearing basilar artery. Flow within the posterior cerebral arteries is norm al and symmetric. No aneurysms are seen. NECK CT ANGIOGRAPHY: Carotid system: The great vessels demonstrate a conventional anatomy as they arise from the aortic a rc. The origins of the common carotid arteries appear patent. The common carotid arteries demonstr ate normal caliber and courses. The bifurcation regions demonstrate atherosclerotic irregularity and calcification, with approximately 50% narrowing seen on each side. The more distal internal carotid arteries demonstrate normal course and caliber. Posterior circulation: The origins of the vertebral arteries both appear widely patent. The more kimbrough perior extracranial portions of both vertebral arteries also demonstrate normal courses and calibers. They join to form a normal appearing basilar artery. Soft tissues: Visualized neck soft tissues demonstrate no suspicious abnormalities. Bones: No suspicious bony lesions. Visualized cervical spine appears normally aligned. At least mo derate cervical spine degenerative change can be seen. IMPRESSION: No significant intracranial arterial abnormalities are seen. Specifically, no steph left MCA occlusi on is seen. Atherosclerotic irregularity seen involving the carotid bifurcations, with approximately 50% narrowin g is seen on each side. Additional findings: At least moderate cervical spine degenerative change Note: Case discussed by telephone with Dr. Kamara at 4:13 PM on 11/29/2022. The estimate of stenosis included in the report of the imaging study was calculated using the NASCET method Reviewed by: Dre Bledsoe MD on 11/29/2022 4:18 PM AKEVI Approved by: Dre Bledsoe MD on 11/29/2022 4:18 PM ESHA Station ID: [id number]
[2022-11-29 17:23] LABS: PT - PROTHROMBIN TIME 11.2 secs (9.9-12.6)
[2022-11-29] MEDS ORDERED: LABETALOL 20 MG/4 ML SYRINGE IVP STA (17:26)
[2022-11-29] MEDS ORDERED: NICARDIPINE HCL 25 MG in SODIUM CHLORIDE 0.9% 240 ML IV PRN (17:26)
[2022-11-29] MEDS ORDERED: TENECTEPLASE 50 MG/10 ML VIAL IVP STA ×2 (17:26→17:50)
[2022-11-29 17:31] LABS: ALBUMIN 4.1 g/dL (3.2-5.5)
[2022-11-29 17:39] LABS: ALBUMIN/GLOBULIN RATIO 1.4 (1.0-2.2); BILIRUBIN,TOTAL 0.4 mg/dL (0.2-1.0); CALCIUM 9.2 mg/dL (8.5-10.3); CREATININE 0.7 mg/dL (0.6-1.3); POTASSIUM 4.1 mmol/L (3.5-4.5)
[2022-11-29] MEDS ORDERED: NICARDIPINE HCL 25 MG/10 ML VIAL IV ONE (17:41)
[2022-11-29] MEDS ORDERED: SODIUM CHLORIDE 3% HYPERTONIC 100 ML IV SCH (18:00)
[2022-11-29] MEDS ORDERED: METOCLOPRAMIDE 10 MG/2 ML VIAL IVP STA (18:11)
[2022-11-29 19:07] VITALS: BP 160/83; O2SAT 98
--- NOTE | 2022-11-29 19:17 | ED Physician Documentation ---
ED Addendum - Addendum Addendum: Patient signed out to me by Dr. Kamara at shift change. Patient presented with strokelike symptoms and was given TNK. She did require labetalol and Cardene briefly for blood pressure control and also received hypertonic saline for correction of sodium. 11/29/22 19:08 D/W Dr. Levine (Neurology) at [facility] for transfer. Departure - Departure Disposition: 02 Transfer Acute Care Hosp Clinical Impression: Cerebrovascular accident (CVA), Neurocognitive deficits, Hyponatremia Condition: Critical Forms: PCP List Discharge Date/Time: 11/29/22 19:46
== END 2022-11-29 19:46 | disposition short-term general hospital (02) ==
LOC: ED 15:31
DX: I63.9 Cerebral infarction, unspecified (principal); E87.1 Hypo-osmolality and hyponatremia; F03.90 Unspecified dementia, unspecified severity, without behavioral disturbance, psychotic disturbance, mood disturbance, and anxiety; I10 Essential (primary) hypertension; E11.9 Type 2 diabetes mellitus without complications; Z79.84 Long term (current) use of oral hypoglycemic drugs
CPT/HCPCS: 36415; 37195; 70450; 70496; 70498; 80053; 83690; 85025; 85610; 87635; 93005; 96374; 96375; 99291; J2765; J3101; Q9967